=== PATIENT | male | born 1950 | race Caucasian/White ===

== ENCOUNTER 2020-01-07 13:55 | Outpatient (REF) | payer OTHER, SELFPAY ==
--- NOTE | 2020-01-07 14:01 | US_ITS ---
EXAMINATION: US right lumbar region. CLINICAL INFORMATION: Lump COMPARISON: None available at the time of this dictation. TECHNIQUE: High-frequency linear transducer ultrasound utilized, area of interest scanned, lumbar region. FINDINGS: No ultrasound evidence of soft tissue mass, cyst or abscess, or abnormal distortion. Incidental finding was made of gallstones. There is however no tenderness or pericholecystic fluid collection. US/US abdomen limited IMPRESSION: No ultrasound evidence of soft tissue lesion to correlate with the area of palpable lump. If patient remain symptomatic consider correlation with follow-up MRI with IV contrast. Incidental finding was made of cholelithiasis.
== END 2020-01-07 13:56 | disposition home or self-care (01) ==
LOC: HO.HMGCX 13:55
PROVIDERS: PCP Hospitalist; Visit Provider Nurse Practitioner Family
DX: R19.09 Other intra-abdominal and pelvic swelling, mass and lump (principal)
CPT/HCPCS: 76705

== ENCOUNTER 2020-09-28 12:07 | Outpatient (REF) | payer OTHER, SELFPAY ==
[2020-09-28 13:47] LABS: MANUAL DIFF FLAG NO
[2020-09-28 13:54] LABS: Basophils Absolute Auto 0.1 X10*3/uL (0.0-0.2); Basophils Percent Auto 0.9 % (0-2); Eosinophils Absolute Auto 0.3 X10*3/uL (0.0-0.4); Eosinophils Percent Auto 3.8 % (0-4); Hematocrit 43.8 % (42-52); Hemoglobin 14.7 g/dl (14.0-18.0); Imm Gran Abs Auto 0.03 X10*3/uL (0.00-0.03); Imm Gran Pct Auto 0.5 % (0.0-0.4); Lymphocytes Absolute Auto 1.6 X10*3/uL (1.2-4.9); Lymphocytes Percent Auto 24.4 % (20-40); Mean Corpuscular HGB Conc 33.6 g/dl (31.0-36.0); Mean Corpuscular Hemoglobin 33.3 pg (27.0-33.0); Mean Corpuscular Volume 99.1 fL (80-98); Mean Platelet Volume 10.4 fL (9.4-12.4); Monocytes Absolute Auto 0.6 X10*3/uL (0.1-1.2); Monocytes Percent Auto 9.4 % (2-11); Platelet Count 310 X10*3/uL (160-400); Red Blood Count 4.42 X10*6/uL (4.60-5.80); Red Cell Distribution Width 11.7 % (11.0-16.0); White Blood Count 6.6 X10*3/uL (4.8-10.8)
[2020-09-28 14:19] LABS: Alanine Aminotransferase 36 U/L (0-40); Albumin Level 4.6 g/dL (3.5-5.0); Alkaline Phosphatase 144 U/L (39-117); Anion Gap 12 (12-20); Aspartate Amino Transferase 27 U/L (5-37); Bilirubin Total 0.4 mg/dL (0.0-1.0); Blood Urea Nitrogen 22 mg/dL (9-16); Calcium 9.7 mg/dL (8.4-10.2); Carbon Dioxide 31 mmol/L (22-29); Chloride 100 mmol/L (96-108); Estimated Glomerular Filt Rate > 60; Glucose Random 96 mg/dL (60-115); Sodium 138 mmol/L (135-145); Total Protein 7.7 g/dL (6.5-8.0)
== END 2020-09-28 12:08 | disposition home or self-care (01) ==
LOC: HO.HMGCLDS 12:07
PROVIDERS: PCP Hospitalist; Visit Provider Hospitalist
DX: R53.83 Other fatigue (principal); Z20.822 Contact with and (suspected) exposure to COVID-19
CPT/HCPCS: 36415; 80053; 85025; U0003; U0005

== ENCOUNTER → 2020-11-08 08:46 | Outpatient (BNVA) | payer OTHER, SELFPAY | PROVIDERS: PCP Hospitalist; Referring Provider Hospitalist; Visit Provider Internal Medicine | DX: I71.2 Thoracic aortic aneurysm, without rupture (principal); R53.83 Other fatigue | CPT/HCPCS: 93005 ==

== ENCOUNTER → 2020-11-29 13:09 | Outpatient (BNVA) | payer OTHER, SELFPAY | PROVIDERS: PCP Hospitalist; Referring Provider Hospitalist; Visit Provider Internal Medicine ==

== ENCOUNTER → 2021-01-03 10:25 | Outpatient (REF) | payer OTHER, SELFPAY ==
--- NOTE | 2021-01-03 10:24 | CA_ITS ---
Transthoracic Echocardiogram Patient (Last, First, Middle): Alex Samuel, Gender: Male Date of : 1950 Age: 70 Procedure Date: 01/03/2021 Procedure Type: Transthoracic Echocardiogram Location: OP Height: 177.8 cm Weight: 86.18 kg BSA: 2.04 m2 Heart Rate: bpm BP: 140 / 90 mmHg Transition Lead: MAURIZIO Courtney MD: Gavin Cruz MD Floor Molder: Donte Peralta MD Symptoms: I71.2 - Thoracic aortic aneurysm, without rupture Study Quality: Fair ECG Rhythm: Sinus Conclusions: - 1. Normal LV systolic function with LVEF of 60 65% with impaired relaxation filling pattern 2. Normal cardiac valvular Doppler 3. [id number] dilatation of ascending aorta and aortic root, measured at 4.4 cm 4. Normal RV systolic pressure 5. No pericardial effusion Findings Left Ventricle Normal left ventricular size, thickness, and systolic function. The visually estimated ejection fraction is between 60-65%. Spectral Doppler is indicative of an impaired relaxation filling pattern. E/E prime ratio is between 8 and 15 consistent with indeterminate filling pressures. Right Ventricle Normal right ventricular cavity size and systolic function. Atria The left atrium is normal in size. There is lipomatous hypertrophy of the interatrial septum. There is no evidence of interatrial shunt. The right atrium is normal in size. Aortic Valve There is mild calcification of the aortic valve. There is mild thickening of the aortic valve. There is no aortic valve stenosis. There is no aortic valve regurgitation. Mitral Valve There is mild anterior and moderate posterior mitral leaflet thickening. There is moderate mitral annular calcification. There is trace mitral valve regurgitation. There is no mitral valve stenosis. Pulmonic Valve The pulmonic valve was not well visualized. Tricuspid Valve Likely normal tricuspid valve structure and function. There is trace tricuspid valve regurgitation. The right ventricular systolic pressure is normal. The right ventricular systolic pressure is 14 mmHg. There is no evidence of pulmonary hypertension. Great Vessels The pulmonary artery was not well visualized. There is mild dilatation of the ascending aorta measuring 4.40 cm. Venous The inferior vena cava is normal in size and collapses greater than 50% with inspiration. Pericardium/Pleural There is no evidence of pericardial effusion. Prior Study Comparison Changes noted compared to prior study dated: 12/18/2016. Ascending aorta is further dilated on this study at 4.4 cm. Clinical correlation suggested. Consider thoracic CTA Measurements 2D Linear Measurements IVSd: 1.08 0.6-0.9/0.6-1.0 cm LVIDd: 3.50 3.9-5.3/4.2-5.9 cm LVIDd Index: 1.72 2.4-3.2/2.2-3.1 cm/m2 LVIDs: 2.29 2.0-3.6 cm LVPWd: 0.92 0.7-1.1 cm Ao Root: 4.40 2.1-3.5 cm LA Diam: 2.90 2.7-3.8/3.0-4.0 cm LAIDs Index: 1.42 1.5-2.3 cm/m2 LV Mass: 128.35 67-162/88-224 g LV Mass Index: 62.91 43-95/49-115 g/m2 LVOT Diam: 2.00 3.0+(-)1.3 cm 2D Systolic Function EF 4C: 65.50 >55% EF 2C: 64.80 >55% EF BiP: 64.60 >55% Mitral Valve MV Pk E: 0.68 MV PK A: 0.93 MV Decel Time: 217.00 E/A: 0.70 E'Lateral: 5.98 E'Medial: 6.53 E/E' Med: 10.40 E/E' Lat: 11.30 PHT: 64.00 MVA PHT: 3.44 Decel Lewis: 3.11 Aortic Valve AoV Pk Ludwig: 1.19 AoV Mn Ludwig: 0.84 AoV VTI: 0.21 AoV Pk Grad: 6.00 Aov Mn Grad: 3.00 MAEGAN Cont.VTI: 2.13 LVOT LVOT Pk Ludwig: 0.76 LVOT Mn Ludwig: 0.54 LVOT VTI: 0.14 LVOT Pk Grad: 2.00 LVOT Mn Grad: 1.00 LVOT Diam: 2.00 LVOT Area: 3.14 Diastolic Function MV Pk E: 0.68 MV Pk A: 0.93 E/A: 0.70 E'Medial: 6.53 E/E' Med: 10.40 E' Laterial: 5.98 E/E' Lat: 11.30 Right Ventricle TAPSE (mm): 2.21 TVS' Ludwig: 15.60 Tricuspid Valve TR Pk Ludwig: 1.68 TR Pk Grad: 11.00 RA Press: 3.00 RVSP: 14.00 Great Vessels Aorta Ao Root-2D: 4.40 2.0-3.7 cm Ao Asc: 4.40 2.1-3.4 cm Ao Arch: 2.50 Updated in Other Vendor System with Status of Final Donte Peralta MD electronically signed on 01/03/2021 3:17:16 PM with status of Final
== END ==
LOC: HO.CARD 10:25
PROVIDERS: PCP Hospitalist; Visit Provider Internal Medicine
DX: I71.2 Thoracic aortic aneurysm, without rupture (principal)
CPT/HCPCS: 93306

== ENCOUNTER → 2021-01-10 14:33 | Outpatient (BNVA) | payer OTHER, SELFPAY | PROVIDERS: PCP Hospitalist; Referring Provider Hospitalist; Visit Provider Internal Medicine ==

== ENCOUNTER 2021-03-14 08:14 | Outpatient (REF) | payer OTHER, SELFPAY ==
--- NOTE | ~2021-03-14 | CT_ITS ---
EXAMINATION: CT SINUS WITHOUT CONTRAST CLINICAL INFORMATION: Deviated septum. COMPARISON: Normal sinus x-rays 03/02/2019 TECHNIQUE: 2 mm thin axial and reformatted 2 mm thin coronal and sagittal images of the sinuses were obtained. This CT examination was performed using dose optimization techniques as appropriate, variously including the following: *Automated exposure control *Adjustment of mA and/or kV according to patient size (this includes techniques or standardized protocols for targeted exams where dose is matched to indication/reason for exam; i.e. extremities or head) *Use of iterative reconstruction technique DLP: 104 mGy-cm FINDINGS: FRONTAL SINUSES AND DRAINAGE PATHWAYS: There is mild mucoperiosteal thickening with obstructed drainage pathway. MAXILLARY SINUSES AND DRAINAGE PATHWAYS: There is diffuse bilateral maxillary sinus mucoperiosteal thickening with obstructed bilateral ostiomeatal complexes from mucosal thickening. ETHMOID SINUSES: There is diffuse mucoperiosteal thickening in the bilateral ethmoid sinuses. The ethmoid roofs are symmetric, with olfactory fossa depth of 0.4 cm on the right and 0.4 cm on the left. SPHENOID SINUSES AND DRAINAGE PATHWAYS: Normal. The sphenoid ostia are patent. The carotid canals are covered by bone. NASAL CAVITY/NASOPHARYNX: The nasal cavity is clear. There is mild nasal septal deviation/spurring to the right. There is esperanza bullosa of the left middle turbinate. There is mild narrowing of the nasal cavity airway secondary to hypertrophic changes of the left middle and inferior turbinate, likely physiological. ADDITIONAL RELEVANT FINDINGS: No periapical disease is seen. The TMJs articulate normally. The orbits and skull base soft tissues are unremarkable. The middle ear cavities and mastoid air cells are clear. Limited evaluation demonstrates no acute intracranial findings. CT/CT sinus wo con IMPRESSION: Chronic pansinusitis with obstructed bilateral ostiomeatal complexes and frontoethmoidal recesses. Mild deviation of the nasal septum to the right with hypertrophied left turbinates and esperanza bullosa of the middle turbinate.
== END 2021-03-14 08:15 | disposition home or self-care (01) ==
LOC: HO.CT 08:14
PROVIDERS: PCP Hospitalist; Visit Provider Otolaryngology
DX: J34.2 Deviated nasal septum (principal); J33.0 Polyp of nasal cavity
CPT/HCPCS: 70486

== ENCOUNTER → 2021-07-18 13:29 | Outpatient (REF) | payer OTHER, SELFPAY ==
--- NOTE | 2021-07-18 13:37 | CA_ITS ---
Transthoracic Echocardiogram Patient (Last, First, Middle): Alex Samuel, Gender: Male Date of : 1950 Age: 71 Procedure Date: 07/18/2021 Procedure Type: Transthoracic Echocardiogram Height: 175.26 cm Weight: 88.45 kg BSA: 2.04 m2 Heart Rate: bpm BP: 130 / 82 mmHg Ski Patrol Director: SAMANTHA Courtney MD: Gavin Cruz MD Dictating Machine Transcriber: Donte Peralta MD Symptoms: I71.2 - Thoracic aortic aneurysm, without rupture Study Quality: Fair ECG Rhythm: Sinus Conclusions: - 1. Normal LV systolic function with impaired relaxation filling pattern 2. Normal cardiac valvular Doppler 3. Mildly dilated ascending aorta measured at 4.2 cm on this study 4. No pericardial effusion Findings Left Ventricle Normal left ventricular size, thickness, and systolic function. The visually estimated ejection fraction is between 60-65%. Spectral Doppler is indicative of an impaired relaxation filling pattern. E/E prime ratio is between 8 and 15 consistent with indeterminate filling pressures. Right Ventricle Normal right ventricular cavity size and systolic function. Atria Both atria are normal in size. Interatrial shunt cannot be excluded. Aortic Valve The aortic valve was not well visualized. There is mild calcification of the aortic valve. There is no aortic valve stenosis. There is no aortic valve regurgitation. Mitral Valve There is mild anterior and posterior mitral leaflet thickening. There is trace mitral valve regurgitation. There is no mitral valve stenosis. Pulmonic Valve The pulmonic valve was not well visualized. Tricuspid Valve Likely normal tricuspid valve structure and function. Tricuspid regurgitation envelope is inadequate for calculation of right ventricular systolic pressure. Great Vessels The pulmonary artery was not well visualized. There is mild dilatation of the ascending aorta measuring 4.20 cm. Venous The inferior vena cava is normal in size and collapses greater than 50% with inspiration. Pericardium/Pleural There is no evidence of pericardial effusion. Prior Study Comparison No significant change compared to prior study dated: 01/03/2021. ascending aorta measured to 4.2 cm, could be underestimated on this study Measurements 2D Linear Measurements IVSd: 0.98 0.6-0.9/0.6-1.0 cm LVIDd: 4.06 3.9-5.3/4.2-5.9 cm LVIDd Index: 1.99 2.4-3.2/2.2-3.1 cm/m2 LVIDs: 2.99 2.0-3.6 cm LVPWd: 0.85 0.7-1.1 cm LA Diam: 2.80 2.7-3.8/3.0-4.0 cm LAIDs Index: 1.37 1.5-2.3 cm/m2 LV Mass: 142.15 67-162/88-224 g LV Mass Index: 69.68 43-95/49-115 g/m2 LVOT Diam: 2.50 3.0+(-)1.3 cm Mitral Valve MV Pk E: 0.64 MV PK A: 1.04 MV Decel Time: 154.00 E/A: 0.60 E'Lateral: 7.40 E'Medial: 6.31 E/E' Med: 10.20 E/E' Lat: 8.70 PHT: 45.00 MVA PHT: 4.89 Decel [place]: 4.17 Aortic Valve AoV Pk Ludwig: 1.39 AoV Mn Ludwig: 0.94 AoV VTI: 0.23 AoV Pk Grad: 8.00 Aov Mn Grad: 4.00 MAEGAN Cont.VTI: 4.36 LVOT LVOT Pk Ludwig: 1.10 LVOT Mn Ludwig: 0.70 LVOT VTI: 0.21 LVOT Pk Grad: 5.00 LVOT Mn Grad: 2.00 LVOT Diam: 2.50 LVOT Area: 4.91 Diastolic Function MV Pk E: 0.64 MV Pk A: 1.04 E/A: 0.60 E'Medial: 6.31 E/E' Med: 10.20 E' Laterial: 7.40 E/E' Lat: 8.70 Right Ventricle TAPSE (mm): 27.80 TVS' Ludwig: 19.00 Tricuspid Valve RA Press: 3.00 Great Vessels Aorta Sinus of Valsalva: 4.03 2.0-3.[address] Ridge: 3.72 1.7-3.4 cm Ao Asc: 4.20 2.1-3.4 cm Ao Arch: 2.80 Ao Desc: 1.50 Pulmonary Veins Pulm Vein S/D 1.80 Pulmonary Valve PV Pk Ludwig: 0.90 Peak PV Grad: 3.00 Updated in Other Vendor System with Status of Final Dnote Peralta MD electronically signed on 07/20/2021 2:50:06 PM with status of Final
== END ==
LOC: HO.CARD 13:29
PROVIDERS: Visit Provider Internal Medicine
DX: I71.2 Thoracic aortic aneurysm, without rupture (principal)
CPT/HCPCS: 93306

== ENCOUNTER → 2021-07-25 14:25 | Outpatient (BNVA) | payer OTHER, SELFPAY | PROVIDERS: PCP Hospitalist; Referring Provider Hospitalist; Visit Provider Internal Medicine | DX: I10 Essential (primary) hypertension (principal) ==

== ENCOUNTER → 2022-07-19 08:42 | Outpatient (REF) | payer OTHER, SELFPAY ==
--- NOTE | 2022-07-19 08:47 | CA_ITS ---
Transthoracic Echocardiogram Patient (Last, First, Middle): Alex Samuel, Gender: Male Date of : 1950 Age: 72 Procedure Date: 07/19/2022 Procedure Type: Transthoracic Echocardiogram Location: OP Height: 177.8 cm Weight: 90.72 kg BSA: 2.09 m2 Heart Rate: bpm BP: 124 / 78 mmHg Page Designer: TO Referring MD: Gavin Cruz MD Symptoms: I71.2 - Thoracic aortic aneurysm, without rupture Study Quality: Fair ECG Rhythm: Sinus Conclusions: - The left ventricular systolic function is normal. The calculated ejection fraction is 63% by biplane method. - No obvious valvular pathology seen on this study. - There is mild dilatation of the ascending aorta measuring 4.20 cm. Findings Left Ventricle Normal left ventricular cavity size. The left ventricular systolic function is normal. The calculated ejection fraction is 63% by biplane method. There is no evidence of regional wall motion abnormalities. Evidence suggests grade I (mild) diastolic dysfunction. There is moderate septal asymmetric hypertrophy. Right Ventricle Normal right ventricular cavity size and systolic function. Atria Both atria are normal in size. Aortic Valve There is a normal trileaflet aortic valve. There is mild calcification of the aortic valve. There is no aortic valve stenosis. There is no aortic valve regurgitation. Mitral Valve There is mild anterior mitral leaflet thickening. There is no mitral valve regurgitation. There is no mitral valve stenosis. Pulmonic Valve The pulmonic valve is likely normal. Tricuspid Valve There is trace tricuspid valve regurgitation. There is no evidence of pulmonary hypertension. Great Vessels There is mild dilatation of the ascending aorta measuring 4.20 cm. Venous The inferior vena cava is normal in size and collapses greater than 50% with inspiration. Pericardium/Pleural There is no evidence of pericardial effusion. Prior Study Comparison No significant change compared to prior study dated: 07/18/2021. Recommendations, Care & Conclusions No obvious valvular pathology seen on this study. Measurements 2D Linear Measurements IVSd: 1.44 0.6-0.9/0.6-1.0 cm LVIDd: 3.81 3.9-5.3/4.2-5.9 cm LVIDd Index: 1.82 2.4-3.2/2.2-3.1 cm/m2 LVIDs: 2.34 2.0-3.6 cm LVPWd: 0.86 0.7-1.1 cm LA Diam: 3.50 2.7-3.8/3.0-4.0 cm LAIDs Index: 1.67 1.5-2.3 cm/m2 LV Mass: 180.17 67-162/88-224 g LV Mass Index: 86.21 43-95/49-115 g/m2 LVOT Diam: 2.40 3.0+(-)1.3 cm 2D Systolic Function EF 4C: 62.50 >55% EF 2C: 67.00 >55% EF BiP: 62.80 >55% Mitral Valve MV Pk E: 0.54 MV PK A: 0.86 MV Decel Time: 163.00 E/A: 0.60 E'Lateral: 6.20 E'Medial: 6.09 E/E' Med: 8.90 E/E' Lat: 8.70 PHT: 48.00 MVA PHT: 4.58 Decel [place]: 3.30 Aortic Valve AoV Pk Ludwig: 1.31 AoV Mn Ludwig: 0.85 AoV VTI: 0.23 AoV Pk Grad: 7.00 Aov Mn Grad: 3.00 MAEGAN Cont.VTI: 3.85 LVOT LVOT Pk Ludwig: 1.02 LVOT Mn Ludwig: 0.66 LVOT VTI: 0.20 LVOT Pk Grad: 4.00 LVOT Mn Grad: 2.00 LVOT Diam: 2.40 LVOT Area: 4.52 Diastolic Function MV Pk E: 0.54 MV Pk A: 0.86 E/A: 0.60 E'Medial: 6.09 E/E' Med: 8.90 E' Laterial: 6.20 E/E' Lat: 8.70 Right Ventricle TAPSE (mm): 27.40 TVS' Ludwig: 15.30 Tricuspid Valve RA Press: 3.00 Great Vessels Aorta Sinus of Valsalva: 4.07 2.0-3.[address] Ridge: 3.54 1.7-3.4 cm Ao Asc: 4.20 2.1-3.4 cm Ao Arch: 3.90 Updated in Other Vendor System with Status of Final Gavin Cruz MD electronically signed on 07/21/2022 9:27:15 AM with status of Final
== END ==
LOC: HO.CARD 08:42
PROVIDERS: PCP Physician Assistant; Visit Provider Internal Medicine
DX: I71.20 Thoracic aortic aneurysm, without rupture, unspecified (principal)
CPT/HCPCS: 93306

== ENCOUNTER → 2022-07-29 14:16 | Outpatient (BNVA) | payer OTHER, SELFPAY | PROVIDERS: PCP Physician Assistant; Referring Provider Hospitalist; Visit Provider Internal Medicine | DX: I10 Essential (primary) hypertension (principal); I71.20 Thoracic aortic aneurysm, without rupture, unspecified | CPT/HCPCS: 93005 ==

== ENCOUNTER → 2022-08-19 12:17 | Outpatient (REF) | payer OTHER, SELFPAY ==
--- NOTE | 2022-08-19 12:19 | CA_ITS ---
Acquisition Time: 2022-08-19 12:50:58 Total Exercise Time: 00:05:30 Test Indications: CAD, HTN Medications: SEE H Protocol: TEQUILA Max HR: 150 BPM 102% of Pred: 147 BPM Max BP: 148/080 mmHG Max Work Load: 5.8 METS Exercise stress test with exercise 5 min 30 sec of Tequila stage 1 ( incline increased to 12% and for last 30 sec speed increased to 2 MPH), with fatigue and request to stop, without anginal symptoms, with isolated PVCs, with normotensive response to exercise, without EKG changes meeting criteria for ischemia. Echo images obtained at rest and immediately post peak exercise. Definity contrast used. Test reviewed with Dr Peralta. Referred By: Gavin Cruz Overread By: NETO LOBO
== END ==
LOC: HO.CARD 12:17
PROVIDERS: PCP Physician Assistant; Visit Provider Internal Medicine
DX: I25.10 Atherosclerotic heart disease of native coronary artery without angina pectoris (principal)
CPT/HCPCS: 93350; Q9957

== ENCOUNTER 2023-05-18 16:09 | Inpatient (IN) | payer OTHER, SELFPAY ==
--- NOTE | ~2023-05-18 | FL_ITS ---
EXAMINATION: XR FLUOROSCOPY WITH IMAGES CLINICAL INFORMATION: ERCP. COMPARISON: CT abdomen pelvis 05/18/2023. TECHNIQUE: Fluoroscopy Supervised By: Dr. Barber. Fluoroscopy Time: 0.9 minutes. Cumulative Dose: 26.4 mGy. DAP: 7.21 Gycm2. Images: 8. FINDINGS: An endoscope is present with a catheter cannulating the common bile duct. Contrast is injected. No large filling defects are seen, but please see Dr. Barber's operative note for full details. FL/FL guidance in OR IMPRESSION: Fluoroscopy and spot films provided during ERCP.
--- NOTE | ~2023-05-18 | US_ITS ---
EXAMINATION: US ABDOMEN LIMITED CLINICAL INFORMATION: Epigastric pain. Elevated LFTs. COMPARISON: 01/07/2020 TECHNIQUE: Real-time imaging of the right upper quadrant abdominal viscera. FINDINGS: PANCREAS: Not well-visualized due to overlying bowel gas. LIVER: Diffuse increased echogenicity. The liver is normal in size. The liver contour is normal. No focal hepatic lesion. There is no intrahepatic biliary duct dilatation seen. GALLBLADDER: Tiny gallstones and sludge no acute inflammatory changes. COMMON BILE DUCT: Normal in caliber measuring 0.5 cm in diameter. RIGHT KIDNEY: Normal. No hydronephrosis. No renal calculi or focal parenchymal lesions. The kidney measures 10.1 cm in maximum dimension. FREE FLUID: None. US/US abdomen limited IMPRESSION: Tiny gallstones and sludge without acute inflammatory changes.
--- NOTE | ~2023-05-18 | CT_ITS ---
EXAMINATION: CT ABDOMEN AND PELVIS WITH CONTRAST CLINICAL INFORMATION: Epigastric pain COMPARISON: None available. TECHNIQUE: Multidetector volumetric images were obtained from the superior aspect of the liver through the pubic symphysis following administration 85 mL of Omnipaque 350 intravenous contrast. Sagittal and coronal reformatted images were obtained on the technologist's workstation. Oral contrast: No This CT examination was performed using dose optimization techniques as appropriate, variously including the following: *Automated exposure control *Adjustment of mA and/or kV according to patient size (this includes techniques or standardized protocols for targeted exams where dose is matched to indication/reason for exam; i.e. 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 There is chronic. Coronary calcifications. LIVER, GALLBLADDER, AND BILIARY TREE: The liver is normal in size, shape, and attenuation. No focal hepatic lesion or biliary ductal dilatation is present. Multiple small gallstones within the gallbladder. No gallbladder wall thickening. No bile duct dilatation. PANCREAS: Unremarkable. SPLEEN: Unremarkable. ADRENAL GLANDS: Unremarkable. KIDNEYS AND URETERS: The kidneys are normal in size, shape, and attenuation. No hydronephrosis, hydroureter, or calculi seen. No perinephric stranding. BLADDER: Unremarkable. GASTROINTESTINAL TRACT: There are scattered diverticula of the sigmoid colon. There is no diverticulitis. There is no bowel wall thickening /edema. There is no bowel obstruction. There is a moderate volume of stool in the colon. The appendix is normal . The small bowel loops are unremarkable. The stomach is normal. There is no hiatal hernia. ABDOMINAL WALL: No significant hernia is appreciated. LYMPH NODES: Normal. VASCULAR: Vascular calcifications of aorta and iliac arteries. No aneurysm. PELVIC VISCERA: Unremarkable. OSSEOUS STRUCTURES: Multilevel degenerative spondylosis spine. CT/CT abdomen pelvis w IV con IMPRESSION: 1. No acute abnormality CT scan abdomen pelvis. 2. Cholelithiasis. No acute change of the gallbladder. No bile duct dilatation. Fleischner guidelines were followed.
--- NOTE | ~2023-05-18 | FL_ITS ---
EXAMINATION: XR FLUOROSCOPY WITH IMAGES CLINICAL INFORMATION: Laparoscopic cholecystectomy with cholangiogram. COMPARISON: Dr. Ortega TECHNIQUE: Fluoroscopy Supervised By: Dr. Ortega. Fluoroscopy Time: 19.1 seconds Cumulative Dose: 4.84 mGy-cm DAP: None. Images: 4. FINDINGS: Catheter is present in the common bile duct via the cystic duct. Contrast fills the biliary tree with no filling defects seen. A small amount of contrast is seen in the duodenum. Please see Dr. Ortega's report for complete details. FL/FL guidance in OR IMPRESSION: Fluoroscopy and spot films provided during intraoperative cholangiography.
--- NOTE | ~2023-05-18 | MR_ITS ---
EXAMINATION: MR ABDOMEN WITHOUT CONTRAST CLINICAL INFORMATION: Cholangitis versus choledocholithiasis. COMPARISON: CT abdomen/pelvis 05/18/2023 TECHNIQUE: MR abdomen is performed without gadolinium contrast. Heavily T2 weighted MRCP sequences were also obtained. FINDINGS: LUNG BASES: No pleural or pericardial effusion. LIVER, GALLBLADDER, AND BILIARY TREE: The liver is normal in size and contour.. Hepatic steatosis. The common duct measures up to 8 mm at the pepito hepatis. No intraductal filling defects. Mild intrahepatic biliary ductal dilatation is present. The gallbladder is hydropic with numerous layering gallstones. There is gallbladder wall thickening. PANCREAS: Proximal main pancreatic duct measures up to 4 mm. SPLEEN: Not enlarged. ADRENAL GLANDS: No adrenal mass. KIDNEYS AND URETERS: The kidneys are normal in size and shape. No hydronephrosis. Nonspecific perinephric stranding. GASTROINTESTINAL TRACT: Imaged loops of small and large bowel are not obstructed. LYMPH NODES: No bulky lymphadenopathy. VASCULAR: Normal caliber abdominal aorta. MR/MR MRCP IMPRESSION: Hydropic gallbladder with gallbladder wall thickening and layering gallstones. Findings may represent acute cholecystitis. There is dilatation of the proximal main pancreatic duct and common duct as well as the central intrahepatic ducts. An ampullary lesion cannot be excluded.
[2023-05-18 16:53] VITALS: BP 141/78; PULSE 100; RESP 19; TEMP 36.6; O2SAT 98; BMI 29.4
--- NOTE | 2023-05-18 17:37 | ED.ABDPAIN ---
HPI - Abdominal Pain General Chief Complaint: Abdominal Pain Stated Complaint: IBS/upper stomach pain Time Seen by Provider: 05/18/23 21:18 Source: patient Mode of arrival: ambulatory Limitations: no limitations History of Present Illness HPI narrative: Patient comes to the emergency room complaining of epigastric pain since this morning. Patient states that he has history of IBS, is being followed by gastroenterology. Patient states that the pain is a little bit more different than his usual IBS. Patient denies any fever chills, no nausea vomiting or diarrhea. Denies any chest pain. Related Data Home Medications Medication Instructions Recorded Confirmed fluoxetine 20 mg capsule 20 mg PO DAILY 01/04/20 05/19/23 ibuprofen 800 mg tablet 800 mg PO TID PRN 01/04/20 07/29/22 omeprazole 40 mg capsule,delayed 40 mg PO DAILY 01/04/20 05/19/23 release pravastatin 10 mg tablet 10 mg PO DAILY 11/08/20 05/19/23 amlodipine 5 mg tablet 5 mg PO DAILY 07/25/21 07/29/22 amlodipine 5 mg-olmesartan 20 mg 1 tab PO DAILY 05/19/23 05/19/23 tablet fluticasone furoate 200 1 ea inhalation DAILY 05/19/23 mcg-vilanterol 25 mcg/dose inhalation powder (Breo Ellipta) Allergies Allergy/AdvReac Type Severity Reaction Status Date / Time No Known Allergies Allergy Verified 05/18/23 16:53 [No Known Allergies*] Review of Systems Review of Systems Constitutional : No Weight loss, No Fever, No Chills, No Night Sweats, No Fatigue, No Malaise ENT/Mouth : No Hearing loss, No Ear Pain, No Nasal Congestion, No Sinus Pain, No Hoarseness, No sore throat, No Rhinorrhea, No Swallowing Difficulty Eyes: No Eye Pain, No Swelling, No Redness, No Foreign Body, No Discharge, No Vision Changes Cardiovascular : No Chest Pain, No SOB, No Dyspnea on Exertion, No Orthopnea, No Edema, No Palpitations Respiratory : No Cough, No Sputum, No Wheezing, No Smoke Exposure, No Dyspnea Gastrointestinal : No Nausea, No Vomiting, No Diarrhea, No Constipation, complaining of epigastric pain, constant, nonradiating, No Hematochezia, No Melena Genitourinary : no irregular bleeding, No Dysuria, No Urinary Frequency, No Hematuria, No Urinary Incontinence, No Urgency, No Flank Pain, No Urinary Flow Changes, No Hesitancy Musculoskeletal : No joint pain, No Myalgias, No Joint Swelling Skin : No Skin Lesions, No rash Neuro : No Weakness, No Numbness, No Paresthesias, No Loss of Consciousness, No Dizziness, No Headache Psych : No Anxiety/Panic, No Depression, No SI/HI/AH/VH, No Social Issues, Heme/Lymph: No Bruising, No Bleeding,No Lymphadenopathy Endocrine : No Polyuria, No Polydipsia, No Temperature Intolerance [facility] Past Medical History Medical History (Updated 05/19/23 @ 01:43 by Theresa Nj MD) IBS (irritable bowel syndrome) Essential hypertension Ascending aortic aneurysm Surgical History History of lumbar surgery (~2012) Family History Family History Father Cancer Mother Cancer Social History Social History Alcohol intake: current Alcohol intake frequency: 0-2 drinks per day Patient Tobacco Use Status: Never used Tobacco Smoked in Last 30 Days: No Use of substances other than those prescribed or required for medical reasons: No Advance Directives: No Advance Directives Information Provided: No Physical Exam ED Vital Signs: Vital Signs - 24 hr 05/18/23 16:53 05/18/23 21:35 05/19/23 00:00 Temperature 98 F 98.2 F 98.5 F Pulse Rate 100 98 97 Respiratory Rate 19 18 19 Blood Pressure 141/78 H 143/80 H 113/63 Pulse Oximetry 98 94 96 Oxygen Delivery Method Room Air Room Air Room Air 05/19/23 01:46 Temperature 101.2 F H Pulse Rate 100 Respiratory Rate 18 Blood Pressure 137/114 H Pulse Oximetry 96 Oxygen Delivery Method Room Air BMI result Body Mass Index 29.4 Const Other: Appearance: Alert. Oriented X3. No acute distress. Eyes: Pupils equal, round and reactive to light. ENT: Pharynx normal. Neck: Normal inspection. Neck supple. No lymph nodes noted. No crepitus CVS: Normal heart rate and rhythm. Pulses normal. Normal S1 and S2 Respiratory: No respiratory distress. Breath sounds normal. No Wheezing. No rales Abdomen: Soft , mild discomfort to palpation in epigastric area, negative Stephens sign, No rigidity. No distention. Skin: Skin warm and dry. Normal skin color. Normal skin turgor. Extremities: No lower extremity edema. No Lacerations. No Rash Neuro: Oriented X 3. No motor deficit. No sensory deficit. Moving all extremities. No slurred speech. CN 2 through 12 grossly intact Psych: calm, cooperative, normal affect Course Course Course Narrative: This is a rapid medical exam. Deferred additional HPI, ROS, PE to primary provider. 73-year-old male with history of IBS, HTN, ascending aortic aneurysm here with complaints of mid abdominal pain. No nausea/vomiting/diarrhea/urinary symptoms. Will obtain labs, EKG, UA, viral testing VSS Medical Decision Making Medical Decision Making MDM Narrative: My interpretation of labs, white blood cell count elevated, 17.3, LFTs are elevated, normal chemistry otherwise, troponin negative, lipase normal -my interpretation of EKG: Normal sinus rhythm, heart rate 108, no ST segment depression or elevation, no T-wave inversion, QTC 426 -patient does not have a fever, normal blood pressure. -patient's LFTs are elevated, patient admits that he drinks 2 beers every night, which may be causing the elevation in LFTs. -ultrasound: No acute abnormality other than tiny gallstones and sludge without inflammatory changes -CT scan of the abdomen: My interpretation, no obvious acute abnormality. Cholelithiasis without cholecystitis -patient states that he feels back to normal, mild abdominal pain but states that he has no nausea vomiting, feels well and would like to go home. At this time, 01:10, when I went to see the patient, patient states that he has no significant abdominal pain,. However, the patient feels warm to touch. I asked 1 of the techs to check a rectal temperature, patient has a fever of 101.8. Blood pressure is still stable. -Patient receiving IV fluids and antibiotics. -source of infection remains unclear. Chest x-ray pending, lactic acid and blood culture pending -I discussed the patient with Dr. Israel from Gastroenterology, patient will need an MRCP in the morning. At this time, it is unclear if the patient has acute cholangitis, but can not be ruled out yet -also, I discussed the patient with Dr. Wren from the Medicine team, patient being admitted. -I discussed the above-mentioned with the patient, patient agreeable with admission. Differential Diagnosis Differential Diagnoses: The differential diagnosis associated with the presentation includes (Ascending cholangitis, cholecystitis, pancreatitis, colitis, IBS) Admission/Observation Consideration of admission/observation: Escalation of care including admission/observation considered (Given patient's history of symptoms and labs, admission is considered) Consult Healthcare Provider Management of the patient was discussed with: Hospitalist and [employer] [facility] Lab Data MDM Lab Attestation statement: I reviewed the patient's lab results. 05/18/23 17:27 05/18/23 17:27 Labs: Lab Results 05/18/23 05/18/23 05/18/23 Range/Units 17:27 17:41 19:14 WBC 17.3 H (4.8-10.8) X10*3/uL RBC 4.19 L (4.60-5.80) X10*6/uL Hgb 14.9 (14.0-18.0) g/dl Hct 41.5 L (42.0-52.0) % MCV 99.0 H (80.0-98.0) fL MCH 35.6 H (27.0-33.0) pg MCHC 35.9 (31.0-36.0) g/dl RDW 11.5 (11.0-16.0) % Plt Count 339 (160-400) X10*3/uL MPV 9.3 L (9.4-12.4) fL Immature Gran % (Auto) 0.6 H (0.0-0.4) % Neut % (Auto) 86.3 H (45-73) % Lymph % (Auto) 7.5 L (20-40) % Falls % (Auto) 4.3 (2-11) % Eos % (Auto) 0.9 (0-4) % Baso % (Auto) 0.4 (0-2) % Lymph # (Auto) 1.3 (1.2-4.9) X10*3/uL Falls # (Auto) 0.7 (0.1-1.2) X10*3/uL Eos # (Auto) 0.2 (0.0-0.4) X10*3/uL Baso # (Auto) 0.1 (0.0-0.2) X10*3/uL Abs Immat Gran (auto) 0.11 H (0.00-0.03) X10*3/uL Absolute Neuts (auto) 14.9 H (2.0-8.3) x10*3/uL Absolute Nucleated RBC 0.000 (0.0-0.012) X10*3/uL Nucleated RBC % (auto) 0.0 (0.0-0.2) /100WBC PT (11.1-13.3) SEC INR (0.9-1.1) APTT (26.0-36.8) SEC Sodium 137 (135-145) mmol/L Potassium 4.6 (3.3-5.1) mmol/L Chloride 102 (96-108) mmol/L Carbon Dioxide 25 (22-29) mmol/L Anion Gap 15 (12-20) BUN 15 (9-16) mg/dL Creatinine 0.91 (0.5-1.4) mg/dL Estim Creat Clear Calc 81.5 Estimated GFR > 60 Random Glucose 145 H (60-115) mg/dL Lactic Acid (0.5-2.0) mmol/L Calcium 9.4 (8.4-10.2) mg/dL Total Bilirubin 1.6 H (0.0-1.0) mg/dL Direct Bilirubin 1.1 H (0.0-0.5) mg/dL AST 127 H (5-37) U/L ALT 90 H (0-40) U/L Alkaline Phosphatase 174 H (39-117) U/L Troponin I High Sens 3.6 (<3.5-35.0) ng/L Total Protein 8.1 H (6.5-8.0) g/dL Albumin 4.5 (3.5-5.0) g/dL Lipase 43 (8-78) U/L Urine Color Dark Yellow Urine Appearance Clear Urine pH 7.0 (5.0-9.0) Ur Specific [place] 1.015 (1.005-1.025) Urine Protein Negative (Neg-Trace) mg/dL Urine Glucose (UA) Negative (Negative) mg/dL Urine Ketones Negative (Negative) mg/dL Urine Blood Negative (Negative) Urine Nitrite Negative (Negative) Ur Leukocyte Esterase Negative (Negative) Influenza Type A (PCR) NEGATIVE (Negative) Influenza Type B (PCR) NEGATIVE (Negative) RSV RNA Qual (PCR) NEGATIVE (Negative) SARS-CoV-2 RNA (RT-PCR) NEGATIVE (Negative) 05/19/23 Range/Units 01:38 WBC (4.8-10.8) X10*3/uL RBC (4.60-5.80) X10*6/uL Hgb (14.0-18.0) g/dl Hct (42.0-52.0) % MCV (80.0-98.0) fL MCH (27.0-33.0) pg MCHC (31.0-36.0) g/dl RDW (11.0-16.0) % Plt Count (160-400) X10*3/uL MPV (9.4-12.4) fL Immature Gran % (Auto) (0.0-0.4) % Neut % (Auto) (45-73) % Lymph % (Auto) (20-40) % Falls % (Auto) (2-11) % Eos % (Auto) (0-4) % Baso % (Auto) (0-2) % Lymph # (Auto) (1.2-4.9) X10*3/uL [place] # (Auto) (0.1-1.2) X10*3/uL Eos # (Auto) (0.0-0.4) X10*3/uL Baso # (Auto) (0.0-0.2) X10*3/uL Abs Immat Gran (auto) (0.00-0.03) X10*3/uL Absolute Neuts (auto) (2.0-8.3) x10*3/uL Absolute Nucleated RBC (0.0-0.012) X10*3/uL Nucleated RBC % (auto) (0.0-0.2) /100WBC PT 12.3 (11.1-13.3) SEC INR 1.0 (0.9-1.1) APTT 26.4 (26.0-36.8) SEC Sodium (135-145) mmol/L Potassium (3.3-5.1) mmol/L Chloride (96-108) mmol/L Carbon Dioxide (22-29) mmol/L Anion Gap (12-20) BUN (9-16) mg/dL Creatinine (0.5-1.4) mg/dL Estim Creat Clear Calc Estimated GFR Random Glucose (60-115) mg/dL Lactic Acid 1.1 (0.5-2.0) mmol/L Calcium (8.4-10.2) mg/dL Total Bilirubin (0.0-1.0) mg/dL Direct Bilirubin (0.0-0.5) mg/dL AST (5-37) U/L ALT (0-40) U/L Alkaline Phosphatase (39-117) U/L Troponin I High Sens (<3.5-35.0) ng/L Total Protein (6.5-8.0) g/dL Albumin (3.5-5.0) g/dL Lipase (8-78) U/L Urine Color Urine Appearance Urine pH (5.0-9.0) Ur Specific [place] (1.005-1.025) Urine Protein (Neg-Trace) mg/dL Urine Glucose (UA) (Negative) mg/dL Urine Ketones (Negative) mg/dL Urine Blood (Negative) Urine Nitrite (Negative) Ur Leukocyte Esterase (Negative) Influenza Type A (PCR) (Negative) Influenza Type B (PCR) (Negative) RSV RNA Qual (PCR) (Negative) SARS-CoV-2 RNA (RT-PCR) (Negative) Independent Interpretation I performed an independent interpretation of an: Ultrasound and CT Scan Radiology Impression Discussion of test interpretation with radiology: I have reviewed the radiologist's reading. Radiologist Impression: FINDINGS: PANCREAS: Not well-visualized due to overlying bowel gas. LIVER: Diffuse increased echogenicity. The liver is normal in size. The liver contour is normal. No focal hepatic lesion. There is no intrahepatic biliary duct dilatation seen. GALLBLADDER: Tiny gallstones and sludge no acute inflammatory changes. COMMON BILE DUCT: Normal in caliber measuring 0.5 cm in diameter. RIGHT KIDNEY: Normal. No hydronephrosis. No renal calculi or focal parenchymal lesions. The kidney measures 10.1 cm in maximum dimension. FREE FLUID: None. US/US abdomen limited IMPRESSION: Tiny gallstones and sludge without acute inflammatory changes. 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 There is chronic. Coronary calcifications. LIVER, GALLBLADDER, AND BILIARY TREE: The liver is normal in size, shape, and attenuation. No focal hepatic lesion or biliary ductal dilatation is present. Multiple small gallstones within the gallbladder. No gallbladder wall thickening. No bile duct dilatation. PANCREAS: Unremarkable. SPLEEN: Unremarkable. ADRENAL GLANDS: Unremarkable. KIDNEYS AND URETERS: The kidneys are normal in size, shape, and attenuation. No hydronephrosis, hydroureter, or calculi seen. No perinephric stranding. BLADDER: Unremarkable. GASTROINTESTINAL TRACT: There are scattered diverticula of the sigmoid colon. There is no diverticulitis. There is no bowel wall thickening /edema. There is no bowel obstruction. There is a moderate volume of stool in the colon. The appendix is normal . The small bowel loops are unremarkable. The stomach is normal. There is no hiatal hernia. ABDOMINAL WALL: No significant hernia is appreciated. LYMPH NODES: Normal. VASCULAR: Vascular calcifications of aorta and iliac arteries. No aneurysm. PELVIC VISCERA: Unremarkable. OSSEOUS STRUCTURES: Multilevel degenerative spondylosis spine. CT/CT abdomen pelvis w IV con IMPRESSION: 1. No acute abnormality CT scan abdomen pelvis. 2. Cholelithiasis. No acute change of the gallbladder. No bile duct dilatation. Independent Historian Clinical information obtained from an independent historian. History obtained from or confirmed by: Other (Patient's daughter) Medications Administered Discontinued Medications Generic Name Dose Route Start Last Admin Trade Name Freq PRN Reason Stop Dose Admin Acetaminophen 975 mg 05/19/23 01:18 05/19/23 01:40 Acetaminophen 325 Mg Tablet PO 05/19/23 01:19 975 mg ONCE ONE Administration Piperacillin Sod/Tazobactam 50 mls @ 100 mls/hr 05/19/23 01:11 05/19/23 02:10 Sod 3.375 gm/ Sodium Chloride IV 05/19/23 01:40 Infused ONCE ONE Infusion Sodium Chloride 1,000 mls @ 999 mls/hr 05/19/23 01:12 05/19/23 01:40 Ns IVCONT 05/19/23 02:12 999 mls/hr .Q1H1M ONE Administration Iohexol 85 ml 05/18/23 23:55 05/18/23 23:55 Iohexol 350 Mg/Ml 100 Ml Infus..Btl IV 05/18/23 23:56 85 ml ONCE ONE Administration Morphine Sulfate 1 mg 05/19/23 01:04 05/19/23 01:38 Morphine Sulfate 2 Mg/Ml Cartridge IVPUSH 05/19/23 01:05 1 mg ONCE ONE Administration Protocol Critical Care Time Critical Care Time Critical Care Time: Yes Total Critical Care Time: 75 Attestation: I have personally provided critical care time. Time includes review of lab data, radiology results, discussion with consultants, and monitoring for potential decompensation. Intervention performed as documented. Discharge Plan Discharge Clinical Impression: Acute cholangitis Patient Disposition: Admitted As Inpatient
--- NOTE | 2023-05-18 17:39 | ECG_ITS ---
Test Reason : ABD PAIN Blood Pressure : / mmHG Vent. Rate : 108 BPM Atrial Rate : 108 BPM P-R Int : 196 ms QRS Dur : 084 ms QT Int : 318 ms P-R-T Axes : 045 -02 049 degrees QTc Int : 426 ms Sinus tachycardia Otherwise normal ECG When compared with ECG of 20-MAR-2017 17:08, No significant change was found Referred By: Kerrie Liao Electronically Signed By:GUILLE TORRES MD
[2023-05-18 17:58] LABS: MANUAL DIFF FLAG NO
[2023-05-18 17:59] LABS: Basophils Absolute Auto 0.1 X10*3/uL (0.0-0.2); Basophils Percent Auto 0.4 % (0-2); Eosinophils Absolute Auto 0.2 X10*3/uL (0.0-0.4); Eosinophils Percent Auto 0.9 % (0-4); Hematocrit 41.5 % (42.0-52.0); Hemoglobin 14.9 g/dl (14.0-18.0); Imm Gran Abs Auto 0.11 X10*3/uL (0.00-0.03); Imm Gran Pct Auto 0.6 % (0.0-0.4); Lymphocytes Absolute Auto 1.3 X10*3/uL (1.2-4.9); Lymphocytes Percent Auto 7.5 % (20-40); Mean Corpuscular HGB Conc 35.9 g/dl (31.0-36.0); Mean Corpuscular Hemoglobin 35.6 pg (27.0-33.0); Mean Platelet Volume 9.3 fL (9.4-12.4); Monocytes Absolute Auto 0.7 X10*3/uL (0.1-1.2); Monocytes Percent Auto 4.3 % (2-11); Neutrophils Absolute Auto 14.9 x10*3/uL (2.0-8.3); Neutrophils Percent Auto 86.3 % (45-73); Platelet Count 339 X10*3/uL (160-400); Red Blood Count 4.19 X10*6/uL (4.60-5.80); Red Cell Distribution Width 11.5 % (11.0-16.0); White Blood Count 17.3 X10*3/uL (4.8-10.8)
[2023-05-18 18:20] LABS: Alanine Aminotransferase 90 U/L (0-40); Albumin Level 4.5 g/dL (3.5-5.0); Alkaline Phosphatase 174 U/L (39-117); Anion Gap 15 (12-20); Aspartate Amino Transferase 127 U/L (5-37); Bilirubin Direct 1.1 mg/dL (0.0-0.5); Bilirubin Total 1.6 mg/dL (0.0-1.0); Blood Urea Nitrogen 15 mg/dL (9-16); Calcium 9.4 mg/dL (8.4-10.2); Carbon Dioxide 25 mmol/L (22-29); Chloride 102 mmol/L (96-108); Creatinine Clr Calc Pharmacy 81.5; Estimated Glomerular Filt Rate > 60; Glucose Random 145 mg/dL (60-115); Lipase 43 U/L (8-78); Potassium 4.6 mmol/L (3.3-5.1); Sodium 137 mmol/L (135-145); Total Protein 8.1 g/dL (6.5-8.0)
[2023-05-18 18:32] LABS: Troponin-I High Sensitivity 3.6 ng/L (<3.5-35.0)
[2023-05-18 18:36] LABS: Influenza A PCR NEGATIVE (Negative); Influenza B PCR NEGATIVE (Negative); Resp Syncy Virus RNA Qual PCR NEGATIVE (Negative); SARS COV2 PCR INHOUSE NEGATIVE (Negative)
[2023-05-18 19:21] LABS: Appearance Urine Clear; Color Urine Dark Yellow; Glucose Urine UA Negative (Negative); Leukocyte Esterase Urine Negative (Negative); Nitrite Urine Negative (Negative); Specific Gravity - Urine 1.015 (1.005-1.025); Urine Blood Negative (Negative); Urine Ketones Negative (Negative); Urine Protein Negative (Neg-Trace)
[2023-05-18 21:35] VITALS: BP 143/80; PULSE 98; RESP 18; TEMP 36.8; O2SAT 94
--- NOTE | 2023-05-18 21:40 | PC.NURSE ---
this rn assumed care of pt. pt from home, a&ox4, respirations even and unlabored. pt reporting increasing abdominal pain for one week. pt denies n/v/d. 20G placed in left ac at this time. pt taken to ultrasound at this time.
[2023-05-18] MEDS: iohexoL 350 MG/ML 100 ML INFUS..BTL 85 ML IV (23:55)
[2023-05-19] VITALS (13 sets, daily range): BP systolic 91–168; BP diastolic 59–114; PULSE 75–100; RESP 16–20; TEMP 36.3–38.4; O2SAT 93–98; BMI 29.3
[2023-05-19] MEDS: Morphine Sulfate 2 MG/ML CARTRIDGE 1 MG IVPUSH (01:38)
[2023-05-19] MEDS: 0.9 % Sodium Chloride 1,000 ML 999 ML IVCONT (01:40)
[2023-05-19] MEDS: Piperacillin Sodium/Tazobactam 3.375 GM in 0.9 % Sodium Chloride 50 ML IV ×4 (01:40→20:29)
[2023-05-19] MEDS: Acetaminophen 325 MG TABLET 975 MG PO (01:40)
[2023-05-19 01:50] LABS: Prothrombin Time 12.3 SEC (11.1-13.3)
[2023-05-19 01:52] LABS: Partial Thromboplastin Time 26.4 SEC (26.0-36.8)
[2023-05-19 01:55] LABS: Lactic Acid 1.1 mmol/L (0.5-2.0)
--- NOTE | 2023-05-19 01:58 | PC.NURSE ---
pt meeting sepsis criteria at 0138, this RN addressed sepsis protocol with , made sepsis call at 0154.
--- NOTE | 2023-05-19 02:17 | PM.IMHP ---
History of Present Illness Date of Service: 05/19/23 Attending physician on admission: Delfino Zafar Chief Complaint: Abdominal pain Alex Samuel is a 73 years old man with past medical history significant for essential hypertension and hyperlipidemia presents to the emergency department complaining of epigastric pain that started this morning. Denies associated nausea, vomiting, diarrhea, fever or chills. He also denied any acute urinary symptoms. Denies chest pain or shortness on breath. Last meal was peanut butter sandwich at lunchtime. No jaundice or yellowish sclera. He denied history abdominal surgeries. He drinks alcohol daily -2 light beers do not drink alcohol today. Did not report tobacco smoking or illicit drug use. In the ED, he was found to have temperature of 1.2. There is no tachycardia or hypotension. The and saturation is normal on room air. Blood workup is remarkable for marked leukocytosis, 17.3. Lactic acidosis. Hemoglobin and platelets are normal. There are no electrolyte imbalances. Creatinine is 0.981. LFTs are elevated (elevated direct bilirubin). Lipase is normal. Abdominal pelvis CT scan showed no acute abdominal pathology. There is cholelithiasis without cholecystitis or common bile dilatation. Abdominal and showed tiny gallstones and sludge without acute inflammation denies changes (CBD 0.5 cm). ED tx: Zosyn 3.375 g, acetaminophen 975 mg p.o., morphine 1 mg IV Review of Systems Review of Systems: All 12 systems were reviewed and normal except as noted in HPI. [facility] Medical History (Updated 05/19/23 @ 04:31 by Delfino Zafar MD) IBS (irritable bowel syndrome) Essential hypertension Ascending aortic aneurysm Family History Father Cancer Mother Cancer Surgical History History of lumbar surgery (~2012) Social History Alcohol intake: current Alcohol intake frequency: 0-2 drinks per day Patient Tobacco Use Status: Never used Tobacco Smoked in Last 30 Days: No Use of substances other than those prescribed or required for medical reasons: No Advance Directives: No Advance Directives Information Provided: No Nutrition Risks: No Nutritional Risk Meds Allergies Allergy/AdvReac Type Severity Reaction Status Date / Time No Known Allergies Allergy Verified 05/18/23 16:53 [No Known Allergies*] Active Medications: Current Medications Sodium Chloride (Ns) 1,000 mls @ 100 mls/hr IVCONT .Q10H JASON Piperacillin Sod/Tazobactam (Sod 3.375 gm/ Sodium Chloride) 50 mls @ 100 mls/hr IV ONCE ONE Stop: 05/19/23 09:29 Pantoprazole Sodium (Pantoprazole Sodium 40 Mg/10 Ml Vial) 40 mg IVPUSH DAILY [facility] Sodium Chloride (0.9 % Sodium Chloride Flush 3 Ml Syringe) 3 ml IVFLUSH QSHIFT [facility] Home Medications Medication Instructions Recorded Confirmed Last Taken Type fluoxetine 20 mg capsule 20 mg PO DAILY 01/04/20 05/19/23 Unknown History ibuprofen 800 mg tablet 800 mg PO TID PRN 01/04/20 07/29/22 Unknown History omeprazole 40 mg capsule,delayed 40 mg PO DAILY 01/04/20 05/19/23 Unknown History release pravastatin 10 mg tablet 10 mg PO DAILY 11/08/20 05/19/23 Unknown History amlodipine 5 mg tablet 5 mg PO DAILY 07/25/21 07/29/22 Unknown History amlodipine 5 mg-olmesartan 20 mg 1 tab PO DAILY 05/19/23 05/19/23 Unknown History tablet fluticasone furoate 200 1 ea inhalation DAILY 05/19/23 Unknown History mcg-vilanterol 25 mcg/dose inhalation powder (Breo Ellipta) Physical Exam Vital Signs and Narrative: Vital Signs: Last Vital Signs Temp 101.2 F H 05/19/23 01:46 Pulse 100 05/19/23 01:46 Resp 18 05/19/23 01:46 BP 137/114 H 05/19/23 01:46 Pulse Ox 96 05/19/23 01:46 O2 Del Method Room Air 05/19/23 01:46 BMI result Body Mass Index 29.4 Constitutional - Awake and Alert, No apparent distress. Cooperative. HEENT - Dry oral mucosa. Heart - S1S2, RRR, No edema Lungs - Normal lung expansion, Normal respiratory effort, No respiratory distress, CTA bilaterally Abdomen - Distended; +BS; minimal epigastric tenderness. No rebound or guarding Extremities - no calf tenderness bilaterally, no swelling Musculoskeletal - Normal inspection, normal ROM Skin - Warm/Dry Neurological - Alert & oriented x3. No focal weakness grossly noted. Psychological - Appropriate affect Results Labs 05/18/23 17:27 05/18/23 17:27 Labs: Laboratory Results - last 24 hr 05/18/23 05/18/23 05/18/23 17:27 17:41 19:14 MCV 99.0 H MCH 35.6 H MCHC 35.9 RDW 11.5 Plt Count 339 MPV 9.3 L Immature Gran % (Auto) 0.6 H Neut % (Auto) 86.3 H Lymph % (Auto) 7.5 L [place] % (Auto) 4.3 Eos % (Auto) 0.9 Baso % (Auto) 0.4 Lymph # (Auto) 1.3 [place] # (Auto) 0.7 Eos # (Auto) 0.2 Baso # (Auto) 0.1 Abs Immat Gran (auto) 0.11 H Absolute Neuts (auto) 14.9 H Absolute Nucleated RBC 0.000 Nucleated RBC % (auto) 0.0 PT INR APTT Anion Gap 15 Estim Creat Clear Calc 81.5 Estimated GFR > 60 Random Glucose 145 H Lactic Acid Calcium 9.4 Total Bilirubin 1.6 H Direct Bilirubin 1.1 H AST 127 H ALT 90 H Alkaline Phosphatase 174 H Troponin I High Sens 3.6 Total Protein 8.1 H Albumin 4.5 Lipase 43 Urine Color Dark Yellow Urine Appearance Clear Urine pH 7.0 Ur Specific [place] 1.015 Urine Protein Negative Urine Glucose (UA) Negative Urine Ketones Negative Urine Blood Negative Urine Nitrite Negative Ur Leukocyte Esterase Negative Influenza Type A (PCR) NEGATIVE Influenza Type B (PCR) NEGATIVE RSV RNA Qual (PCR) NEGATIVE SARS-CoV-2 RNA (RT-PCR) NEGATIVE 05/19/23 01:38 MCV MCH MCHC RDW Plt Count MPV Immature Gran % (Auto) Neut % (Auto) Lymph % (Auto) [place] % (Auto) Eos % (Auto) Baso % (Auto) Lymph # (Auto) [place] # (Auto) Eos # (Auto) Baso # (Auto) Abs Immat Gran (auto) Absolute Neuts (auto) Absolute Nucleated RBC Nucleated RBC % (auto) PT 12.3 INR 1.0 APTT 26.4 Anion Gap Estim Creat Clear Calc Estimated GFR Random Glucose Lactic Acid 1.1 Calcium Total Bilirubin Direct Bilirubin AST ALT Alkaline Phosphatase Troponin I High Sens Total Protein Albumin Lipase Urine Color Urine Appearance Urine pH Ur Specific [place] Urine Protein Urine Glucose (UA) Urine Ketones Urine Blood Urine Nitrite Ur Leukocyte Esterase Influenza Type A (PCR) Influenza Type B (PCR) RSV RNA Qual (PCR) SARS-CoV-2 RNA (RT-PCR) Imaging Radiologist's Impressions: Impressions Abdomen Ultrasound 05/18/23 22:05 IMPRESSION: Tiny gallstones and sludge without acute inflammatory changes. Abdomen/Pelvis CT 05/19/23 00:00 IMPRESSION: 1. No acute abnormality CT scan abdomen pelvis. 2. Cholelithiasis. No acute change of the gallbladder. No bile duct dilatation. Fleischner guidelines were followed. Assessment and Plan (1) Acute cholangitis: Status: Acute (2) Essential hypertension: Status: Acute (3) Ascending aortic aneurysm: Qualifiers: Presence of rupture: without rupture Qualified Code(s): I71.21 - Aneurysm of the ascending aorta, without rupture Status: Acute Plan Alex Samuel is a 73 years old man admitted with: Abdominal pain associated with elevated LFTs and fever. Normal lipase. Normal CBD (on abd US and CT scan). Likely acute cholangitis; there is cholelithiasis/sludge (no cholecystitis). Sepsis criteria. No confusion noted. Admit to hospitalist service. Keep NPO. Continue empiric IV antibiotic therapy with Zosyn. Continue IV fluids. Blood cultures obtained -will follow results. Check hepatitis panel. Continue to monitor WBCs and LFTs. Obtain MRCP. GI consult. Hyperlipidemia. Statin on hold due to elevated LFTs. Essential hypertension. Continue amlodipine/olmesartan (or alternative). Alcohol consumption. [facility] protocol. As aortic aneurysm (4.2 cm). Outpatient follow-up, Dr. Gavin Cruz. DVT prophylaxis: SCDs Code status: Full Patient will need hospitalization for at least 2 midnights for acute cholangitis treatment with IV antibiotics and IV fluids and will also need close monitoring of vital signs and blood workup as well as evaluation by subspecialty. Quality Stroke Does the patient have a stroke diagnosis?: No VTE Prior VTE?: No VTE Risk Level:: Medical - moderate - high VTE Device Contraindication: N/A - Device Ordered VTE Drug Contraindication: Treatment Not Indicated
[2023-05-19] MEDS: Melatonin 3 MG TABLET 6 MG PO (02:44)
[2023-05-19] MEDS: 0.9 % Sodium Chloride 1,000 ML 100 ML IVCONT ×3 (02:44→19:21)
--- NOTE | 2023-05-19 03:20 | PC.NURSE ---
provider aware of pt BP, no new orders at this time.
[2023-05-19] MEDS: 0.9 % Sodium Chloride 1,000 ML 999 ML IV (03:42)
--- NOTE | 2023-05-19 03:43 | PC.NURSE ---
provider aware of pt bp, fluid bolus begun at this time.
--- NOTE | 2023-05-19 05:09 | PC.NURSE ---
pt ambulating to bathroom with steady gait at this time, reports need for Bowel Movement.
[2023-05-19 05:17] LABS: MANUAL DIFF FLAG NO
[2023-05-19 05:21] LABS: Basophils Percent Auto 0.4 % (0-2); Eosinophils Absolute Auto 0.1 X10*3/uL (0.0-0.4); Eosinophils Percent Auto 0.8 % (0-4); Hematocrit 33.2 % (42.0-52.0); Hemoglobin 11.8 g/dl (14.0-18.0); Imm Gran Abs Auto 0.04 X10*3/uL (0.00-0.03); Imm Gran Pct Auto 0.4 % (0.0-0.4); Lymphocytes Absolute Auto 1.3 X10*3/uL (1.2-4.9); Lymphocytes Percent Auto 14.8 % (20-40); Mean Corpuscular HGB Conc 35.5 g/dl (31.0-36.0); Mean Corpuscular Hemoglobin 35.3 pg (27.0-33.0); Mean Corpuscular Volume 99.4 fL (80.0-98.0); Mean Platelet Volume 9.4 fL (9.4-12.4); Monocytes Absolute Auto 0.7 X10*3/uL (0.1-1.2); Monocytes Percent Auto 7.8 % (2-11); Neutrophils Absolute Auto 6.9 x10*3/uL (2.0-8.3); Neutrophils Percent Auto 75.8 % (45-73); Platelet Count 263 X10*3/uL (160-400); Red Blood Count 3.34 X10*6/uL (4.60-5.80); Red Cell Distribution Width 11.7 % (11.0-16.0); White Blood Count 9.1 X10*3/uL (4.8-10.8)
[2023-05-19 05:40] LABS: Alanine Aminotransferase 241 U/L (0-40); Albumin Level 3.3 g/dL (3.5-5.0); Alkaline Phosphatase 143 U/L (39-117); Anion Gap 13 (12-20); Aspartate Amino Transferase 219 U/L (5-37); Bilirubin Total 2.5 mg/dL (0.0-1.0); Blood Urea Nitrogen 15 mg/dL (9-16); Calcium 7.8 mg/dL (8.4-10.2); Carbon Dioxide 22 mmol/L (22-29); Chloride 107 mmol/L (96-108); Creatinine Clr Calc Pharmacy 80.7; Estimated Glomerular Filt Rate > 60; Glucose Random 102 mg/dL (60-115); Magnesium 1.7 mg/dL (1.6-2.6); Potassium 3.8 mmol/L (3.3-5.1); Sodium 138 mmol/L (135-145); Total Protein 5.7 g/dL (6.5-8.0)
[2023-05-19 05:58] LABS: HBS Num1 0.12 mIU/mL (0-7.99); HBc Num1 0.18 S/CO (0.00-0.79); Hepatitis B Core Antibody Nonreactive (Nonreactive); Hepatitis B Surface Antigen Negative (Negative); ~Hepatitis B Surface Antibody NONREACTIVE (Nonreactive); ~Hepatitis C Antibody Nonreactive (Nonreactive)
[2023-05-19 06:05] LABS: Hepatitis A Antibody IgM 0.15 Index (0-0.79); ~Hepatitis A Antibody IgM Nonreactive (Nonreactive)
--- NOTE | 2023-05-19 08:24 | PHA.MEDREC ---
Addendum entered by Tiffany Maria [facility] 05/19/23 08:31: Provider aware of amlodipine discrpancy, okay per Dr. Michelle to keep amlodipine/olmesartan. Original Note: Pharmacy Consult ? Medication Reconciliation Pharmacy has completed the medication reconciliation. Confirmed medications with patient and through claim history. Patient reports that he takes Amlodipine and not Amlodipine-olmesartan 5-20 which is in his claim history as being prescribed in Apr. Confirmed with [facility] that a 90 day supply was picked up.
[2023-05-19] MEDS: Pantoprazole Sodium 40 MG/10 ML VIAL IVPUSH (08:25)
[2023-05-19] MEDS: amLODIPine Besylate 5 MG TABLET PO (08:26)
[2023-05-19] MEDS: Valsartan 80 MG TABLET PO (08:26)
[2023-05-19] MEDS: Morphine Sulfate 2 MG/ML CARTRIDGE IVPUSH ×3 (09:06→19:16)
--- NOTE | 2023-05-19 11:07 | PM.GICN ---
History of Present Illness Data of Consult Service Date: 05/19/23 Requesting physician: Theresa Nj Primary Care Provider: ELIZABETH Ahn Reason for consult: Acute cholangitis This is a 73-year-old gentleman with past medical history of ascending aortic aneurysm (4.2 cm on echo 07/2022), hypertension, who presented to the hospital yesterday afternoon for abdominal pain and fevers. Gastroenterology has been consulted for concern of acute cholangitis. Patient reports having dull midepigastric abdominal pain starting after breakfast that progressed by noon time prompting emergency room visit. This was associated with nausea, but no vomiting. T-max 101 degrees. No change in bowel habits. He has not had this severity and character of pain before. On arrival to the emergency room, he was noted to be febrile but hemodynamically stable. Labs were significant for leukocytosis to 17.3 and elevated LFTs. Ultrasound abdomen at that time showed cholelithiasis but with normal CBD caliber. He was admitted for concern of acute cholangitis and started on IV fluids and antibiotics. This morning, patient is afebrile. Bilirubin has increased to 2.5, remaining LFTs are also higher than yest. MRCP is pending. Review of Systems Review of Systems: Yes all other systems are reviewed and are negative [facility] Past Medical History Medical History (Updated 05/19/23 @ 13:39 by Karen Reed MD) IBS (irritable bowel syndrome) Essential hypertension Ascending aortic aneurysm Family History Family History Father Cancer Mother Cancer Surgical History Surgical History History of lumbar surgery (~2012) Social History Social History Household Members: Family Housing: House Do you presently have visiting nurse or other home services: No Alcohol intake: current Alcohol intake frequency: 0-2 drinks per day Patient Tobacco Use Status: Never used Tobacco service: No Meds Allergies Allergy/AdvReac Type Severity Reaction Status Date / Time No Known Allergies Allergy Verified 05/18/23 16:53 [No Known Allergies*] Active Medications: Current Medications Albuterol Sulfate (Albuterol Sulfate 90 Mcg 8 Gm Inhaler) 2 puff INHALE Q6H PRN PRN Reason: wheezing Amlodipine Besylate (Amlodipine Besylate 5 Mg Tablet) 5 mg PO DAILY [facility] Last Admin: 05/19/23 08:26 Dose: 5 mg Cyclobenzaprine HCl (Cyclobenzaprine Hcl 10 Mg Tablet) 10 mg PO BEDTIME PRN PRN Reason: Muscle Spasm Fluoxetine HCl (Fluoxetine Hcl 20 Mg Capsule) 20 mg PO DAILY [facility] Fluticasone/Vilanterol (Fluticasone/Vilanterol 200/25 Blst.W.Dev) 1 puff INHALE DAILY [facility] Hydralazine HCl (Hydralazine Hcl 25 Mg Tablet) 25 mg PO TID [facility]; Protocol Last Admin: 05/19/23 03:31 Dose: Not Given Sodium Chloride (Ns) 1,000 mls @ 100 mls/hr IVCONT .Q10H [facility] Last Admin: 05/19/23 02:44 Dose: 100 mls/hr Ipratropium [place] (Ipratropium [place] Kyle 0.03 % 30 Ml [place]) 2 spray NOSTRIL-B TID PRN PRN Reason: allergies Melatonin (Melatonin 3 Mg Tablet) 6 mg PO BEDTIME PRN PRN Reason: Insomnia Last Admin: 05/19/23 02:44 Dose: 6 mg Morphine Sulfate (Morphine Sulfate 2 Mg/Ml Cartridge) 2 mg IVPUSH Q3H PRN; Protocol PRN Reason: Pain, Severe (Pain Scale 7-10) Last Admin: 05/19/23 09:06 Dose: 2 mg Multivitamins/Vitamin C (Multivitamin Tablet) 1 tab PO DAILY [facility] Omeprazole (Omeprazole 40 Mg Capsule.Dr) 40 mg PO DAILY@0630 [facility] Pantoprazole Sodium (Pantoprazole Sodium 40 Mg/10 Ml Vial) 40 mg IVPUSH DAILY [facility] Last Admin: 05/19/23 08:25 Dose: 40 mg Propranolol HCl (Propranolol Hcl 10 Mg Tablet) 10 mg PO TID [facility]; Protocol Last Admin: 05/19/23 03:31 Dose: Not Given Sodium Chloride (0.9 % Sodium Chloride Flush 3 Ml Syringe) 3 ml IVFLUSH QSHIFT [facility] Last Admin: 05/19/23 08:33 Dose: Not Given Valsartan (Valsartan 80 Mg Tablet) 80 mg PO DAILY [facility] Last Admin: 05/19/23 08:26 Dose: 80 mg Home Medications Medication Instructions Recorded Confirmed Last Taken Type fluoxetine 20 mg capsule 20 mg PO DAILY 01/04/20 05/19/23 05/18/23 History ibuprofen 800 mg tablet 800 mg PO TID PRN Pain 01/04/20 05/19/23 05/18/23 History omeprazole 40 mg capsule,delayed 40 mg PO DAILY 01/04/20 05/19/23 05/18/23 History release pravastatin 10 mg tablet 10 mg PO DAILY 11/08/20 05/19/23 05/18/23 History albuterol sulfate 90 mcg/actuation 2 puff inhalation Q6H PRN wheezing 05/19/23 05/19/23 05/18/23 History aerosol inhaler amlodipine 5 mg-olmesartan 20 mg 1 tab PO DAILY 05/19/23 05/19/23 Unknown History tablet fluticasone furoate 200 1 ea inhalation DAILY 05/19/23 05/19/23 05/18/23 History mcg-vilanterol 25 mcg/dose inhalation powder (Breo Ellipta) ipratropium bromide 21 mcg (0.03 2 spray intranasal TID PRN 05/19/23 05/19/23 05/18/23 History %) nasal spray allergies multivitamin 1 tab PO DAILY 05/19/23 05/19/23 05/18/23 History prasterone (dhea) 50 mg tablet 100 mg PO DAILY 05/19/23 05/19/23 05/18/23 History (DHEA) Physical Exam Vital Signs: Vital Signs: Last Vital Signs Temp 97.3 F 05/19/23 08:33 Pulse 83 05/19/23 08:33 Resp 16 05/19/23 08:33 BP 168/81 H 05/19/23 08:33 Pulse Ox 98 05/19/23 08:33 O2 Del Method Room Air 05/19/23 08:33 BMI result Body Mass Index 29.3 Appears comfortable on bedside assessment No significant icterus appreciated on exam Abdomen soft, mildly distended, mild tenderness without guarding + nonpitting edema in extremities Alert and oriented x3, no focal deficits Results Labs 05/19/23 04:27 05/19/23 04:27 Labs: Short CBC 05/18/23 05/19/23 Range/Units 17:27 04:27 WBC 17.3 H 9.1 (4.8-10.8) X10*3/uL Hgb 14.9 11.8 L D (14.0-18.0) g/dl Hct 41.5 L 33.2 L (42.0-52.0) % Plt Count 339 263 (160-400) X10*3/uL BMP 05/18/23 05/19/23 17:27 04:27 Sodium 137 138 Potassium 4.6 3.8 Chloride 102 107 Carbon Dioxide 25 22 BUN 15 15 Creatinine 0.91 0.92 Calcium 9.4 7.8 L D Liver Function 05/18/23 05/19/23 Range/Units 17:27 04:27 Total Bilirubin 1.6 H 2.5 H (0.0-1.0) mg/dL Direct Bilirubin 1.1 H (0.0-0.5) mg/dL AST 127 H 219 H (5-37) U/L ALT 90 H 241 H (0-40) U/L Alkaline Phosphatase 174 H 143 H (39-117) U/L Albumin 4.5 3.3 L (3.5-5.0) g/dL Urine 05/18/23 Range/Units 19:14 Urine Color Dark Yellow Urine Appearance Clear Urine pH 7.0 (5.0-9.0) Ur Specific [place] 1.015 (1.005-1.025) Urine Protein Negative (Neg-Trace) mg/dL Urine Glucose (UA) Negative (Negative) mg/dL Assessment and Plan (1) Acute cholangitis: Status: Acute (2) Cholelithiasis: Status: Acute Plan High probability of CBD stone given signs of acute cholangitis. Other differentials include acute judy but exam and sonographic appearance not consistent. Plan: - MRCP awaited - Keep pt NPO - Cont IVF and ABx as per sepsis protocol - ERCP contingent on findings on MRI - Non urgent surgical consultation for interval cholecystectomy Thank you for allowing me to participate in his care. Please do not hesitate to reach out for any questions or concerns. Procedures Date of Service Date of Service: 05/19/23
--- NOTE | 2023-05-19 11:55 | MHC.CM.PN ---
pt is independent and working has transport home willnot need servies when dcd
[2023-05-19] MEDS: hydrALAZINE HCl 25 MG TABLET PO ×2 (14:01→20:29)
[2023-05-19] MEDS: Propranolol HCL 10 MG TABLET PO ×2 (14:01→20:29)
--- NOTE | 2023-05-19 14:48 | PM.EVENT ---
Event Note Date of Service: 05/19/23 Event Note: This patient is seen and examined by hopsitalist team earlier this morning, seen and exmaned again. epigastric discomfort seems improved,no fever physical exam: unchanged as h&P excpet abd -no pain ,soft. Physical exam and assessment and plan coordinated inh&P. Agree with the plan in addition: possible choledocholithiasis/cholangitis: LFTs are slightly trending up ,alk-phos somewhat trending down MRCP ordered Blood culture positive for Gram-negative rods Patient was started on Zosyn aboveDiscussed with GI, GI evaluation Time Spent With Patient Time: Total time managing care of this patient today ____ minutes.
--- NOTE | 2023-05-19 14:51 | PC.NURSE ---
+MD JABARI notified.
--- NOTE | 2023-05-19 16:40 | P.CNID_ITS ---
History of Present Illness Data of Consult Service Date: 05/19/23 Requesting physician: Grupo Michelle Primary Care Provider: ELIZABETH Ahn Reason for consult: abdominal pain,bacteremia He presents with 7/10 pain epigastric area suddenly today after eating lunch. He has temperature 101.2 and leukocytosis. He has sludge gallbladder area and no pancreatitis. Review of Systems 2 Review of Systems: Yes all other systems are reviewed and are negative Gastrointestinal: Gastrointestinal: Reports abdominal pain PMFSH Past Medical History Medical History IBS (irritable bowel syndrome) Essential hypertension Ascending aortic aneurysm Family History Family History Father Cancer Mother Cancer Family history: reviewed and not pertinent Surgical History Surgical History History of lumbar surgery (~2012) Social History Social History Household Members: Family Housing: House Do you presently have visiting nurse or other home services: No Alcohol intake: current Alcohol intake frequency: 0-2 drinks per day Patient Tobacco Use Status: Never used Tobacco service: No Meds Allergies Allergy/AdvReac Type Severity Reaction Status Date / Time No Known Allergies Allergy Verified 05/18/23 16:53 [No Known Allergies*] Active Medications: Current Medications Albuterol Sulfate (Albuterol Sulfate 90 Mcg 8 Gm Inhaler) 2 puff INHALE Q6H PRN PRN Reason: wheezing Amlodipine Besylate (Amlodipine Besylate 5 Mg Tablet) 5 mg PO DAILY [facility] Last Admin: 05/19/23 08:26 Dose: 5 mg Cyclobenzaprine HCl (Cyclobenzaprine Hcl 10 Mg Tablet) 10 mg PO BEDTIME PRN PRN Reason: Muscle Spasm Fluoxetine HCl (Fluoxetine Hcl 20 Mg Capsule) 20 mg PO DAILY [facility] Fluticasone/Vilanterol (Fluticasone/Vilanterol 200/25 Blst.W.Dev) 1 puff INHALE DAILY [facility] Hydralazine HCl (Hydralazine Hcl 25 Mg Tablet) 25 mg PO TID [facility]; Protocol Last Admin: 05/19/23 14:01 Dose: 25 mg Sodium Chloride (Ns) 1,000 mls @ 100 mls/hr IVCONT .Q10H [facility] Last Admin: 05/19/23 14:01 Dose: 100 mls/hr Piperacillin Sod/Tazobactam (Sod 3.375 gm/ Sodium Chloride) 50 mls @ 100 mls/hr IV Q6H [facility] Last Infusion: 05/19/23 15:57 Dose: Infused Ipratropium [place] (Ipratropium [place] Kyle 0.03 % 30 Ml [place]) 2 spray NOSTRIL-B TID PRN PRN Reason: allergies Melatonin (Melatonin 3 Mg Tablet) 6 mg PO BEDTIME PRN PRN Reason: Insomnia Last Admin: 05/19/23 02:44 Dose: 6 mg Morphine Sulfate (Morphine Sulfate 2 Mg/Ml Cartridge) 2 mg IVPUSH Q3H PRN; Protocol PRN Reason: Pain, Severe (Pain Scale 7-10) Last Admin: 05/19/23 14:04 Dose: 2 mg Multivitamins/Vitamin C (Multivitamin Tablet) 1 tab PO DAILY [facility] Omeprazole (Omeprazole 40 Mg Capsule.Dr) 40 mg PO DAILY@0630 [facility] Pantoprazole Sodium (Pantoprazole Sodium 40 Mg/10 Ml Vial) 40 mg IVPUSH DAILY [facility] Last Admin: 05/19/23 08:25 Dose: 40 mg Propranolol HCl (Propranolol Hcl 10 Mg Tablet) 10 mg PO TID [facility]; Protocol Last Admin: 05/19/23 14:01 Dose: 10 mg Sodium Chloride (0.9 % Sodium Chloride Flush 3 Ml Syringe) 3 ml IVFLUSH QSHIFT [facility] Last Admin: 05/19/23 08:33 Dose: Not Given Valsartan (Valsartan 80 Mg Tablet) 80 mg PO DAILY [facility] Last Admin: 05/19/23 08:26 Dose: 80 mg Home Medications Medication Instructions Recorded Confirmed Last Taken Type fluoxetine 20 mg capsule 20 mg PO DAILY 01/04/20 05/19/23 05/18/23 History ibuprofen 800 mg tablet 800 mg PO TID PRN Pain 01/04/20 05/19/23 05/18/23 History omeprazole 40 mg capsule,delayed 40 mg PO DAILY 01/04/20 05/19/23 05/18/23 History release pravastatin 10 mg tablet 10 mg PO DAILY 11/08/20 05/19/23 05/18/23 History albuterol sulfate 90 mcg/actuation 2 puff inhalation Q6H PRN wheezing 05/19/23 05/19/23 05/18/23 History aerosol inhaler amlodipine 5 mg-olmesartan 20 mg 1 tab PO DAILY 05/19/23 05/19/23 Unknown History tablet fluticasone furoate 200 1 ea inhalation DAILY 05/19/23 05/19/23 05/18/23 History mcg-vilanterol 25 mcg/dose inhalation powder (Breo Ellipta) ipratropium bromide 21 mcg (0.03 2 spray intranasal TID PRN 05/19/23 05/19/23 05/18/23 History %) nasal spray allergies multivitamin 1 tab PO DAILY 05/19/23 05/19/23 05/18/23 History prasterone (dhea) 50 mg tablet 100 mg PO DAILY 05/19/23 05/19/23 05/18/23 History (DHEA) Physical Exam 2 Vital Signs: Vital Signs: Last Vital Signs Temp 98.2 F 05/19/23 15:13 Pulse 75 05/19/23 15:13 Resp 18 05/19/23 15:13 BP 130/80 05/19/23 15:13 Pulse Ox 93 05/19/23 15:13 O2 Del Method Room Air 05/19/23 15:13 BMI result Body Mass Index 29.3 Const: General: cooperative HEENT: Head: Yes normal to inspection Face and sinus: Yes normal facial exam Mouth: Normal oral and palatal mucosa present Teeth and gingiva: d entition normal Eyes: General: appearance normal, both eyes and all related structures P upils: Equal, round and reactive pupils present Resp: Effort & Inspection: normal respiratory effort Cardio: Rate: regular rate Rhythm: regular rhythm GI: Other: mild epigastric pain Palpation (GI): Soft to palpation and nontender : General: Yes no CVA tenderness Back/Spine/Pelvis: Back: no CVA tenderness Skin: General skin exam: no rashes or lesions noted Neuro: General: moves all extremities Cranial nerves: Yes Equal, round and reactive pupils present Extrem: General: Yes normal to inspection Psych: Appearance: grossly normal Results Labs 05/19/23 04:27 05/19/23 04:27 Labs: Short CBC 05/18/23 05/19/23 Range/Units 17:27 04:27 WBC 17.3 H 9.1 (4.8-10.8) X10*3/uL Hgb 14.9 11.8 L D (14.0-18.0) g/dl Hct 41.5 L 33.2 L (42.0-52.0) % Plt Count 339 263 (160-400) X10*3/uL BMP 05/18/23 05/19/23 17:27 04:27 Sodium 137 138 Potassium 4.6 3.8 Chloride 102 107 Carbon Dioxide 25 22 BUN 15 15 Creatinine 0.91 0.92 Calcium 9.4 7.8 L D Liver Function 05/18/23 05/19/23 Range/Units 17:27 04:27 Total Bilirubin 1.6 H 2.5 H (0.0-1.0) mg/dL Direct Bilirubin 1.1 H (0.0-0.5) mg/dL AST 127 H 219 H (5-37) U/L ALT 90 H 241 H (0-40) U/L Alkaline Phosphatase 174 H 143 H (39-117) U/L Albumin 4.5 3.3 L (3.5-5.0) g/dL Urine 05/18/23 Range/Units 19:14 Urine Color Dark Yellow Urine Appearance Clear Urine pH 7.0 (5.0-9.0) Ur Specific [place] 1.015 (1.005-1.025) Urine Protein Negative (Neg-Trace) mg/dL Urine Glucose (UA) Negative (Negative) mg/dL Microbiology Microbiology Results: Microbiology 05/19/23 01:34 Blood - Venous Blood Culture - Preliminary Prelim: GNR Gram Stain only 05/19/23 01:38 Blood - Venous Blood Culture - Preliminary Prelim: GNR Gram Stain only Assessment and Plan (1) Cholelithiasis: Status: Acute (2) Acute cholangitis: Status: Acute Plan Sepsis with leukocytosis and temperature. Await further GI intervention if needed. Piperacillin/tazobactam,duration to be determined. Await culture results.
--- NOTE | 2023-05-19 18:20 | PC.NURSE ---
Pt educated about disease process, hand out given.
[2023-05-19] MEDS: Dextrose 5 % and 0.9 % NaCl 1,000 ML 80 ML IVCONT (21:22)
[2023-05-20] VITALS (12 sets, daily range): BP systolic 128–176; BP diastolic 79–109; PULSE 75–92; RESP 12–18; TEMP 36.3–37.4; O2SAT 90–97
[2023-05-20] MEDS: Cyclobenzaprine HCl 10 MG TABLET PO (02:48)
[2023-05-20] MEDS: Piperacillin Sodium/Tazobactam 3.375 GM in 0.9 % Sodium Chloride 50 ML IV ×4 (02:55→21:43)
[2023-05-20 07:03] LABS: Hematocrit 36.4 % (42.0-52.0); Mean Corpuscular HGB Conc 35.7 g/dl (31.0-36.0); Mean Corpuscular Volume 98.1 fL (80.0-98.0); Mean Platelet Volume 9.6 fL (9.4-12.4); Platelet Count 248 X10*3/uL (160-400); Red Blood Count 3.71 X10*6/uL (4.60-5.80); Red Cell Distribution Width 11.7 % (11.0-16.0)
[2023-05-20 07:16] LABS: Alanine Aminotransferase 177 U/L (0-40); Albumin Level 3.5 g/dL (3.5-5.0); Alkaline Phosphatase 154 U/L (39-117); Anion Gap 11 (12-20); Aspartate Amino Transferase 81 U/L (5-37); Bilirubin Total 1.3 mg/dL (0.0-1.0); Blood Urea Nitrogen 10 mg/dL (9-16); Calcium 8.4 mg/dL (8.4-10.2); Carbon Dioxide 22 mmol/L (22-29); Chloride 108 mmol/L (96-108); Creatinine Clr Calc Pharmacy 88.2; Estimated Glomerular Filt Rate > 60; Glucose Random 95 mg/dL (60-115); Potassium 3.8 mmol/L (3.3-5.1); Sodium 137 mmol/L (135-145); Total Protein 6.4 g/dL (6.5-8.0)
[2023-05-20] MEDS: Fluticasone/Vilanterol 200/25 BLST.W.DEV 1 PUFF INHALE (07:41)
--- NOTE | 2023-05-20 08:12 | PM.CNGS ---
History of Present Illness Consult details Consult date: 05/20/23 Reason for consult: gallstones Narrative: Alex Samuel is a 73 years old man with PMH significant for essential hypertension and hyperlipidemia who presented to the emergency department complaining of epigastric pain. The pain started the morning of presentation. It was sharp and constant in nature. He was febrile to 101.2 in the ED and work up was significant for a leukocytosis of 17.3 and lactic acidosis with AST/ALT 127/90 and direct/indirect bili of 1.6/1.1 which increased to 2.5. CT scan abd/pelvis and ABD US showed cholelithiasis without signs of cholecystitis or common bile dilatation. He was admitted to the medical service for further treatment. An MRCP was obtained which showed no intraductal filling defects and a hydropic gallbladder with gallstones, gallbladder wall thickening. General surgery consult was therefore obtained. This morning he reports some RUQ discomfort but improved. He denies previous episodes of similar pain. Denies associated nausea, vomiting, diarrhea, chills, back pain, changes in skin color. Review of Systems Constitutional: Constitutional: Denies chills ENT: Denies dizziness Cardiovascular: Cardiovascular: Denies chest pain and Denies dyspnea Respiratory: Respiratory: Denies dyspnea Gastrointestinal: Gastrointestinal: Reports as per HPI Genitourinary: Genitourinary: Denies dysuria Integumentary/Breasts: Skin/Breast: Denies rash and Denies jaundice Neurologic: Denies dizziness PMFSH Past Medical History Medical History IBS (irritable bowel syndrome) Essential hypertension Ascending aortic aneurysm Family History Family History Father Cancer Mother Cancer Family history: reviewed and not pertinent Surgical History Surgical History History of lumbar surgery (~2012) Social History Social History Household Members: Family Housing: House Do you presently have visiting nurse or other home services: No Alcohol intake: current Alcohol intake frequency: 0-2 drinks per day Patient Tobacco Use Status: Never used Tobacco service: No Meds Allergies Allergy/AdvReac Type Severity Reaction Status Date / Time No Known Allergies Allergy Verified 05/18/23 16:53 [No Known Allergies*] Active Medications: Current Medications Albuterol Sulfate (Albuterol Sulfate 90 Mcg 8 Gm Inhaler) 2 puff INHALE Q6H PRN PRN Reason: wheezing Amlodipine Besylate (Amlodipine Besylate 5 Mg Tablet) 5 mg PO DAILY [facility] Last Admin: 05/19/23 08:26 Dose: 5 mg Cyclobenzaprine HCl (Cyclobenzaprine Hcl 10 Mg Tablet) 10 mg PO BEDTIME PRN PRN Reason: Muscle Spasm Last Admin: 05/20/23 02:48 Dose: 10 mg Fluoxetine HCl (Fluoxetine Hcl 20 Mg Capsule) 20 mg PO DAILY [facility] Fluticasone/Vilanterol (Fluticasone/Vilanterol 200/25 Blst.W.Dev) 1 puff INHALE DAILY [facility] Last Admin: 05/20/23 07:41 Dose: 1 puff Hydralazine HCl (Hydralazine Hcl 25 Mg Tablet) 25 mg PO TID [facility]; Protocol Last Admin: 05/19/23 20:29 Dose: 25 mg Piperacillin Sod/Tazobactam (Sod 3.375 gm/ Sodium Chloride) 50 mls @ 100 mls/hr IV Q6H [facility] Last Infusion: 05/20/23 03:29 Dose: Infused Dextrose/Sodium Chloride (D5ns) 1,000 mls @ 80 mls/hr IVCONT .[id number] [facility] Last Admin: 05/19/23 21:22 Dose: 80 mls/hr Ipratropium [place] (Ipratropium [place] 0.03 % 30 Ml [place]) 2 spray NOSTRIL-B TID PRN PRN Reason: allergies Melatonin (Melatonin 3 Mg Tablet) 6 mg PO BEDTIME PRN PRN Reason: Insomnia Last Admin: 05/19/23 02:44 Dose: 6 mg Morphine Sulfate (Morphine Sulfate 2 Mg/Ml Cartridge) 2 mg IVPUSH Q3H PRN; Protocol PRN Reason: Pain, Severe (Pain Scale 7-10) Last Admin: 05/19/23 19:16 Dose: 2 mg Multivitamins/Vitamin C (Multivitamin Tablet) 1 tab PO DAILY [facility] Omeprazole (Omeprazole 40 Mg Capsule.Dr) 40 mg PO DAILY@0630 [facility] Last Admin: 05/20/23 05:37 Dose: Not Given Pantoprazole Sodium (Pantoprazole Sodium 40 Mg/10 Ml Vial) 40 mg IVPUSH DAILY [facility] Last Admin: 05/19/23 08:25 Dose: 40 mg Propranolol HCl (Propranolol Hcl 10 Mg Tablet) 10 mg PO TID [facility]; Protocol Last Admin: 05/19/23 20:29 Dose: 10 mg Sodium Chloride (0.9 % Sodium Chloride Flush 3 Ml Syringe) 3 ml IVFLUSH QSHIFT [facility] Last Admin: 05/20/23 00:39 Dose: Not Given Valsartan (Valsartan 80 Mg Tablet) 80 mg PO DAILY [facility] Last Admin: 05/19/23 08:26 Dose: 80 mg Home Medications Medication Instructions Recorded Confirmed Last Taken Type fluoxetine 20 mg capsule 20 mg PO DAILY 01/04/20 05/19/23 05/18/23 History ibuprofen 800 mg tablet 800 mg PO TID PRN Pain 01/04/20 05/19/23 05/18/23 History omeprazole 40 mg capsule,delayed 40 mg PO DAILY 01/04/20 05/19/23 05/18/23 History release pravastatin 10 mg tablet 10 mg PO DAILY 11/08/20 05/19/23 05/18/23 History albuterol sulfate 90 mcg/actuation 2 puff inhalation Q6H PRN wheezing 05/19/23 05/19/23 05/18/23 History aerosol inhaler amlodipine 5 mg-olmesartan 20 mg 1 tab PO DAILY 05/19/23 05/19/23 Unknown History tablet fluticasone furoate 200 1 ea inhalation DAILY 05/19/23 05/19/23 05/18/23 History mcg-vilanterol 25 mcg/dose inhalation powder (Breo Ellipta) ipratropium bromide 21 mcg (0.03 2 spray intranasal TID PRN 05/19/23 05/19/23 05/18/23 History %) nasal spray allergies multivitamin 1 tab PO DAILY 05/19/23 05/19/23 05/18/23 History prasterone (dhea) 50 mg tablet 100 mg PO DAILY 05/19/23 05/19/23 05/18/23 History (DHEA) Physical Exam Vital Signs: Vital Signs: Last Vital Signs Temp 98.6 F 05/20/23 07:17 Pulse 81 05/20/23 07:41 Resp 18 05/20/23 07:41 BP 162/81 H 05/20/23 07:17 Pulse Ox 94 05/20/23 07:17 O2 Del Method Room Air 05/20/23 07:17 BMI result Body Mass Index 29.3 Const: General: comfortable, no acute distress and alert Orientation/consciousness: patient oriented x3 Eyes: Sclerae: sclerae normal Neck: Neck: Yes no JVD Resp: Effort & Inspection: normal respiratory effort Cardio: Rate: regular rate GI: Other: protuberant abd Inspection: No distended and Yes visible herniation (umbilical, soft, reducible) Palpation (GI): Soft to palpation, Tenderness to palpation present (GI) in the epigastrum and in the RUQ; Stephens's sign negative, no guarding and not rigid Percussion: Yes normal to percussion Skin: General skin exam: no rashes or lesions noted and no jaundice Neuro: General: patient oriented x3 and moves all extremities Results Labs 05/20/23 05:59 05/20/23 05:59 Labs: Abnormal lab results 05/20/23 Range/Units 05:59 RBC 3.71 L (4.60-5.80) X10*6/uL Hgb 13.0 L (14.0-18.0) g/dl Hct 36.4 L (42.0-52.0) % MCV 98.1 H (80.0-98.0) fL MCH 35.0 H (27.0-33.0) pg Anion Gap 11 L (12-20) Total Bilirubin 1.3 H (0.0-1.0) mg/dL AST 81 H (5-37) U/L ALT 177 H (0-40) U/L Alkaline Phosphatase 154 H (39-117) U/L Total Protein 6.4 L (6.5-8.0) g/dL Short CBC 05/20/23 Range/Units 05:59 WBC 7.0 (4.8-10.8) X10*3/uL Hgb 13.0 L (14.0-18.0) g/dl Hct 36.4 L (42.0-52.0) % Plt Count 248 (160-400) X10*3/uL BMP 05/20/23 05:59 Sodium 137 Potassium 3.8 Chloride 108 Carbon Dioxide 22 BUN 10 Creatinine 0.84 Calcium 8.4 D Liver Function 05/20/23 Range/Units 05:59 Total Bilirubin 1.3 H (0.0-1.0) mg/dL AST 81 H (5-37) U/L ALT 177 H (0-40) U/L Alkaline Phosphatase 154 H (39-117) U/L Albumin 3.5 (3.5-5.0) g/dL Urine 05/18/23 Range/Units 19:14 Urine Color Dark Yellow Urine Appearance Clear Urine pH 7.0 (5.0-9.0) Ur Specific [place] 1.015 (1.005-1.025) Urine Protein Negative (Neg-Trace) mg/dL Urine Glucose (UA) Negative (Negative) mg/dL All other labs normal. Imaging Abdomen CT scan report/results: report reviewed and image reviewed Assessment and Plan (1) Cholelithiasis: Status: Acute Plan 73 year old male with PMH significant for HTN, hyperlipidemia who presented to the ED with c/o acute onset epigastric abd pain with leukocytosis, elevated LFTs found to have gallstones on imaging. ABD MRI shows gallstones, gallbladder wall thickening without any intraductal filing defect. GNR bacteremia on blood cultures. Picture consistent with acute cholecystitis, choledocolithiasis possible cholangitis with likely passed stone. LFTs have improved this morning. Discussed proceeding with laparoscopic cholecystectomy possible open possible IOC for treatment of the acute cholecystitis and to prevent recurrence. Risks, benefits, alternatives of laparoscopic possible open cholecystectomy were reviewed with the patient including but not limited to bleeding, infection, numbness, pain, poor healing, injury to the liver, bowel or bile ducts, leak, retained stones and the patient wishes to proceed.? Arrangements will be made for this.?All questions were answered. Discussed with GI. May perform ERCP tomorrow depending IOC findings. Procedures Date of Service Date of Service: 05/20/23
[2023-05-20] MEDS: Pantoprazole Sodium 40 MG/10 ML VIAL IVPUSH (08:57)
[2023-05-20] MEDS: Dextrose 5 % and 0.9 % NaCl 1,000 ML 80 ML IVCONT ×2 (09:00→21:45)
--- NOTE | 2023-05-20 09:39 | PC.NURSE ---
Report called to Nidia in [facility] pt planned for OR sometime after 1300
--- NOTE | 2023-05-20 11:43 | P.PNIM_ITS ---
Subjective Subjective Date of Service: 05/20/23 Interval History: follow-up cholangitis/cholecystitis and Gram-negative brandon bacteremia. No pain this morning, no fever Physical Exam 2 Vital Signs: Vital Signs: Last Vital Signs Temp 98.6 F 05/20/23 07:17 Pulse 81 05/20/23 07:41 Resp 18 05/20/23 07:41 BP 162/81 H 05/20/23 07:17 Pulse Ox 94 05/20/23 07:17 O2 Del Method Room Air 05/20/23 07:17 BMI result Body Mass Index 29.3 General: AO X 3, no acute distress Resp: CTA bilateral CVS: S1,S2,RRR GI: +BS, mld ruq tenderness, no distention Skin: No rash Neuro: motor grossly intact Psych: appropriate affect Objective Data Active Medications Albuterol Sulfate (Albuterol Sulfate 90 Mcg 8 Gm Inhaler) 2 puff INHALE Q6H PRN PRN Reason: wheezing Amlodipine Besylate (Amlodipine Besylate 5 Mg Tablet) 5 mg PO DAILY [facility] Last Admin: 05/19/23 08:26 Dose: 5 mg Documented By: VALENTINA Cyclobenzaprine HCl (Cyclobenzaprine Hcl 10 Mg Tablet) 10 mg PO BEDTIME PRN PRN Reason: Muscle Spasm Last Admin: 05/20/23 02:48 Dose: 10 mg Documented By: SHYLA Fluoxetine HCl (Fluoxetine Hcl 20 Mg Capsule) 20 mg PO DAILY [facility] Fluticasone/Vilanterol (Fluticasone/Vilanterol 200/25 Blst.W.Dev) 1 puff INHALE DAILY [facility] Last Admin: 05/20/23 07:41 Dose: 1 puff Documented By: AMADA Hydralazine HCl (Hydralazine Hcl 25 Mg Tablet) 25 mg PO TID [facility]; Protocol Last Admin: 05/19/23 20:29 Dose: 25 mg Documented By: SHYLA Piperacillin Sod/Tazobactam (Sod 3.375 gm/ Sodium Chloride) 50 mls @ 100 mls/hr IV Q6H [facility] Last Infusion: 05/20/23 09:35 Dose: Infused Documented By: GRAHAMINNM Dextrose/Sodium Chloride (D5ns) 1,000 mls @ 80 mls/hr IVCONT .[id number] [facility] Last Admin: 05/20/23 09:00 Dose: 80 mls/hr Documented By: FANNY Ipratropium [place] (Ipratropium [place] 0.03 % 30 Ml [place]) 2 spray NOSTRIL-B TID PRN PRN Reason: allergies Melatonin (Melatonin 3 Mg Tablet) 6 mg PO BEDTIME PRN PRN Reason: Insomnia Last Admin: 05/19/23 02:44 Dose: 6 mg Documented By: TAMIKO Morphine Sulfate (Morphine Sulfate 2 Mg/Ml Cartridge) 2 mg IVPUSH Q3H PRN; Protocol PRN Reason: Pain, Severe (Pain Scale 7-10) Last Admin: 05/19/23 19:16 Dose: 2 mg Documented By: SHYLA Multivitamins/Vitamin C (Multivitamin Tablet) 1 tab PO DAILY [facility] Omeprazole (Omeprazole 40 Mg Capsule.Dr) 40 mg PO DAILY@0630 [facility] Last Admin: 05/20/23 05:37 Dose: Not Given Documented By: SHYLA Non-Admin Reason: NPO Pantoprazole Sodium (Pantoprazole Sodium 40 Mg/10 Ml Vial) 40 mg IVPUSH DAILY [facility] Last Admin: 05/20/23 08:57 Dose: 40 mg Documented By: FANNY Propranolol HCl (Propranolol Hcl 10 Mg Tablet) 10 mg PO TID [facility]; Protocol Last Admin: 05/19/23 20:29 Dose: 10 mg Documented By: SHYLA Sodium Chloride (0.9 % Sodium Chloride Flush 3 Ml Syringe) 3 ml IVFLUSH QSHIFT [facility] Last Admin: 05/20/23 08:57 Dose: Not Given Documented By: FANNY Non-Admin Reason: IV Running Valsartan (Valsartan 80 Mg Tablet) 80 mg PO DAILY [facility] Last Admin: 05/19/23 08:26 Dose: 80 mg Documented By: VALENTINA Labs 05/20/23 05:59 05/20/23 05:59 Labs: Laboratory Results - last 24 hr 05/20/23 05:59 MCV 98.1 H MCH 35.0 H MCHC 35.7 RDW 11.7 Plt Count 248 MPV 9.6 Absolute Nucleated RBC 0.000 Nucleated RBC % (auto) 0.0 Anion Gap 11 L Estim Creat Clear Calc 88.2 Estimated GFR > 60 Random Glucose 95 Calcium 8.4 D Total Bilirubin 1.3 H AST 81 H ALT 177 H Alkaline Phosphatase 154 H Total Protein 6.4 L Albumin 3.5 Microbiology Microbiology Results: Microbiology 05/19/23 01:34 Blood Culture - Preliminary Blood - Venous Gram negative brandon 05/19/23 01:38 Blood Culture - Preliminary Blood - Venous Gram negative brandon Assessment and Plan (1) Cholelithiasis: Status: Acute (2) Acute cholangitis: Status: Acute Plan 73 years old man admitted with: Sepsis d/t acute cholecystitis/cholangitis, gram negative brandon bacteremia Choledocholithiasis -Continue Zosyn -Cholecystectomy today and may need ERCP by GI depending on IOC Hyperlipidemia. Statin on hold due to elevated LFTs. HTN Continue amlodipine/olmesartan (or alternative). Alcohol consumption. No sings of withdrawal, CIWA protocol. As aortic aneurysm (4.2 cm). Outpatient follow-up, Dr. Stover DVT prophylaxis: SCDs, heparin after surgery Code status: Full need for inpatient: Acute cholangitis/cholecystitis/bacteremia needing IV antibiotics, surgery and close monitoring. Quality Stroke Does the patient have a stroke diagnosis?: No VTE Prior VTE?: No VTE Risk Level:: Medical - moderate - high VTE Device Contraindication: N/A - Device Ordered VTE Drug Contraindication: Treatment Not Indicated
--- NOTE | 2023-05-20 13:22 | PC.NURSE ---
Pt to the OR voided before going
--- NOTE | 2023-05-20 13:25 | P.CONAN_ITS ---
[facility] Active Problems Active Problems: All Active Problems (Updated 05/19/23 @ 13:39 by Karen Reed MD) Cholelithiasis (Acute) Acute cholangitis (Acute) Essential hypertension (Acute) Ascending aortic aneurysm (Acute) Fatigue (Acute) Mass in the abdomen (Acute) Past Medical History Medical History (Updated 05/20/23 @ 13:25 by Martha Jaramillo, RN) Hx of gastroesophageal reflux (GERD) History of high cholesterol IBS (irritable bowel syndrome) Essential hypertension Ascending aortic aneurysm Family History Family History Father Cancer Mother Cancer Family history of problems with anesthesia: No Surgical History Surgical History (Updated 05/20/23 @ 13:26 by Martha Jaramillo, RN) Hx of colonoscopy History of lumbar surgery (~2012) History of Problems with Anesthesia: No Social History Social History Household Members: Family Housing: House Do you presently have visiting nurse or other home services: No Alcohol intake: current Alcohol intake frequency: 0-2 drinks per day Patient Tobacco Use Status: Never used Tobacco service: No Meds Allergies Allergy/AdvReac Type Severity Reaction Status Date / Time No Known Allergies Allergy Verified 05/18/23 16:53 [No Known Allergies*] Active Medications: Current Medications Albuterol Sulfate (Albuterol Sulfate 90 Mcg 8 Gm Inhaler) 2 puff INHALE Q6H PRN PRN Reason: wheezing Amlodipine Besylate (Amlodipine Besylate 5 Mg Tablet) 5 mg PO DAILY [facility] Last Admin: 05/19/23 08:26 Dose: 5 mg Cyclobenzaprine HCl (Cyclobenzaprine Hcl 10 Mg Tablet) 10 mg PO BEDTIME PRN PRN Reason: Muscle Spasm Last Admin: 05/20/23 02:48 Dose: 10 mg Fluoxetine HCl (Fluoxetine Hcl 20 Mg Capsule) 20 mg PO DAILY [facility] Fluticasone/Vilanterol (Fluticasone/Vilanterol 200/25 Blst.W.Dev) 1 puff INHALE DAILY [facility] Last Admin: 05/20/23 07:41 Dose: 1 puff Hydralazine HCl (Hydralazine Hcl 25 Mg Tablet) 25 mg PO TID [facility]; Protocol Last Admin: 05/19/23 20:29 Dose: 25 mg Piperacillin Sod/Tazobactam (Sod 3.375 gm/ Sodium Chloride) 50 mls @ 100 mls/hr IV Q6H [facility] Last Infusion: 05/20/23 09:35 Dose: Infused Dextrose/Sodium Chloride (D5ns) 1,000 mls @ 80 mls/hr IVCONT .[id number] [facility] Last Admin: 05/20/23 09:00 Dose: 80 mls/hr Ipratropium [place] (Ipratropium [place] Kyle 0.03 % 30 Ml [place]) 2 spray NOSTRIL-B TID PRN PRN Reason: allergies Melatonin (Melatonin 3 Mg Tablet) 6 mg PO BEDTIME PRN PRN Reason: Insomnia Last Admin: 05/19/23 02:44 Dose: 6 mg Morphine Sulfate (Morphine Sulfate 2 Mg/Ml Cartridge) 2 mg IVPUSH Q3H PRN; Protocol PRN Reason: Pain, Severe (Pain Scale 7-10) Last Admin: 05/19/23 19:16 Dose: 2 mg Multivitamins/Vitamin C (Multivitamin Tablet) 1 tab PO DAILY [facility] Omeprazole (Omeprazole 40 Mg Capsule.Dr) 40 mg PO DAILY@0630 [facility] Last Admin: 05/20/23 05:37 Dose: Not Given Pantoprazole Sodium (Pantoprazole Sodium 40 Mg/10 Ml Vial) 40 mg IVPUSH DAILY [facility] Last Admin: 05/20/23 08:57 Dose: 40 mg Propranolol HCl (Propranolol Hcl 10 Mg Tablet) 10 mg PO TID [facility]; Protocol Last Admin: 05/19/23 20:29 Dose: 10 mg Sodium Chloride (0.9 % Sodium Chloride Flush 3 Ml Syringe) 3 ml IVFLUSH QSHIFT [facility] Last Admin: 05/20/23 08:57 Dose: Not Given Valsartan (Valsartan 80 Mg Tablet) 80 mg PO DAILY [facility] Last Admin: 05/19/23 08:26 Dose: 80 mg Home Medications Medication Instructions Recorded Confirmed Last Taken Type fluoxetine 20 mg capsule 20 mg PO DAILY 01/04/20 05/19/23 05/18/23 History ibuprofen 800 mg tablet 800 mg PO TID PRN Pain 01/04/20 05/19/23 05/18/23 History omeprazole 40 mg capsule,delayed 40 mg PO DAILY 01/04/20 05/19/23 05/18/23 History release pravastatin 10 mg tablet 10 mg PO DAILY 11/08/20 05/19/23 05/18/23 History albuterol sulfate 90 mcg/actuation 2 puff inhalation Q6H PRN wheezing 05/19/23 05/19/23 05/18/23 History aerosol inhaler amlodipine 5 mg-olmesartan 20 mg 1 tab PO DAILY 05/19/23 05/19/23 Unknown History tablet fluticasone furoate 200 1 ea inhalation DAILY 05/19/23 05/19/23 05/18/23 History mcg-vilanterol 25 mcg/dose inhalation powder (Breo Ellipta) ipratropium bromide 21 mcg (0.03 2 spray intranasal TID PRN 05/19/23 05/19/23 05/18/23 History %) nasal spray allergies multivitamin 1 tab PO DAILY 05/19/23 05/19/23 05/18/23 History prasterone (dhea) 50 mg tablet 100 mg PO DAILY 05/19/23 05/19/23 05/18/23 History (DHEA) Exam Height,Weight and Vital Signs: Height 5 ft 10 in Weight 92.7 kg Last Vital Signs Temp 98.6 F 05/20/23 07:17 Pulse 81 05/20/23 07:41 Resp 18 05/20/23 07:41 BP 162/81 H 05/20/23 07:17 Pulse Ox 94 05/20/23 07:17 O2 Del Method Room Air 05/20/23 07:17 Pertinent Lab Results Pertinent Lab Results: Laboratory Tests 05/18/23 05/18/23 05/18/23 17:27 17:41 19:14 WBC 17.3 H RBC 4.19 L Hgb 14.9 Hct 41.5 L MCV 99.0 H MCH 35.6 H MCHC 35.9 RDW 11.5 Plt Count 339 MPV 9.3 L Immature Gran % (Auto) 0.6 H Neut % (Auto) 86.3 H Lymph % (Auto) 7.5 L [place] % (Auto) 4.3 Eos % (Auto) 0.9 Baso % (Auto) 0.4 Lymph # (Auto) 1.3 [place] # (Auto) 0.7 Eos # (Auto) 0.2 Baso # (Auto) 0.1 Abs Immat Gran (auto) 0.11 H Absolute Neuts (auto) 14.9 H Absolute Nucleated RBC 0.000 Nucleated RBC % (auto) 0.0 PT INR APTT Sodium 137 Potassium 4.6 Chloride 102 Carbon Dioxide 25 Anion Gap 15 BUN 15 Creatinine 0.91 Estim Creat Clear Calc 81.5 Estimated GFR > 60 Random Glucose 145 H Lactic Acid Calcium 9.4 Magnesium Total Bilirubin 1.6 H Direct Bilirubin 1.1 H AST 127 H ALT 90 H Alkaline Phosphatase 174 H Troponin I High Sens 3.6 Total Protein 8.1 H Albumin 4.5 Lipase 43 Urine Color Dark Yellow Urine Appearance Clear Urine pH 7.0 Ur Specific [place] 1.015 Urine Protein Negative Urine Glucose (UA) Negative Urine Ketones Negative Urine Blood Negative Urine Nitrite Negative Ur Leukocyte Esterase Negative Hepatitis A IgM Ab Hep Bs Antigen Hep Bs Antibody Hep B Core Total Ab Hepatitis C Ab (EIA) Influenza Type A (PCR) NEGATIVE Influenza Type B (PCR) NEGATIVE RSV RNA Qual (PCR) NEGATIVE SARS-CoV-2 RNA (RT-PCR) NEGATIVE 05/19/23 05/19/23 05/20/23 01:38 04:27 05:59 WBC 9.1 7.0 RBC 3.34 L D 3.71 L Hgb 11.8 L D 13.0 L Hct 33.2 L 36.4 L MCV 99.4 H 98.1 H MCH 35.3 H 35.0 H MCHC 35.5 35.7 RDW 11.7 11.7 Plt Count 263 248 MPV 9.4 9.6 Immature Gran % (Auto) 0.4 Neut % (Auto) 75.8 H Lymph % (Auto) 14.8 L [place] % (Auto) 7.8 Eos % (Auto) 0.8 Baso % (Auto) 0.4 Lymph # (Auto) 1.3 [place] # (Auto) 0.7 Eos # (Auto) 0.1 Baso # (Auto) 0.0 Abs Immat Gran (auto) 0.04 H Absolute Neuts (auto) 6.9 Absolute Nucleated RBC 0.000 0.000 Nucleated RBC % (auto) 0.0 0.0 PT 12.3 INR 1.0 APTT 26.4 Sodium 138 137 Potassium 3.8 3.8 Chloride 107 108 Carbon Dioxide 22 22 Anion Gap 13 11 L BUN 15 10 Creatinine 0.92 0.84 Estim Creat Clear Calc 80.7 88.2 Estimated GFR > 60 > 60 Random Glucose 102 95 Lactic Acid 1.1 Calcium 7.8 L D 8.4 D Magnesium 1.7 Total Bilirubin 2.5 H 1.3 H Direct Bilirubin AST 219 H 81 H ALT 241 H 177 H Alkaline Phosphatase 143 H 154 H Troponin I High Sens Total Protein 5.7 L 6.4 L Albumin 3.3 L 3.5 Lipase Urine Color Urine Appearance Urine pH Ur Specific [place] Urine Protein Urine Glucose (UA) Urine Ketones Urine Blood Urine Nitrite Ur Leukocyte Esterase Hepatitis A IgM Ab Nonreactive Hep Bs Antigen Negative Hep Bs Antibody NONREACTIVE Hep B Core Total Ab Nonreactive Hepatitis C Ab (EIA) Nonreactive Influenza Type A (PCR) Influenza Type B (PCR) RSV RNA Qual (PCR) SARS-CoV-2 RNA (RT-PCR) Airway Mallampati Class: III Neck ROM: Full Loose/Missing/Broken Teeth: No Heart: rrr Lungs: cta b/l Assessment and Plan Assessment Anesthesia Assessment: Anesthesia Plan Discussed and Chart Reviewed Final Anesthetic Review Family History of Problems with Anesthesia: No History of Problems with Anesthesia: No NPO: Yes ASA Class: III Final Preanesthetic Review: No Changes in Pt Med Stat, Meds/Allgs Chart Reviewed, Consent Obtained/Reviewed and Anes Risks/Benef Reviewed Patient Risk: Intermediate Procedure Risk: Intermediate Anesthetic Plan Anesthetic Plan: GA Disposition: Standard PACU
[2023-05-20] MEDS: HYDROmorphone HCl 0.5 MG/0.5 ML SYRINGE IVPUSH (15:15)
--- NOTE | 2023-05-20 15:17 | W.PM.OPN ---
Operative Note Operative Note Date of Service: 05/20/23 Narrative: Preoperative diagnosis: [] 1. Acute cholecystitis, rule out common bile duct stone. 2. Incarcerated umbilical hernia measuring approximally 2 cm in size Postop diagnosis: [] The same Procedure [] laparoscopic cholecystectomy with cholangiogram, primary repair of incarcerated umbilical hernia. Surgeon: [] [employer]: [] Nano Type of Anesthesia: [] General Indication for surgery: [] 1 Markedly edematous gallbladder with omental adhesions to it. Intraoperative cholangiogram demonstrated contrast entering the extrahepatic biliary system with a very large common bile duct and what appeared to be in obstruction of the distal common bile duct. Some contrast did trickle into the duodenal. Two. 2 cm incarcerated umbilical hernia with omental contents Findings: [] Patient brought to the operating room, placed on operative table in supine position, after adequate level of general anesthesia was induced, the patient's abdomen was prepped draped in usual sterile fashion. Using a curvilinear incision supraumbilically, this carried down through skin, subcutaneous tissue, where hernia sac was identified and circumferentially dissected down the fascia and opened. Incarcerated omental contents and omentum were amputated and specimen sent to pathology. Barber technique was used to insufflate the abdominal cavity to 15 mm of CO2. Upper midline and right subcostal ports were placed under direct laparoscopic view, the patient placed in reverse Trendelenburg position, and tilted to the left. Gallbladder findings were as noted above. Gallbladder was decompressed secondary to its marked turgidity. Gallbladder was grasped using laparoscopic graspers, and retracted superiorly and laterally. Omental adhesions were swept off the gallbladder where it is hilum was approached. Cystic artery and cystic duct were each identified, circumferentially skeletonized, each traced directly into the gallbladder and critical view obtained. Cystic artery was clipped proximally x2, distally x1, and transected. A clip was placed on the gallbladder side and cystic duct and the cystic duct opened and a cholangiocatheter advanced in the cystic duct and cholangiogram performed with findings as noted above. Cystic duct was then clipped proximally x3 and cystic duct was transected. Gallbladder which was moderately intrahepatic, was then cauterized from the gallbladder fossa using Bovie. Specimen was placed in an Endo-Catch bag, a retrieved through the umbilical port. Abdominal cavity was copiously irrigated, and secured hemostasis. All ports were removed under direct laparoscopic view. Wounds were closed in the following manner; umbilical port which was the site of the hernia was closed primarily using interrupted 0 Vicryl sutures. Skin wounds were closed using subcuticular 4-0 Vicryl sutures followed by Steri-Strips and sterile dressings. Wounds were infiltrated with 0.5% Marcaine at completion. Sponge, needle, and instrument counts reported correct. Patient tolerated the procedure well and emerged from anesthesia stable condition. EBL minimal
[2023-05-20] MEDS: hydrALAZINE HCl 25 MG TABLET PO ×2 (16:38→19:40)
[2023-05-20] MEDS: Propranolol HCL 10 MG TABLET PO ×2 (16:38→19:40)
--- NOTE | 2023-05-20 16:43 | PC.NURSE ---
Pt returned from OR . Abd lap sites x4 CDI , instructed on use of incentive spirometer rotine post op care
[2023-05-20] MEDS: Morphine Sulfate 4 MG/ML CARTRIDGE IVPUSH (16:48)
[2023-05-20] MEDS: oxyCODONE HCl Immed Release 5 MG TABLET PO (18:15)
[2023-05-21] VITALS (13 sets, daily range): BP systolic 101–173; BP diastolic 61–95; PULSE 75–93; RESP 15–19; TEMP 36.1–38.1; O2SAT 91–95
[2023-05-21] MEDS: Morphine Sulfate 4 MG/ML CARTRIDGE IVPUSH ×2 (02:53→12:37)
[2023-05-21] MEDS: Piperacillin Sodium/Tazobactam 3.375 GM in 0.9 % Sodium Chloride 50 ML IV ×2 (02:54→08:13)
[2023-05-21 05:59] LABS: Alanine Aminotransferase 141 U/L (0-40); Albumin Level 3.4 g/dL (3.5-5.0); Alkaline Phosphatase 130 U/L (39-117); Aspartate Amino Transferase 63 U/L (5-37); Bilirubin Direct 0.5 mg/dL (0.0-0.5); Bilirubin Total 0.8 mg/dL (0.0-1.0); Total Protein 6.4 g/dL (6.5-8.0)
[2023-05-21] MEDS: Omeprazole 40 MG CAPSULE.DR PO (06:10)
[2023-05-21] MEDS: oxyCODONE HCl Immed Release 5 MG TABLET PO (06:13)
[2023-05-21] MEDS: Fluticasone/Vilanterol 200/25 BLST.W.DEV 1 PUFF INHALE (08:01)
--- NOTE | 2023-05-21 08:37 | PM.PNGS ---
Subjective Subjective Date of Service: 05/21/23 Interval history: Feels somewhat improved, with mild incisional pain. Tolerated clear liquids last night. Physical Exam Vital Signs: Vital Signs: Last Vital Signs Temp 98.1 F 05/21/23 07:16 Pulse 81 05/21/23 08:02 Resp 16 05/21/23 08:02 BP 101/61 05/21/23 07:16 Pulse Ox 93 05/21/23 07:16 O2 Del Method Room Air 05/21/23 07:16 O2 Flow Rate 2 05/20/23 16:38 BMI result Body Mass Index 29.3 Const: General: comfortable, no acute distress and alert Orientation/consciousness: patient oriented x3 Resp: Effort & Inspection: normal respiratory effort GI: Inspection: No distended and Yes incision (dressings c/d/i) Palpation (GI): Soft to palpation, Tenderness to palpation present (GI) (mild incisional), no guarding and not rigid Percussion: Yes normal to percussion Skin: General skin exam: no rashes or lesions noted and no jaundice Neuro: General: patient oriented x3 and moves all extremities Objective Data Active Medications Albuterol Sulfate (Albuterol Sulfate 90 Mcg 8 Gm Inhaler) 2 puff INHALE Q6H PRN PRN Reason: wheezing Amlodipine Besylate (Amlodipine Besylate 5 Mg Tablet) 5 mg PO DAILY [facility] Last Admin: 05/20/23 16:15 Dose: Not Given Documented By: FANNY Non-Admin Reason: NPO Cyclobenzaprine HCl (Cyclobenzaprine Hcl 10 Mg Tablet) 10 mg PO BEDTIME PRN PRN Reason: Muscle Spasm Last Admin: 05/20/23 02:48 Dose: 10 mg Documented By: JENNYRISBrian Fluoxetine HCl (Fluoxetine Hcl 20 Mg Capsule) 20 mg PO DAILY [facility] Last Admin: 05/20/23 16:15 Dose: Not Given Documented By: FANNY Non-Admin Reason: NPO Fluticasone/Vilanterol (Fluticasone/Vilanterol 200/25 Blst.W.Dev) 1 puff INHALE DAILY [facility] Last Admin: 05/21/23 08:01 Dose: 1 puff Documented By: CRYSTAL Hydralazine HCl (Hydralazine Hcl 25 Mg Tablet) 25 mg PO TID [facility]; Protocol Last Admin: 05/20/23 19:40 Dose: 25 mg Documented By: MALA Comments: Patient requested early. Dr. Jonny leo. Piperacillin Sod/Tazobactam (Sod 3.375 gm/ Sodium Chloride) 50 mls @ 100 mls/hr IV Q6H [facility] Last Admin: 05/21/23 08:13 Dose: 100 mls/hr Documented By: FANNY Dextrose/Sodium Chloride (D5ns) 1,000 mls @ 80 mls/hr IVCONT .[id number] [facility] Last Admin: 05/20/23 21:45 Dose: 80 mls/hr Documented By: MALA Ipratropium [place] (Ipratropium [place] Kyle 0.03 % 30 Ml [place]) 2 spray NOSTRIL-B TID PRN PRN Reason: allergies Melatonin (Melatonin 3 Mg Tablet) 6 mg PO BEDTIME PRN PRN Reason: Insomnia Last Admin: 05/19/23 02:44 Dose: 6 mg Documented By: TAMIKO Morphine Sulfate (Morphine Sulfate 4 Mg/Ml Cartridge) 4 mg IVPUSH Q4H PRN; Protocol PRN Reason: Pain, Severe (Pain Scale 7-10) Last Admin: 05/21/23 02:53 Dose: 4 mg Documented By: GONZALO Multivitamins/Vitamin C (Multivitamin Tablet) 1 tab PO DAILY [facility] Last Admin: 05/20/23 16:15 Dose: Not Given Documented By: FANNY Non-Admin Reason: NPO Omeprazole (Omeprazole 40 Mg Mark.) 40 mg PO DAILY@0630 [facility] Last Admin: 05/21/23 06:10 Dose: 40 mg Documented By: GONZALO Oxycodone HCl (Oxycodone Hcl Immed Release 5 Mg Tablet) 5 mg PO Q4H PRN PRN Reason: Pain, Moderate(Pain Scale 4-6) Last Admin: 05/21/23 06:13 Dose: 5 mg Documented By: GONZALO Pantoprazole Sodium (Pantoprazole Sodium 40 Mg/10 Ml Vial) 40 mg IVPUSH DAILY [facility] Last Admin: 05/20/23 08:57 Dose: 40 mg Documented By: FANNY Propranolol HCl (Propranolol Hcl 10 Mg Tablet) 10 mg PO TID [facility]; Protocol Last Admin: 05/20/23 19:40 Dose: 10 mg Documented By: MALA Comments: Patient requested early. Dr. Jonny leo. Sodium Chloride (0.9 % Sodium Chloride Flush 3 Ml Syringe) 3 ml IVFLUSH QSHIFT [facility] Last Admin: 05/21/23 07:18 Dose: Not Given Documented By: FANNY Non-Admin Reason: IV Running Valsartan (Valsartan 80 Mg Tablet) 80 mg PO DAILY [facility] Last Admin: 05/20/23 16:17 Dose: Not Given Documented By: FANNY Non-Admin Reason: NPO Labs 05/20/23 05:59 05/20/23 05:59 Labs: Laboratory Results - last 24 hr 05/21/23 05:13 Hold Purple Top SEE NOTE Total Bilirubin 0.8 Direct Bilirubin 0.5 AST 63 H ALT 141 H Alkaline Phosphatase 130 H Total Protein 6.4 L Albumin 3.4 L Microbiology Microbiology Results: Microbiology 05/19/23 01:34 Blood Culture - Preliminary Blood - Venous Gram negative brandon 05/19/23 01:38 Blood Culture - Preliminary Blood - Venous Gram negative brandon Procedures Date of Service Date of Service: 05/21/23 Progress Note: A&P Assessment and plan (1) Cholelithiasis: Status: Acute (2) S/P laparoscopic cholecystectomy: Status: Acute Plan POD #1 s/p lap judy with cholangiogram which demonstrated filling defect. Doing well from surgical standpoint. Abd benign with appropriate post op tenderness, dressings c/d/i. Patient NPO this am for ERCP. Time Spent With Patient Time: Total time managing care of this patient today ____ minutes. Quality Stroke Does the patient have a stroke diagnosis?: No VTE Prior VTE?: No VTE Risk Level:: Medical - moderate - high VTE Device Contraindication: N/A - Device Ordered VTE Drug Contraindication: Treatment Not Indicated
--- NOTE | 2023-05-21 09:01 | HO.POSTANES ---
Post Anesthesia Evaluation Post Anesthesia Evaluation Date of Service: 05/21/23 Vital Signs: Vital Signs Temp Pulse Resp BP Pulse Ox O2 Del Method 05/21/23 08:02 81 16 05/21/23 07:16 98.1 F 75 15 101/61 93 Room Air 05/21/23 03:13 98.7 F 82 18 158/75 H 92 Room Air 05/21/23 00:04 97.7 F 80 18 137/76 93 Room Air Anesthesia: General Endotracheal-GETA Mental Status: Awake Pain Control: Satisfactory Nausea/Vomiting: None Hydration: Adequate Anesthesia-Related Issues: No Anes. Related Issues
--- NOTE | 2023-05-21 09:19 | P.PNIM_ITS ---
Subjective Subjective Date of Service: 05/21/23 Interval History: Status post cholecystectomy and found to have a filling defects with IOC, no apparent this morning. Tolerated liquid diet overnight Physical Exam 2 Vital Signs: Vital Signs: Last Vital Signs Temp 98.1 F 05/21/23 07:16 Pulse 81 05/21/23 08:02 Resp 16 05/21/23 08:02 BP 101/61 05/21/23 07:16 Pulse Ox 93 05/21/23 07:16 O2 Del Method Room Air 05/21/23 07:16 O2 Flow Rate 2 05/20/23 16:38 BMI result Body Mass Index 29.3 Const: Other: General: AO X 3, no acute distress Resp: CTA bilateral CVS: S1,S2,RRR GI: +BS, mild tender around incision, no distention Skin: No rash Neuro: motor grossly intact Psych: appropriate affect Objective Data Active Medications Albuterol Sulfate (Albuterol Sulfate 90 Mcg 8 Gm Inhaler) 2 puff INHALE Q6H PRN PRN Reason: wheezing Amlodipine Besylate (Amlodipine Besylate 5 Mg Tablet) 5 mg PO DAILY [facility] Last Admin: 05/20/23 16:15 Dose: Not Given Documented By: FANNY Non-Admin Reason: NPO Cyclobenzaprine HCl (Cyclobenzaprine Hcl 10 Mg Tablet) 10 mg PO BEDTIME PRN PRN Reason: Muscle Spasm Last Admin: 05/20/23 02:48 Dose: 10 mg Documented By: JENNYRISBrian Fluoxetine HCl (Fluoxetine Hcl 20 Mg Capsule) 20 mg PO DAILY [facility] Last Admin: 05/20/23 16:15 Dose: Not Given Documented By: FANNY Non-Admin Reason: NPO Fluticasone/Vilanterol (Fluticasone/Vilanterol 200/25 Blst.W.Dev) 1 puff INHALE DAILY [facility] Last Admin: 05/21/23 08:01 Dose: 1 puff Documented By: CRYSTAL Hydralazine HCl (Hydralazine Hcl 25 Mg Tablet) 25 mg PO TID [facility]; Protocol Last Admin: 05/20/23 19:40 Dose: 25 mg Documented By: MALA Comments: Patient requested early. Dr. Jonny leo. Piperacillin Sod/Tazobactam (Sod 3.375 gm/ Sodium Chloride) 50 mls @ 100 mls/hr IV Q6H [facility] Last Infusion: 05/21/23 08:49 Dose: Infused Documented By: FANNY Dextrose/Sodium Chloride (D5ns) 1,000 mls @ 80 mls/hr IVCONT .[id number] [facility] Last Admin: 05/20/23 21:45 Dose: 80 mls/hr Documented By: MALA Ipratropium [place] (Ipratropium [place] Kyle 0.03 % 30 Ml [place]) 2 spray NOSTRIL-B TID PRN PRN Reason: allergies Melatonin (Melatonin 3 Mg Tablet) 6 mg PO BEDTIME PRN PRN Reason: Insomnia Last Admin: 05/19/23 02:44 Dose: 6 mg Documented By: TAMIKO Morphine Sulfate (Morphine Sulfate 4 Mg/Ml Cartridge) 4 mg IVPUSH Q4H PRN; Protocol PRN Reason: Pain, Severe (Pain Scale 7-10) Last Admin: 05/21/23 02:53 Dose: 4 mg Documented By: GONZALO Multivitamins/Vitamin C (Multivitamin Tablet) 1 tab PO DAILY [facility] Last Admin: 05/20/23 16:15 Dose: Not Given Documented By: FANNY Non-Admin Reason: NPO Omeprazole (Omeprazole 40 Mg Mark.) 40 mg PO DAILY@0630 [facility] Last Admin: 05/21/23 06:10 Dose: 40 mg Documented By: GONZALO Oxycodone HCl (Oxycodone Hcl Immed Release 5 Mg Tablet) 5 mg PO Q4H PRN PRN Reason: Pain, Moderate(Pain Scale 4-6) Last Admin: 05/21/23 06:13 Dose: 5 mg Documented By: GONZALO Pantoprazole Sodium (Pantoprazole Sodium 40 Mg/10 Ml Vial) 40 mg IVPUSH DAILY [facility] Last Admin: 05/20/23 08:57 Dose: 40 mg Documented By: FANNY Propranolol HCl (Propranolol Hcl 10 Mg Tablet) 10 mg PO TID [facility]; Protocol Last Admin: 05/20/23 19:40 Dose: 10 mg Documented By: MALA Comments: Patient requested early. Dr. Jonny leo. Sodium Chloride (0.9 % Sodium Chloride Flush 3 Ml Syringe) 3 ml IVFLUSH QSHIFT [facility] Last Admin: 05/21/23 07:18 Dose: Not Given Documented By: FANNY Non-Admin Reason: IV Running Valsartan (Valsartan 80 Mg Tablet) 80 mg PO DAILY [facility] Last Admin: 05/20/23 16:17 Dose: Not Given Documented By: FANNY Non-Admin Reason: NPO Labs 05/20/23 05:59 05/20/23 05:59 Labs: Laboratory Results - last 24 hr 05/21/23 05:13 Hold Purple Top SEE NOTE Total Bilirubin 0.8 Direct Bilirubin 0.5 AST 63 H ALT 141 H Alkaline Phosphatase 130 H Total Protein 6.4 L Albumin 3.4 L Microbiology Microbiology Results: Microbiology 05/19/23 01:38 Blood Culture - Final Blood - Venous Klebsiella oxytoca 05/19/23 01:34 Blood Culture - Final Blood - Venous Klebsiella oxytoca Assessment and Plan (1) Cholelithiasis: Status: Acute (2) Acute cholangitis: Status: Acute Plan 73 years old man admitted with: Sepsis d/t acute cholecystitis/cholangitis, Klebsiella Oxytosa bacteremia Choledocholithiasis -Change Zosyn to Ceftriaxone and likely PO at discharge -Cholecystectomy done 05/19, and for ERCP today 05/20 Hyperlipidemia. Statin on hold due to elevated LFTs. HTN Continue amlodipine/olmesartan (or alternative). Alcohol consumption. No sings of withdrawal, [place] protocol. As aortic aneurysm (4.2 cm). Outpatient follow-up, Dr. Stover DVT prophylaxis: SCDs, heparin after surgery Code status: Full need for inpatient: Acute cholangitis/cholecystitis/bacteremia needing IV antibiotics, surgery and close monitoring. Quality Stroke Does the patient have a stroke diagnosis?: No VTE Prior VTE?: No VTE Risk Level:: Medical - moderate - high VTE Device Contraindication: N/A - Device Ordered VTE Drug Contraindication: Treatment Not Indicated
[2023-05-21] MEDS: cefTRIAXone sodium 2 GM in 0.9 % Sodium Chloride 50 ML IV (09:39)
[2023-05-21 09:57] LABS: Anion Gap 13 (12-20); Blood Urea Nitrogen 9 mg/dL (9-16); Calcium 8.5 mg/dL (8.4-10.2); Carbon Dioxide 22 mmol/L (22-29); Chloride 103 mmol/L (96-108); Estimated Glomerular Filt Rate > 60; Glucose Random 153 mg/dL (60-115); Potassium 4.2 mmol/L (3.3-5.1); Sodium 134 mmol/L (135-145)
[2023-05-21] MEDS: Pantoprazole Sodium 40 MG/10 ML VIAL IVPUSH (11:13)
[2023-05-21] MEDS: Dextrose 5 % and 0.9 % NaCl 1,000 ML 80 ML IVCONT ×2 (11:14→16:50)
--- NOTE | 2023-05-21 12:14 | PC.NURSE ---
Report called to Nidia in pre op pre ERCP .
--- NOTE | 2023-05-21 14:13 | P.PNGI_ITS ---
Subjective Subjective Date of Service: 05/21/23 Interval History: Doing well no complaints had cholecystectomy yesterday passign gas Critical Care Time (minutes): 0 Physical Exam 2 Vital Signs: Vital Signs: Last Vital Signs Temp 98.1 F 05/21/23 07:16 Pulse 81 05/21/23 08:02 Resp 16 05/21/23 08:02 BP 101/61 05/21/23 07:16 Pulse Ox 93 05/21/23 07:16 O2 Del Method Room Air 05/21/23 07:16 O2 Flow Rate 2 05/20/23 16:38 BMI result Body Mass Index 29.3 EXAM: GENERAL: The patient is well developed and nontoxic. VITAL SIGNS:see workflow HEENT: Nonicteric sclerae, PERRLA, EOMI. Oropharynx clear. Moist mucous membranes. Conjunctivae appear well perfused. No thyroid mass. CHEST: Chest wall is nontender. HEART: Regular rate and rhythm without murmurs. LUNGS: Clear to auscultation bilaterally. ABDOMEN: Soft, positive bowel sounds, nontender, no organomegaly.no flank tenderness SKIN: No rash, no excessive bruising, petechiae, or purpura. NEUROLOGIC: Cranial nerves II-XII intact without motor/sensory deficit. Psych: normal affect Objective Data Labs 05/20/23 05:59 05/21/23 05:13 Labs: Laboratory Results - last 24 hr 05/21/23 05:13 Hold Purple Top SEE NOTE Sodium 134 L Potassium 4.2 Chloride 103 Carbon Dioxide 22 Anion Gap 13 BUN 9 Creatinine 0.95 Estim Creat Clear Calc 78.0 Estimated GFR > 60 Random Glucose 153 H Calcium 8.5 Total Bilirubin 0.8 Direct Bilirubin 0.5 AST 63 H ALT 141 H Alkaline Phosphatase 130 H Total Protein 6.4 L Albumin 3.4 L Microbiology Microbiology Results: Microbiology 05/20/23 08:17 Blood - Venous Blood Culture - Preliminary No growth after 24 hours. 05/20/23 08:17 Blood - Venous Blood Culture - Preliminary No growth after 24 hours. 05/19/23 01:38 Blood - Venous Blood Culture - Final Klebsiella oxytoca 05/19/23 01:34 Blood - Venous Blood Culture - Final Klebsiella oxytoca Procedures Date of Service Date of Service: 05/21/23 Progress Note: A&P Assessment and plan (1) Cholelithiasis: Status: Acute (2) S/P laparoscopic cholecystectomy: Status: Acute Plan 1/ concern for choledocholithiasis, LFT improving PLAN: 1/ ERCP today for further assessment and removal of stone if present, will give LR and indomethacin to reduce risk of pancreatitis Time Spent With Patient Time: Total time managing care of this patient today ____ minutes. Quality Stroke Does the patient have a stroke diagnosis?: No VTE Prior VTE?: No VTE Risk Level:: Medical - moderate - high VTE Device Contraindication: N/A - Device Ordered VTE Drug Contraindication: Treatment Not Indicated
--- NOTE | 2023-05-21 15:15 | HO.ANESPROP2 ---
HPI - Anesthesia Eval Consult details Narrative: [facility] Active Problems Active Problems: All Active Problems (Updated 05/20/23 @ 13:25 by Martha Jaramillo, RN) S/P laparoscopic cholecystectomy (Acute) Cholelithiasis (Acute) Acute cholangitis (Acute) Fatigue (Acute) Mass in the abdomen (Acute) Essential hypertension (Acute) Ascending aortic aneurysm (Acute) Past Medical History Medical History (Updated 05/20/23 @ 13:25 by Martha Jaramillo RN) Hx of gastroesophageal reflux (GERD) History of high cholesterol IBS (irritable bowel syndrome) Essential hypertension Ascending aortic aneurysm Family History Family History Father Cancer Mother Cancer Family history of problems with anesthesia: No Surgical History Surgical History (Updated 05/21/23 @ 15:19 by Elsie Ramirez MD) Hx of colonoscopy History of lumbar surgery (~2012) History of Problems with Anesthesia: No Social History Social History Household Members: Family Housing: House Do you presently have visiting nurse or other home services: No Alcohol intake: current Alcohol intake frequency: 0-2 drinks per day Patient Tobacco Use Status: Never used Tobacco service: No Meds Allergies Allergy/AdvReac Type Severity Reaction Status Date / Time No Known Allergies Allergy Verified 05/21/23 14:23 [No Known Allergies*] Active Medications: Current Medications Albuterol Sulfate (Albuterol Sulfate 90 Mcg 8 Gm Inhaler) 2 puff INHALE Q6H PRN PRN Reason: wheezing Amlodipine Besylate (Amlodipine Besylate 5 Mg Tablet) 5 mg PO DAILY [facility] Last Admin: 05/20/23 16:15 Dose: Not Given Cyclobenzaprine HCl (Cyclobenzaprine Hcl 10 Mg Tablet) 10 mg PO BEDTIME PRN PRN Reason: Muscle Spasm Last Admin: 05/20/23 02:48 Dose: 10 mg Fluoxetine HCl (Fluoxetine Hcl 20 Mg Capsule) 20 mg PO DAILY [facility] Last Admin: 05/20/23 16:15 Dose: Not Given Fluticasone/Vilanterol (Fluticasone/Vilanterol 200/25 Blst.W.Dev) 1 puff INHALE DAILY [facility] Last Admin: 05/21/23 08:01 Dose: 1 puff Hydralazine HCl (Hydralazine Hcl 25 Mg Tablet) 25 mg PO TID [facility]; Protocol Last Admin: 05/20/23 19:40 Dose: 25 mg Dextrose/Sodium Chloride (D5ns) 1,000 mls @ 80 mls/hr IVCONT .[id number] [facility] Last Admin: 05/21/23 11:14 Dose: 80 mls/hr Ceftriaxone Sodium 2 gm/ (Sodium Chloride) 50 mls @ 100 mls/hr IV Q24H [facility] Last Infusion: 05/21/23 11:13 Dose: Infused Ipratropium [place] (Ipratropium [place] 0.03 % 30 Ml [place]) 2 spray NOSTRIL-B TID PRN PRN Reason: allergies Melatonin (Melatonin 3 Mg Tablet) 6 mg PO BEDTIME PRN PRN Reason: Insomnia Last Admin: 05/19/23 02:44 Dose: 6 mg Morphine Sulfate (Morphine Sulfate 4 Mg/Ml Cartridge) 4 mg IVPUSH Q4H PRN; Protocol PRN Reason: Pain, Severe (Pain Scale 7-10) Last Admin: 05/21/23 12:37 Dose: 4 mg Multivitamins/Vitamin C (Multivitamin Tablet) 1 tab PO DAILY [facility] Last Admin: 05/20/23 16:15 Dose: Not Given Omeprazole (Omeprazole 40 Mg Capsule.Dr) 40 mg PO DAILY@0630 [facility] Last Admin: 05/21/23 06:10 Dose: 40 mg Oxycodone HCl (Oxycodone Hcl Immed Release 5 Mg Tablet) 5 mg PO Q4H PRN PRN Reason: Pain, Moderate(Pain Scale 4-6) Last Admin: 05/21/23 06:13 Dose: 5 mg Pantoprazole Sodium (Pantoprazole Sodium 40 Mg/10 Ml Vial) 40 mg IVPUSH DAILY [facility] Last Admin: 05/21/23 11:13 Dose: 40 mg Propranolol HCl (Propranolol Hcl 10 Mg Tablet) 10 mg PO TID [facility]; Protocol Last Admin: 05/20/23 19:40 Dose: 10 mg Sodium Chloride (0.9 % Sodium Chloride Flush 3 Ml Syringe) 3 ml IVFLUSH QSHIFT [facility] Last Admin: 05/21/23 07:18 Dose: Not Given Valsartan (Valsartan 80 Mg Tablet) 80 mg PO DAILY [facility] Last Admin: 05/20/23 16:17 Dose: Not Given Home Medications Medication Instructions Recorded Confirmed Last Taken Type fluoxetine 20 mg capsule 20 mg PO DAILY 01/04/20 05/19/23 05/18/23 History ibuprofen 800 mg tablet 800 mg PO TID PRN Pain 01/04/20 05/19/23 05/18/23 History omeprazole 40 mg capsule,delayed 40 mg PO DAILY 01/04/20 05/19/23 05/18/23 History release pravastatin 10 mg tablet 10 mg PO DAILY 11/08/20 05/19/23 05/18/23 History albuterol sulfate 90 mcg/actuation 2 puff inhalation Q6H PRN wheezing 05/19/23 05/19/23 05/18/23 History aerosol inhaler amlodipine 5 mg-olmesartan 20 mg 1 tab PO DAILY 05/19/23 05/19/23 Unknown History tablet fluticasone furoate 200 1 ea inhalation DAILY 05/19/23 05/19/23 05/18/23 History mcg-vilanterol 25 mcg/dose inhalation powder (Breo Ellipta) ipratropium bromide 21 mcg (0.03 2 spray intranasal TID PRN 05/19/23 05/19/23 05/18/23 History %) nasal spray allergies multivitamin 1 tab PO DAILY 05/19/23 05/19/23 05/18/23 History prasterone (dhea) 50 mg tablet 100 mg PO DAILY 05/19/23 05/19/23 05/18/23 History (DHEA) Exam Height,Weight and Vital Signs: Height 5 ft 10 in Weight 92.7 kg Last Vital Signs Temp 100.5 F H 05/21/23 14:37 Pulse 76 05/21/23 14:37 Resp 16 05/21/23 14:37 BP 127/75 05/21/23 14:37 Pulse Ox 91 L 05/21/23 14:37 O2 Del Method Room Air 05/21/23 14:37 O2 Flow Rate 2 05/20/23 16:38 Pertinent Lab Results Pertinent Lab Results: Laboratory Tests 05/18/23 05/18/23 05/18/23 17:27 17:41 19:14 WBC 17.3 H RBC 4.19 L Hgb 14.9 Hct 41.5 L MCV 99.0 H MCH 35.6 H MCHC 35.9 RDW 11.5 Plt Count 339 MPV 9.3 L Immature Gran % (Auto) 0.6 H Neut % (Auto) 86.3 H Lymph % (Auto) 7.5 L [place] % (Auto) 4.3 Eos % (Auto) 0.9 Baso % (Auto) 0.4 Lymph # (Auto) 1.3 [place] # (Auto) 0.7 Eos # (Auto) 0.2 Baso # (Auto) 0.1 Abs Immat Gran (auto) 0.11 H Absolute Neuts (auto) 14.9 H Absolute Nucleated RBC 0.000 Nucleated RBC % (auto) 0.0 Hold Purple Top PT INR APTT Sodium 137 Potassium 4.6 Chloride 102 Carbon Dioxide 25 Anion Gap 15 BUN 15 Creatinine 0.91 Estim Creat Clear Calc 81.5 Estimated GFR > 60 Random Glucose 145 H Lactic Acid Calcium 9.4 Magnesium Total Bilirubin 1.6 H Direct Bilirubin 1.1 H AST 127 H ALT 90 H Alkaline Phosphatase 174 H Troponin I High Sens 3.6 Total Protein 8.1 H Albumin 4.5 Lipase 43 Urine Color Dark Yellow Urine Appearance Clear Urine pH 7.0 Ur Specific [place] 1.015 Urine Protein Negative Urine Glucose (UA) Negative Urine Ketones Negative Urine Blood Negative Urine Nitrite Negative Ur Leukocyte Esterase Negative Hepatitis A IgM Ab Hep Bs Antigen Hep Bs Antibody Hep B Core Total Ab Hepatitis C Ab (EIA) Influenza Type A (PCR) NEGATIVE Influenza Type B (PCR) NEGATIVE RSV RNA Qual (PCR) NEGATIVE SARS-CoV-2 RNA (RT-PCR) NEGATIVE 05/19/23 05/19/23 05/20/23 01:38 04:27 05:59 WBC 9.1 7.0 RBC 3.34 L D 3.71 L Hgb 11.8 L D 13.0 L Hct 33.2 L 36.4 L MCV 99.4 H 98.1 H MCH 35.3 H 35.0 H MCHC 35.5 35.7 RDW 11.7 11.7 Plt Count 263 248 MPV 9.4 9.6 Immature Gran % (Auto) 0.4 Neut % (Auto) 75.8 H Lymph % (Auto) 14.8 L [place] % (Auto) 7.8 Eos % (Auto) 0.8 Baso % (Auto) 0.4 Lymph # (Auto) 1.3 [place] # (Auto) 0.7 Eos # (Auto) 0.1 Baso # (Auto) 0.0 Abs Immat Gran (auto) 0.04 H Absolute Neuts (auto) 6.9 Absolute Nucleated RBC 0.000 0.000 Nucleated RBC % (auto) 0.0 0.0 Hold Purple Top PT 12.3 INR 1.0 APTT 26.4 Sodium 138 137 Potassium 3.8 3.8 Chloride 107 108 Carbon Dioxide 22 22 Anion Gap 13 11 L BUN 15 10 Creatinine 0.92 0.84 Estim Creat Clear Calc 80.7 88.2 Estimated GFR > 60 > 60 Random Glucose 102 95 Lactic Acid 1.1 Calcium 7.8 L D 8.4 D Magnesium 1.7 Total Bilirubin 2.5 H 1.3 H Direct Bilirubin AST 219 H 81 H ALT 241 H 177 H Alkaline Phosphatase 143 H 154 H Troponin I High Sens Total Protein 5.7 L 6.4 L Albumin 3.3 L 3.5 Lipase Urine Color Urine Appearance Urine pH Ur Specific [place] Urine Protein Urine Glucose (UA) Urine Ketones Urine Blood Urine Nitrite Ur Leukocyte Esterase Hepatitis A IgM Ab Nonreactive Hep Bs Antigen Negative Hep Bs Antibody NONREACTIVE Hep B Core Total Ab Nonreactive Hepatitis C Ab (EIA) Nonreactive Influenza Type A (PCR) Influenza Type B (PCR) RSV RNA Qual (PCR) SARS-CoV-2 RNA (RT-PCR) 05/21/23 05:13 WBC RBC Hgb Hct MCV MCH MCHC RDW Plt Count MPV Immature Gran % (Auto) Neut % (Auto) Lymph % (Auto) [place] % (Auto) Eos % (Auto) Baso % (Auto) Lymph # (Auto) [place] # (Auto) Eos # (Auto) Baso # (Auto) Abs Immat Gran (auto) Absolute Neuts (auto) Absolute Nucleated RBC Nucleated RBC % (auto) Hold Purple Top SEE NOTE PT INR APTT Sodium 134 L Potassium 4.2 Chloride 103 Carbon Dioxide 22 Anion Gap 13 BUN 9 Creatinine 0.95 Estim Creat Clear Calc 78.0 Estimated GFR > 60 Random Glucose 153 H Lactic Acid Calcium 8.5 Magnesium Total Bilirubin 0.8 Direct Bilirubin 0.5 AST 63 H ALT 141 H Alkaline Phosphatase 130 H Troponin I High Sens Total Protein 6.4 L Albumin 3.4 L Lipase Urine Color Urine Appearance Urine pH Ur Specific [place] Urine Protein Urine Glucose (UA) Urine Ketones Urine Blood Urine Nitrite Ur Leukocyte Esterase Hepatitis A IgM Ab Hep Bs Antigen Hep Bs Antibody Hep B Core Total Ab Hepatitis C Ab (EIA) Influenza Type A (PCR) Influenza Type B (PCR) RSV RNA Qual (PCR) SARS-CoV-2 RNA (RT-PCR) Airway Mallampati Class: II TM Dist: <=3cm Neck ROM: Full Heart: ok Lungs: ok Assessment and Plan Assessment Anesthesia Assessment: Anesthesia Plan Discussed and Chart Reviewed Final Anesthetic Review Family History of Problems with Anesthesia: No History of Problems with Anesthesia: No NPO: Yes ASA Class: III Final Preanesthetic Review: No Changes in Pt Med Stat, Meds/Allgs Chart Reviewed, Consent Obtained/Reviewed and Anes Risks/Benef Reviewed Patient Risk: Intermediate Procedure Risk: Intermediate Anesthetic Plan Anesthetic Plan: GA and Agree w/ Assess. and Plan Disposition: Standard PACU
--- NOTE | 2023-05-21 15:18 | P.PNID_ITS ---
Subjective Subjective Date of Service: 05/21/23 Critical Care Time (minutes): 15 Comment: he has Klebsiella oxytoca blood Objective Data Labs 05/20/23 05:59 05/21/23 05:13 Labs: Laboratory Results - last 24 hr 05/21/23 05:13 Hold Purple Top SEE NOTE Sodium 134 L Potassium 4.2 Chloride 103 Carbon Dioxide 22 Anion Gap 13 BUN 9 Creatinine 0.95 Estim Creat Clear Calc 78.0 Estimated GFR > 60 Random Glucose 153 H Calcium 8.5 Total Bilirubin 0.8 Direct Bilirubin 0.5 AST 63 H ALT 141 H Alkaline Phosphatase 130 H Total Protein 6.4 L Albumin 3.4 L Microbiology Microbiology Results: Microbiology 05/20/23 08:17 Blood - Venous Blood Culture - Preliminary No growth after 24 hours. 05/20/23 08:17 Blood - Venous Blood Culture - Preliminary No growth after 24 hours. 05/19/23 01:38 Blood - Venous Blood Culture - Final Klebsiella oxytoca 05/19/23 01:34 Blood - Venous Blood Culture - Final Klebsiella oxytoca Physical Exam 2 Vital Signs: Vital Signs: Last Vital Signs Temp 100.5 F H 05/21/23 14:37 Pulse 76 05/21/23 14:37 Resp 16 05/21/23 14:37 BP 127/75 05/21/23 14:37 Pulse Ox 91 L 05/21/23 14:37 O2 Del Method Room Air 05/21/23 14:37 O2 Flow Rate 2 05/20/23 16:38 BMI result Body Mass Index 29.3 Const: General: cooperative HEENT: Head: Yes normal to inspection Face and sinus: Yes normal facial exam Mouth: Normal oral and palatal mucosa present Teeth and gingiva: d entition normal Eyes: General: appearance normal, both eyes and all related structures P upils: Equal, round and reactive pupils present Resp: Effort & Inspection: normal respiratory effort Cardio: Rate: regular rate Rhythm: regular rhythm GI: Palpation (GI): Soft to palpation and nontender : General: Yes no CVA tenderness Back/Spine/Pelvis: Back: no CVA tenderness Skin: General skin exam: no rashes or lesions noted Neuro: General: moves all extremities Cranial nerves: Yes Equal, round and reactive pupils present Extrem: General: Yes normal to inspection Psych: Appearance: grossly normal Assessment and Plan Assessment and plan (1) S/P laparoscopic cholecystectomy: Problem details: Klebsiella oxytoca Status: Acute Assessment and Plan: Klebsiella oxytoca Recheck blood culture and doesnt need to wait for results. 14 day total antibiotics,may switch to po cephalosporin on discharge. (2) Acute cholangitis: Status: Acute Time Spent With Patient Time: Total time managing care of this patient today ____ minutes.
--- NOTE | 2023-05-21 15:34 | W.PM.OPN ---
Operative Note Operative Note Date of Service: 05/21/23 Narrative: Description:?Endoscopic retrograde cholangiopancreatography (ERCP) PROCEDURE:?Endoscopic retrograde cholangiopancreatography with sphincterotomy and balloon extraction of debris INDICATION FOR THE PROCEDURE:?Patient with a history of gallstones and abn LFT with recent cholecystectomy and concern for filing defect on IOC MEDICATIONS:?General anesthesia. The risks of the procedure were made aware to the patient and consisted of medication reaction, bleeding, perforation, aspiration, and post ERCP pancreatitis. DESCRIPTION OF PROCEDURE:?After informed consent and appropriate sedation, the duodenoscope was inserted into the oropharynx, down the esophagus, and into the stomach. The scope was then advanced through the pylorus to the ampulla which was adjacent to a small diverticulum. The ampulla appeared normal. The duct was immediately accessed using wire guided technique and placement in CBD confirmed by cholangiogram. The CBD was dilated but no filling defect was seen. A balloon was then exchanged and the duct was swept with return of small amounts of dark stone like debris. A few more sweeps were made without any debris recovered. An occlusion cholangiogram was then performed and again no defects seen and there was good drainage noted. FINDINGS: 1. Microlithiasis, debris removed from CBD RECOMMENDATIONS: 1. NPO except ice chips for next 6 hrs then can advance diet to clears and normal diet tomorrow 2. Can go home if pain free on with PO diet and no other issues/
[2023-05-21] MEDS: Multivitamin TABLET 1 TAB PO (16:49)
[2023-05-21] MEDS: FLUoxetine HCl 20 MG CAPSULE PO (16:49)
[2023-05-21] MEDS: hydrALAZINE HCl 25 MG TABLET PO ×2 (16:49→19:44)
[2023-05-21] MEDS: Valsartan 80 MG TABLET PO (16:49)
[2023-05-21] MEDS: amLODIPine Besylate 5 MG TABLET PO (16:49)
[2023-05-21] MEDS: 0.9 % Sodium Chloride Flush 3 ML SYRINGE IVFLUSH ×2 (16:49→19:47)
[2023-05-21] MEDS: Propranolol HCL 10 MG TABLET PO ×2 (16:49→19:44)
[2023-05-22 03:35] VITALS: BP 159/77; PULSE 81; RESP 17; TEMP 36.7; O2SAT 94
[2023-05-22] MEDS: oxyCODONE HCl Immed Release 5 MG TABLET PO ×2 (03:42→09:36)
[2023-05-22] MEDS: Omeprazole 40 MG CAPSULE.DR PO (06:14)
[2023-05-22 07:45] VITALS: PULSE 81; RESP 17; O2SAT 94
[2023-05-22] MEDS: Fluticasone/Vilanterol 200/25 BLST.W.DEV 1 PUFF INHALE (07:45)
--- NOTE | 2023-05-22 07:46 | P.PNGS_ITS ---
Subjective Subjective Date of Service: 05/22/23 Interval history: Feels improved. Denies RUQ pain, reports mild incisional pain. Has not had solid food following ERCP. Physical Exam 2 Vital Signs: Vital Signs: Last Vital Signs Temp 98.1 F 05/22/23 03:35 Pulse 81 05/22/23 07:45 Resp 17 05/22/23 07:45 BP 159/77 H 05/22/23 03:35 Pulse Ox 94 05/22/23 03:35 O2 Del Method Room Air 05/22/23 03:35 O2 Flow Rate 3 05/21/23 16:06 BMI result Body Mass Index 29.3 Const: General: comfortable, no acute distress and alert O rientation/consciousness: patient oriented x3 Resp: Effort & Inspection: normal respiratory effort GI: Inspection: No distended and Yes incision (clean) Palpation (GI): Soft to palpation and Tenderness to palpation present (GI) (mild incisional) Skin: General skin exam: no rashes or lesions noted and no jaundice Neuro: General: patient oriented x3 Objective Data Active Medications Albuterol Sulfate (Albuterol Sulfate 90 Mcg 8 Gm Inhaler) 2 puff INHALE Q6H PRN PRN Reason: wheezing Amlodipine Besylate (Amlodipine Besylate 5 Mg Tablet) 5 mg PO DAILY [facility] Last Admin: 05/21/23 16:49 Dose: 5 mg Documented By: FANNY Cyclobenzaprine HCl (Cyclobenzaprine Hcl 10 Mg Tablet) 10 mg PO BEDTIME PRN PRN Reason: Muscle Spasm Last Admin: 05/20/23 02:48 Dose: 10 mg Documented By: SHYLA Fluoxetine HCl (Fluoxetine Hcl 20 Mg Capsule) 20 mg PO DAILY [facility] Last Admin: 05/21/23 16:49 Dose: 20 mg Documented By: FANNY Fluticasone/Vilanterol (Fluticasone/Vilanterol 200/25 Blst.W.Dev) 1 puff INHALE DAILY [facility] Last Admin: 05/22/23 07:45 Dose: 1 puff Documented By: A[place] Hydralazine HCl (Hydralazine Hcl 25 Mg Tablet) 25 mg PO TID [facility]; Protocol Last Admin: 05/21/23 19:44 Dose: 25 mg Documented By: MARCO Ceftriaxone Sodium 2 gm/ (Sodium Chloride) 50 mls @ 100 mls/hr IV Q24H [facility] Last Infusion: 05/21/23 11:13 Dose: Infused Documented By: FANNY Ipratropium [place] (Ipratropium [place] 0.03 % 30 Ml [place]) 2 spray NOSTRIL-B TID PRN PRN Reason: allergies Melatonin (Melatonin 3 Mg Tablet) 6 mg PO BEDTIME PRN PRN Reason: Insomnia Last Admin: 05/19/23 02:44 Dose: 6 mg Documented By: TAMIKO Morphine Sulfate (Morphine Sulfate 4 Mg/Ml Cartridge) 4 mg IVPUSH Q4H PRN; Protocol PRN Reason: Pain, Severe (Pain Scale 7-10) Last Admin: 05/21/23 12:37 Dose: 4 mg Documented By: FANNY Multivitamins/Vitamin C (Multivitamin Tablet) 1 tab PO DAILY [facility] Last Admin: 05/21/23 16:49 Dose: 1 tab Documented By: FANNY Omeprazole (Omeprazole 40 Mg Capsule.Dr) 40 mg PO DAILY@0630 [facility] Last Admin: 05/22/23 06:14 Dose: 40 mg Documented By: MARCO Oxycodone HCl (Oxycodone Hcl Immed Release 5 Mg Tablet) 5 mg PO Q4H PRN PRN Reason: Pain, Moderate(Pain Scale 4-6) Last Admin: 05/22/23 03:42 Dose: 5 mg Documented By: MARCO Pantoprazole Sodium (Pantoprazole Sodium 40 Mg/10 Ml Vial) 40 mg IVPUSH DAILY [facility] Last Admin: 05/21/23 11:13 Dose: 40 mg Documented By: FANNY Propranolol HCl (Propranolol Hcl 10 Mg Tablet) 10 mg PO TID [facility]; Protocol Last Admin: 05/21/23 19:44 Dose: 10 mg Documented By: MARCO Sodium Chloride (0.9 % Sodium Chloride Flush 3 Ml Syringe) [facility] Last Admin: 05/21/23 19:47 Dose: 3 ml Documented By: MARCO Valsartan (Valsartan 80 Mg Tablet) 80 mg PO DAILY [facility] Last Admin: 05/21/23 16:49 Dose: 80 mg Documented By: FANNY Labs 05/20/23 05:59 05/21/23 05:13 Labs: Laboratory Results - last 24 hr 05/21/23 05:13 Anion Gap 13 Estim Creat Clear Calc 78.0 Estimated GFR > 60 Random Glucose 153 H Calcium 8.5 Microbiology Microbiology Results: Microbiology 05/20/23 08:17 Blood Culture - Preliminary Blood - Venous No growth after 24 hours. 05/20/23 08:17 Blood Culture - Preliminary Blood - Venous No growth after 24 hours. 05/19/23 01:38 Blood Culture - Final Blood - Venous Klebsiella oxytoca 05/19/23 01:34 Blood Culture - Final Blood - Venous Klebsiella oxytoca Procedures Date of Service Date of Service: 05/22/23 Progress Note: A&P Assessment and plan (1) S/P laparoscopic cholecystectomy: Status: Acute Plan s/p ERCP yesterday showed debris in CBD. Patient improved this am. If tolerating solid diet, stable for dc to home from surgical standpoint with f/u in [address] Ortega. Time Spent With Patient Time: Total time managing care of this patient today ____ minutes. Quality Stroke Does the patient have a stroke diagnosis?: No VTE Prior VTE?: No VTE Risk Level:: Medical - moderate - high VTE Device Contraindication: N/A - Device Ordered VTE Drug Contraindication: Treatment Not Indicated
[2023-05-22 08:00] VITALS: BP 149/81; PULSE 80; RESP 18; TEMP 36.8; O2SAT 93
--- NOTE | 2023-05-22 08:19 | P.DS_ITS ---
DS: Providers Provider Date of Service: 05/22/23 Date of admission: 05/19/23 02:07 Primary care physician: ELIZABETH Ahn Consults: 05/19/23 02:12 Consult to Gastroenterology Routine Consulting Provider: Karen Reed Reason for consultation: Abdominal pain, elevated LFT Has provider been notified: Yes 05/19/23 14:48 Consult to Infectious Diseases Routine Consulting Provider: [facility] [place] Infect[facility] Reason for consultation: gram negative bacteremia Has provider been notified: No 05/19/23 18:00 Consult to General Surgery Routine Consulting Provider: [facility] [place] General Surgeons Reason for consultation: possible cholangitis and gram neg bactermia Has provider been notified: No DS: Diagnosis Discharge Diagnosis (1) S/P laparoscopic cholecystectomy: Status: Acute DS: Summary Hospital Course Hospital Course: admission hpi Chief Complaint: Abdominal pain Alex Samuel is a 73 years old man with past medical history significant for essential hypertension and hyperlipidemia presents to the emergency department complaining of epigastric pain that started this morning. Denies associated nausea, vomiting, diarrhea, fever or chills. He also denied any acute urinary symptoms. Denies chest pain or shortness on breath. Last meal was peanut butter sandwich at lunchtime. No jaundice or yellowish sclera. He denied history abdominal surgeries. He drinks alcohol daily -2 light beers do not drink alcohol today. Did not report tobacco smoking or illicit drug use. In the ED, he was found to have temperature of 1.2. There is no tachycardia or hypotension. The and saturation is normal on room air. Blood workup is remarkable for marked leukocytosis, 17.3. Lactic acidosis. Hemoglobin and platelets are normal. There are no electrolyte imbalances. Creatinine is 0.981. LFTs are elevated (elevated direct bilirubin). Lipase is normal. Abdominal pelvis CT scan showed no acute abdominal pathology. There is cholelithiasis without cholecystitis or common bile dilatation. Abdominal and showed tiny gallstones and sludge without acute inflammation denies changes (CBD 0.5 cm). ED tx: Zosyn 3.375 g, acetaminophen 975 mg p.o., morphine 1 mg IV hospital course The patient presented with right upper quadrant (RUQ) pain, fever, and elevated liver function tests (LFTs). CT of the abdomen revealed no acute pathology aside from gallstones. Ultrasound (US) showed stones with sludge but no acute inflammation. However, the clinical presentation was consistent with acute cholecystitis or cholangitis. MRCP showed a hydropic gallbladder with gallbladder wall thickening and layering gallstones, suggesting acute cholecystitis. There was also dilatation of the proximal main pancreatic duct, common duct, and central intrahepatic ducts. An ampullary lesion could not be excluded. The patient was started on Zosyn, and surgical consultation was requested. Subsequently, the patient developed sepsis with Klebsiella oxytoca bacteremia. A laparoscopic cholecystectomy was performed the following day 05/20/23, revealing a filling defect on intraoperative cholangiogram (IOC). An ERCP was performed the day after, revealing microlithiasis and debris in the common bile duct (CBD), which were removed. The patient's diet was advanced to a regular diet, which he tolerated well. Regarding the bacteremia related to the gallbladder process, the patient was initially treated with Zosyn, which was later changed to Ceftriaxone once culture sensitivity results were available. An infectious disease expert recommended tranisition to oral Cefuroxime for 14 days Time Attestation Discharge Coordination Time (in mins): 38 Quality: Safe Use of Opioids Does Pt have an Active Cancer Diagnosis on the Problem List?: No Quality: Stroke Does the patient have a stroke diagnosis?: No Physical Exam Vital Signs: Vital Signs: Last Vital Signs Temp 98.2 F 05/22/23 08:00 Pulse 80 05/22/23 08:00 Resp 18 05/22/23 08:00 BP 149/81 H 05/22/23 08:00 Pulse Ox 93 05/22/23 08:00 O2 Del Method Room Air 05/22/23 08:00 O2 Flow Rate 3 05/21/23 16:06 BMI result Body Mass Index 29.3 General: AO X 3, no acute distress Resp: CTA bilateral CVS: S1,S2,RRR GI: +BS, mild tenderness around incisions, no distention Skin: No rash Neuro: motor grossly intact Psych: appropriate affect DS: Data Data Completed and Pending Pending studies at discharge: Pending at discharge 05/20/23 14:45 Surgical [PTH] Routine Labs on day of discharge: Laboratory Results - last 24 hr 05/21/23 05:13 Sodium 134 L Potassium 4.2 Chloride 103 Carbon Dioxide 22 Anion Gap 13 BUN 9 Creatinine 0.95 Estim Creat Clear Calc 78.0 Estimated GFR > 60 Random Glucose 153 H Calcium 8.5 Preliminary micro results at discharge 05/20/23 08:17 Blood Culture - Preliminary Blood - Venous No growth after 24 hours. 05/20/23 08:17 Blood Culture - Preliminary Blood - Venous No growth after 24 hours. Discharge Plan Discharge Anticipated Discharge Date/Time: 05/22/23 08:19 Patient Disposition: Home, Self-Care Discharge Diagnosis: Cholangitis, sepsis, bacteremia, Referrals: Amy Lazcano PA [Primary Care Provider] - 1 Week Andrew Ortega MD [Physician] - 1 Week Discharge Medications: New oxycodone 5 mg tablet 5 mg PO Q4H PRN (Reason: pain (scale score 7-10)) Qty: 24 0RF Rx Instructions: Partial Fill upon patient request. docusate sodium [Colace] 100 mg capsule 100 mg PO BID Qty: 30 0RF Continued amlodipine-olmesartan 5-20 mg tablet 1 tab PO DAILY fluticasone furoate-vilanterol [Breo Ellipta] 200-25 mcg/dose blister with device 1 ea INHALATION DAILY albuterol sulfate 90 mcg/actuation HFA aerosol inhaler 2 puff INHALATION Q6H PRN (Reason: wheezing) ipratropium bromide 21 mcg (0.03 %) spray,non-aerosol 2 spray intranasal TID PRN (Reason: allergies) DHEA 50 mg Tablet 100 mg PO DAILY multivitamin Tablet 1 tab PO DAILY omeprazole 40 mg capsule,delayed release(DR/EC) 40 mg PO DAILY ibuprofen 800 mg tablet 800 mg PO TID PRN (Reason: Pain) fluoxetine 20 mg capsule 20 mg PO DAILY pravastatin 10 mg tablet 10 mg PO DAILY Diet: Advance to usual diet Activity on Discharge: As tolerated Stand Alone Forms: Patient Portal Discharge page Activity Restrictions/Additional Instructions: Apply an ice pack for short intervals (20 minutes on, followed by at least 20 minutes off) for the first 2 days. Do not apply heat. Do not use creams, lotions, or topical antibiotics. These can cause infection or allergic reaction. Ok to shower 48 hours after your surgery. You have steri strips (small white cloth strips) covering your incision- these will fall off ~1 week. Follow up in office with Dr. Ortega in 1 week. ([phone]) No heavy lifting (>10lbs) or strenuous activity! Call Your Doctor If: -Your temperature exceeds 101.5? F -You experience excessive pain or swelling -You have an unexpected reaction to medication -You have excessive bleeding -You experience continued vomiting/nausea -Your incision begins to separate -Your incision shows signs of infection such as increased redness, swelling, excessive pain, drainage (light blood or clear fluid is normal) or heat Care Plan Goals: recovery from gallbladder surgery, sepsis, cholangitis Health Concerns: Sepsis, cholangitis, cholecystitis, Plan of Treatment: Take cefuroxime as directed and follow-up with your doctor and surgeon as directed. Assessment: See above Patient Instructions: Cholecystitis (GEN), Gallstones (GEN), Sepsis (GEN), MRCP (Magnetic Resonance Cholangiopancreatography) (GEN)
[2023-05-22] MEDS: 0.9 % Sodium Chloride Flush 3 ML SYRINGE IVFLUSH (09:09)
[2023-05-22] MEDS: hydrALAZINE HCl 25 MG TABLET PO (09:10)
[2023-05-22] MEDS: Propranolol HCL 10 MG TABLET PO (09:10)
[2023-05-22] MEDS: FLUoxetine HCl 20 MG CAPSULE PO (09:10)
[2023-05-22] MEDS: Valsartan 80 MG TABLET PO (09:11)
[2023-05-22] MEDS: amLODIPine Besylate 5 MG TABLET PO (09:11)
[2023-05-22] MEDS: Multivitamin TABLET 1 TAB PO (09:11)
[2023-05-22] MEDS: cefTRIAXone sodium 2 GM in 0.9 % Sodium Chloride 50 ML IV (09:12)
--- NOTE | 2023-05-22 13:02 | MHC.CM.PN ---
PT WILL DC HOME TODAY WITH NO SERVICES VIA PRIVATE TRANSPORT
--- NOTE | 2023-05-22 13:53 | HO.POSTANES ---
Post Anesthesia Evaluation Post Anesthesia Evaluation Date of Service: 05/22/23 Vital Signs: Vital Signs Temp Pulse Resp BP Pulse Ox O2 Del Method 05/22/23 08:00 98.2 F 80 18 149/81 H 93 Room Air 05/22/23 07:45 81 17 05/22/23 03:35 98.1 F 81 17 159/77 H 94 Room Air Anesthesia: General Endotracheal-GETA Mental Status: Awake Pain Control: Satisfactory Nausea/Vomiting: None Hydration: Adequate Anesthesia-Related Issues: No Anes. Related Issues
== END 2023-05-22 14:15 | disposition home or self-care (01) | DRG 710 ==
LOC: HO.ED 05-19 01:43 → HO.EDOVER 05-19 02:13 → HO.S3 05-19 07:15
PROVIDERS: Internal Medicine; Internal Medicine Gastroenterology; Nurse Practitioner Family; Surgery; Admitting Provider Internal Medicine; Emergency Provider Emergency Medicine; PCP Physician Assistant; Visit Provider Internal Medicine
PROC: 0FT44ZZ Resection of Gallbladder, Percutaneous Endoscopic Approach (ICD-10-PCS; CPT 47562; principal; 2023-05-20 14:10)
PROC: 0FC98ZZ Extirpation of Matter from Common Bile Duct, Via Natural or Artificial Opening Endoscopic (ICD-10-PCS; CPT 43260; principal; 2023-05-21 14:30)
DX: A41.9 Sepsis, unspecified organism (principal); K80.00 Calculus of gallbladder with acute cholecystitis without obstruction; K83.09 Other cholangitis; I71.21 Aneurysm of the ascending aorta, without rupture; I10 Essential (primary) hypertension; E78.5 Hyperlipidemia, unspecified; K42.0 Umbilical hernia with obstruction, without gangrene; Z20.822 Contact with and (suspected) exposure to COVID-19; Z79.51 Long term (current) use of inhaled steroids; Z79.899 Other long term (current) drug therapy
CPT/HCPCS: 0241U; 36415; 74177; 74181; 76705; 80048; 80053; 80076; 81003; 83605; 83690; 83735; 84484; 85025; 85027; 85610; 85730; 86704; 86706; 86709; 86803; 87040; 87077; 87186; 87205; 87340; 88302; 88304; 93005; 94640; 99285; C1726; C1769; C9113; J0665; J0696; J1170; J1610; J2270; J2405; J2543; J2704; J3010; Q9967

== ENCOUNTER → 2023-05-18 17:39 | Outpatient (BNV) | payer OTHER, SELFPAY | PROVIDERS: Admitting Provider Internal Medicine; Emergency Provider Emergency Medicine; PCP Physician Assistant; Visit Provider Internal Medicine Cardiovascular Disease | DX: R00.0 Tachycardia, unspecified (principal) | CPT/HCPCS: 93010 ==

== ENCOUNTER → 2023-05-19 02:07 | Outpatient (BNV) | payer OTHER, SELFPAY | PROVIDERS: Admitting Provider Internal Medicine; Emergency Provider Emergency Medicine; PCP Physician Assistant; Visit Provider Internal Medicine | DX: I71.21 Aneurysm of the ascending aorta, without rupture (principal); K80.51 Calculus of bile duct without cholangitis or cholecystitis with obstruction; I10 Essential (primary) hypertension | CPT/HCPCS: 99223; 99232; 99239; 99499 ==

== ENCOUNTER → 2023-05-19 02:07 | Outpatient (BNV) | payer OTHER, SELFPAY | PROVIDERS: Admitting Provider Internal Medicine; Emergency Provider Emergency Medicine; PCP Physician Assistant; Visit Provider Internal Medicine | DX: Z90.49 Acquired absence of other specified parts of digestive tract (principal); K83.09 Other cholangitis | CPT/HCPCS: 99222; 99232 ==

== ENCOUNTER → 2023-05-19 02:07 | Outpatient (BNV) | payer OTHER, SELFPAY | PROVIDERS: Admitting Provider Internal Medicine; Emergency Provider Emergency Medicine; PCP Physician Assistant; Visit Provider Physician Assistant Surgical | DX: K80.20 Calculus of gallbladder without cholecystitis without obstruction (principal) | CPT/HCPCS: 47563; 99024; 99222 ==

== ENCOUNTER → 2023-05-19 02:07 | Outpatient (BNV) | payer OTHER, SELFPAY | PROVIDERS: Admitting Provider Internal Medicine; Emergency Provider Emergency Medicine; PCP Physician Assistant; Visit Provider Internal Medicine | DX: K80.20 Calculus of gallbladder without cholecystitis without obstruction (principal); Z90.49 Acquired absence of other specified parts of digestive tract | CPT/HCPCS: 43277; 99222; 99232 ==

== ENCOUNTER 2023-06-02 10:16 | Outpatient (AMB) | payer OTHER, SELFPAY ==
--- NOTE | 2023-06-02 10:25 | MHC.OFFVIS ---
Intake Vital Signs 06/02/23 10:33 Weight 194 lb BP 121/71 Blood Pressure Location Rt brachial Position Sitting Pulse 106 H Intake Visit Reasons: S/P Lap judy, umbilical hernia Intake Note: Patient here s/p lap judy and umbilical hernia repair. Reports incisions healing well. Patient c/o: reports no concerns SX: 05-20-23 Casino Change Attendant Required: No Accompanied by: Self / Same As Patient Allergies No Known Allergies [No Known Allergies*] Allergy (Verified 06/02/23 10:32) HPI HPI Comments History of Present Illness Details Patient presents for follow-up. He is doing well. He has tolerating a diet. Having regular bowel habits. His increasing activity level. He has minimal incisional discomfort. [facility] Medical History Umbilical hernia, incarcerated (05/20/23) Hx of gastroesophageal reflux (GERD) History of high cholesterol IBS (irritable bowel syndrome) Essential hypertension Ascending aortic aneurysm Surgical History History of laparoscopic cholecystectomy (05/20/23) Hx of colonoscopy History of lumbar surgery (~2012) Family History Father Cancer Mother Cancer Social History Household Members: Family Housing: House Do you presently have visiting nurse or other home services: No Alcohol intake: current Alcohol intake frequency: 0-2 drinks per day Patient Tobacco Use Status: Never used Tobacco service: No Physical Exam Vital Signs: Last Vital Signs Pulse 106 H 06/02/23 10:33 BP 121/71 06/02/23 10:33 Eyes Other: Anicteric GI Other: Abdomen is soft benign. All wounds clean dry and intact healing very well. Assessment & Plan Assessment & Plan (1) S/P laparoscopic cholecystectomy: Comment: Klebsiella oxytoca Code(s): Z90.49 - Acquired absence of other specified parts of digestive tract Plan Patient has been given local instructions, and will follow-up p.r.n.. He would like to resume work which we will allow with 3 weeks light duty. No provided. All questions answered. Coding Level of Care Code Global (58877) Diagnoses S/P laparoscopic cholecystectomy Z90.49
[2023-06-02 10:33] VITALS: BP 121/71; PULSE 106
== END 2023-06-02 10:40 | disposition home or self-care (01) ==
PROVIDERS: PCP Physician Assistant; Visit Provider Surgery
DX: Z90.49 Acquired absence of other specified parts of digestive tract (principal)
CPT/HCPCS: 99024

== ENCOUNTER → 2023-06-02 10:16 | Outpatient (BNVA) | payer OTHER, SELFPAY | PROVIDERS: PCP Physician Assistant; Visit Provider Surgery ==

== ENCOUNTER → 2023-07-08 12:57 | Outpatient (REF) | payer OTHER, SELFPAY ==
--- NOTE | 2023-07-08 13:01 | CA_ITS ---
Transthoracic Echocardiogram Patient (Last, First, Middle): Alex Samuel, Gender: Male Date of : 1950 Age: 73 Procedure Date: 07/08/2023 Procedure Type: Transthoracic Echocardiogram Location: OP Height: 177.8 cm Weight: 88.99 kg BSA: 2.07 m2 Heart Rate: bpm BP: 122 / 68 mmHg [employer] Nurse: Referring MD: Gavin Cruz MD Symptoms: I71.2 - Thoracic aortic aneurysm, without rupture Study Quality: Fair ECG Rhythm: Sinus Conclusions: - The left ventricular systolic function is normal. The calculated ejection fraction is 57% by biplane method. - No obvious valvular pathology seen on this study. - There is mild dilatation of the ascending aorta measuring 4.20 cm. Findings Left Ventricle Normal left ventricular cavity size. There is mildly increased left ventricular wall thickness. The left ventricular systolic function is normal. The calculated ejection fraction is 57% by biplane method. There is no evidence of regional wall motion abnormalities. Evidence suggests grade I (mild) diastolic dysfunction. Right Ventricle Normal right ventricular cavity size and systolic function. Atria Both atria are normal in size. Aortic Valve There is mild calcification of the aortic valve. There is no aortic valve stenosis. There is no aortic valve regurgitation. Mitral Valve There is mild anterior mitral leaflet thickening. There is no mitral valve regurgitation. There is no mitral valve stenosis. Pulmonic Valve The pulmonic valve is likely normal. Tricuspid Valve Normal tricuspid valve structure. There is trace tricuspid valve regurgitation. There is no evidence of pulmonary hypertension. Great Vessels There is mild dilatation of the ascending aorta measuring 4.20 cm. Venous The inferior vena cava is normal in size and collapses greater than 50% with inspiration. Pericardium/Pleural There is no evidence of pericardial effusion. Prior Study Comparison No significant change compared to prior study dated: 08/19/2022. Recommendations, Care & Conclusions No obvious valvular pathology seen on this study. Measurements 2D Linear Measurements IVSd: 1.20 0.6-0.9/0.6-1.0 cm LVIDd: 3.75 3.9-5.3/4.2-5.9 cm LVIDd Index: 1.81 2.4-3.2/2.2-3.1 cm/m2 LVIDs: 2.42 2.0-3.6 cm LVPWd: 1.24 0.7-1.1 cm Ao Root: 4.00 2.1-3.5 cm LA Diam: 2.90 2.7-3.8/3.0-4.0 cm LAIDs Index: 1.40 1.5-2.3 cm/m2 LV Mass: 191.82 67-162/88-224 g LV Mass Index: 92.67 43-95/49-115 g/m2 LVOT Diam: 2.00 3.0+(-)1.3 cm 2D Systolic Function EF 4C: 58.60 >55% EF 2C: 53.10 >55% EF BiP: 57.10 >55% Mitral Valve MV Pk E: 0.61 MV PK A: 1.17 MV Decel Time: 177.00 E/A: 0.50 E'Lateral: 4.79 E'Medial: 5.22 E/E' Med: 11.70 E/E' Lat: 12.80 PHT: 52.00 MVA PHT: 4.23 Decel [place]: 3.47 Aortic Valve AoV Pk Ludwig: 1.35 AoV Mn Ludwig: 0.97 AoV VTI: 0.26 AoV Pk Grad: 7.00 Aov Mn Grad: 5.00 MAEGAN Cont.VTI: 2.31 LVOT LVOT Pk Ludwig: 0.94 LVOT Mn Ludwig: 0.67 LVOT VTI: 0.19 LVOT Pk Grad: 3.00 LVOT Mn Grad: 2.00 LVOT Diam: 2.00 LVOT Area: 3.14 Diastolic Function MV Pk E: 0.61 MV Pk A: 1.17 E/A: 0.50 E'Medial: 5.22 E/E' Med: 11.70 E' Laterial: 4.79 E/E' Lat: 12.80 Right Ventricle TAPSE (mm): 26.00 TVS' Ludwig: 14.00 Tricuspid Valve TR Pk Ludwig: 2.29 TR Pk Grad: 21.00 RA Press: 3.00 RVSP: 24.00 Great Vessels Aorta Ao Root-2D: 4.00 2.0-3.7 cm Ao Asc: 4.20 2.1-3.4 cm Pulmonary Valve PV Pk Ludwig: 0.94 Peak PV Grad: 4.00 Updated in Other Vendor System with Status of Final Gavin Cruz MD electronically signed on 07/10/2023 5:12:27 PM with status of Final
== END ==
LOC: HO.CARD 12:57
PROVIDERS: Visit Provider Internal Medicine
DX: I71.20 Thoracic aortic aneurysm, without rupture, unspecified (principal)
CPT/HCPCS: 93306

== ENCOUNTER → 2023-07-08 13:01 | Outpatient (BNV) | payer OTHER, SELFPAY | PROVIDERS: Visit Provider Internal Medicine | DX: I71.21 Aneurysm of the ascending aorta, without rupture (principal) | CPT/HCPCS: 93306 ==

== ENCOUNTER 2023-09-23 12:15 | Outpatient (AMB) | payer OTHER, SELFPAY ==
--- NOTE | 2023-09-23 12:31 | A.OFFVIS_ITS ---
Vital Signs 09/23/23 12:35 Weight 199 lb 11.821 oz BP 90/60 Blood Pressure Location Lt brachial Position Sitting Pulse 62 Pulse Source Pulse Oximeter Intake Visit Reasons: f/up pt r/s from [id number] [employer] Frames Required: No Accompanied by: Self / Same As Patient Allergies No Known Allergies [No Known Allergies*] Allergy (Verified 06/02/23 10:32) Medication List - Last Reconciled 09/23/23 by Gavin Cruz MD albuterol sulfate 90 mcg/actuation 2 puffs inhalation Q6H PRN amlodipine-olmesartan 5-20 mg 1 tab PO DAILY docusate sodium (Colace) 100 mg PO BID fluoxetine 20 mg PO DAILY fluticasone furoate-vilanterol 200-25 mcg/dose (Breo Ellipta) 1 ea inhalation DAILY ibuprofen 800 mg PO TID PRN ipratropium bromide 2 sprays intranasal TID PRN multivitamin 1 tab PO DAILY omeprazole 40 mg PO DAILY prasterone (dhea) (DHEA) 100 mg PO DAILY pravastatin 10 mg PO DAILY HPI Comments Details: Alex is here for follow-up regarding aortic aneurysm. In the past, he has had some atypical pains in the epigastric area radiating to the chest and that led to a stress test that was unremarkable. Echocardiogram had then showed mild ascending aortic dilatation. Overall, he is doing good. No complaints like angina or palpitations or shortness of breath or any other concerns. 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 Today, blood pressure slightly low but not clear if it is because of high heat and dehydration. PENDING SALE TO [facility] Medical History Umbilical hernia, incarcerated (05/20/23) Hx of gastroesophageal reflux (GERD) History of high cholesterol IBS (irritable bowel syndrome) Essential hypertension Ascending aortic aneurysm Surgical History History of laparoscopic cholecystectomy (05/20/23) Hx of colonoscopy History of lumbar surgery (~2012) Family History Father Cancer Mother Cancer Social History Household Members: Family Housing: House Do you presently have visiting nurse or other home services: No Alcohol intake: current Alcohol intake frequency: 0-2 drinks per day Patient Tobacco Use Status: Never used Tobacco service: No Review of Systems Const Denies chills, Denies fatigue, Denies fever(s), Denies weight gain and Denies weight loss ENT Denies dizziness Card Denies chest pain, Denies leg edema, Denies lightheadedness, Denies palpitations, Denies dyspnea on exertion, Denies orthopnea and Denies other Resp Denies cough and Denies dyspnea on exertion GI Denies hematochezia and Denies change in stool character Musc Denies abnormal gait, Denies muscle weakness, Denies numbness, Denies radiating pain into limb and Denies tingling Neuro Denies abnormal gait, Denies dizziness, Denies numbness and Denies tingling Endo Denies fatigue and Denies palpitations Physical Exam Vital Signs: Last Vital Signs Pulse 62 09/23/23 12:35 BP 90/60 09/23/23 12:35 Const General: comfortable and no acute distress Orientation/consciousness: patient oriented x3 HEENT Other: Unremarkable Head: Yes normal to inspection Neck Neck: Yes normal visual inspection Chest Chest palpation & inspection: normal inspection of the chest Resp Auscultation: clear to auscultation bilaterally Cardio Palpation: normal PMI Heart sounds: S1 normal heart sound present, S2 normal heart sound present, no gallops, no murmurs and no rubs GI Palpation (GI): Soft to palpation Back/Spine/Pelvis Other: unremarkable Skin General skin exam: no rashes or lesions noted Neuro General: patient oriented x3 Extrem General: Yes normal to inspection Psych Mental Status: mental status grossly normal Assessment & Plan Assessment & Plan (1) Ascending aortic aneurysm: Code(s): I71.2 - Thoracic aortic aneurysm, without rupture Category: Medical Qualifiers: Presence of rupture: without rupture Qualified Code(s): I71.21 - Aneurysm of the ascending aorta, without rupture (2) Essential hypertension: Code(s): I10 - Essential (primary) hypertension Category: Medical Plan Cardiac testing reviewed. In the most recent echocardiogram, ascending aortic size 4.2 cm. Similar to prior. In the stress test from 2022, no angina or EKG evidence of ischemia at 5.8 METS. Echocardiographic component was unremarkable. With regard to blood pressure, on the lower side today. Advised him to do home blood pressure checks. Unclear if it is due to the high heat outside and possible dehydration. He will contact us with concerns. Currently on Amlodipine/Olmesartan. If consistently low, may need to cut back on meds but he runs more high blood pressures then low. Will repeat an echocardiogram in 1 year for aortic size. Orders: Orders CA echo transthoracic complete 1 Year I71.21 - Aneurysm of the ascending aorta, without rupture Coding Level of Care Code Est Pt Level 3 (01625) Diagnoses Aneurysm of ascending aorta without rupture I71.21 Presence of rupture: without rupture Essential hypertension I10
[2023-09-23 12:35] VITALS: BP 90/60; PULSE 62
== END 2023-09-23 12:48 | disposition home or self-care (01) ==
PROVIDERS: PCP Physician Assistant; Visit Provider Internal Medicine
DX: I71.21 Aneurysm of the ascending aorta, without rupture (principal); I10 Essential (primary) hypertension
CPT/HCPCS: 99213

== ENCOUNTER → 2023-09-23 12:15 | Outpatient (BNVA) | payer OTHER, SELFPAY | PROVIDERS: Visit Provider Internal Medicine ==

== ENCOUNTER → 2024-02-03 12:42 | Outpatient (REF) | payer OTHER, SELFPAY ==
--- NOTE | 2024-02-03 12:44 | CA_ITS ---
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 The calculated ejection fraction is 67% by biplane method. - No obvious valvular pathology seen on this study. - There is mild dilatation of the ascending aorta measuring 3.90 cm. Findings Left Ventricle Normal left ventricular cavity size. There is mildly increased left ventricular wall thickness. The left ventricular systolic function is normal. The calculated ejection fraction is 67% by biplane method. There is no evidence of regional wall motion abnormalities. Evidence suggests grade I (mild) diastolic dysfunction. Right Ventricle Normal right ventricular cavity size and systolic function. Atria Both atria are normal in size. Aortic Valve The aortic valve was not well visualized. There is mild calcification of the aortic valve. There is no aortic valve stenosis. There is no aortic valve regurgitation. Mitral Valve There is mild anterior mitral leaflet thickening. There is no mitral valve regurgitation. There is no mitral valve stenosis. Pulmonic Valve The pulmonic valve is likely normal. Tricuspid Valve There is trace tricuspid valve regurgitation. There is no evidence of pulmonary hypertension. Great Vessels There is mild dilatation of the ascending aorta measuring 3.90 cm. Venous The inferior vena cava is normal in size and collapses greater than 50% with inspiration. Pericardium/Pleural There is no evidence of pericardial effusion. Prior Study Comparison No significant change compared to prior study dated: 07/08/2023. Ascending aortic size is smaller, could be underestimation. Recommendations, Care & Conclusions No obvious valvular pathology seen on this study. Measurements 2D Linear Measurements IVSd: 1.15 0.6-0.9/0.6-1.0 cm LVIDd: 3.97 3.9-5.3/4.2-5.9 cm LVIDd Index: 1.91 2.4-3.2/2.2-3.1 cm/m2 LVIDs: 2.32 2.0-3.6 cm LVPWd: 1.13 0.7-1.1 cm Ao Root: 3.80 2.1-3.5 cm LA Diam: 2.90 2.7-3.8/3.0-4.0 cm LAIDs Index: 1.39 1.5-2.3 cm/m2 LV Mass: 188.83 67-162/88-224 g LV Mass Index: 90.78 43-95/49-115 g/m2 LVOT Diam: 2.30 3.0+(-)1.3 cm 2D Systolic Function EF 4C: 62.70 >55% EF 2C: 72.30 >55% EF BiP: 67.00 >55% Mitral Valve MV Pk E: 0.51 MV PK A: 1.00 MV Decel Time: 168.00 E/A: 0.50 E'Lateral: 7.18 E'Medial: 6.09 E/E' Med: 8.30 E/E' Lat: 7.10 PHT: 49.00 MVA PHT: 4.49 Decel [place]: 3.02 Aortic Valve AoV Pk Ludwig: 1.93 AoV Pk Grad: 15.00 LVOT LVOT Pk Ludwig: 1.18 LVOT Mn Ludwig: 0.87 LVOT VTI: 0.24 LVOT Pk Grad: 6.00 LVOT Mn Grad: 4.00 LVOT Diam: 2.30 LVOT Area: 4.15 Diastolic Function MV Pk E: 0.51 MV Pk A: 1.00 E/A: 0.50 E'Medial: 6.09 E/E' Med: 8.30 E' Laterial: 7.18 E/E' Lat: 7.10 Right Ventricle TAPSE (mm): 17.00 TVS' Ludwig: 12.00 Tricuspid Valve TR Pk Ludwig: 2.31 TR Pk Grad: 21.00 RA Press: 3.00 RVSP: 24.00 Great Vessels Aorta Ao Root-2D: 3.80 2.0-3.7 cm Ao Asc: 3.90 2.1-3.4 cm Pulmonary Valve PV Pk Ludwig: 1.08 Peak PV Grad: 5.00 Updated in Other Vendor System with Status of Final Gavin Cruz MD electronically signed on 02/05/2024 1:34:48 PM with status of Final
== END ==
LOC: HO.CARD 12:42
PROVIDERS: Absent Provider Internal Medicine; PCP Physician Assistant; Visit Provider Physician Assistant
DX: I71.21 Aneurysm of the ascending aorta, without rupture (principal); R55 Syncope and collapse
CPT/HCPCS: 93306

== ENCOUNTER → 2024-02-03 12:44 | Outpatient (BNV) | payer OTHER, SELFPAY | PROVIDERS: Absent Provider Internal Medicine; PCP Physician Assistant; Visit Provider Internal Medicine | DX: I71.21 Aneurysm of the ascending aorta, without rupture (principal) | CPT/HCPCS: 93306 ==

== ENCOUNTER 2024-02-12 15:16 | Outpatient (AMB) | payer OTHER, SELFPAY ==
--- NOTE | 2024-02-12 15:46 | A.OFFVIS_ITS ---
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 Allergies No Known Allergies [No Known Allergies*] Allergy (Verified 02/12/24 15:50) Medication List - Last Reconciled 02/12/24 by Tiesha Heart NP-C albuterol sulfate 90 mcg/actuation 2 puffs inhalation Q6H PRN amlodipine-olmesartan 5-20 mg 1 tab PO DAILY fluoxetine 20 mg PO DAILY fluticasone furoate-vilanterol 200-25 mcg/dose (Breo Ellipta) 1 ea inhalation DAILY ibuprofen 800 mg PO TID PRN ipratropium bromide 2 sprays intranasal TID PRN multivitamin 1 tab PO DAILY omeprazole 40 mg PO DAILY pravastatin 10 mg PO DAILY HPI HPI 2wk f/up-[facility] per DC: Details: Alex is a 73-year-old male with past medical history of hypertension, ascending aortic aneurysm who presents for follow-up after recent echocardiogram. Today he reports that he has been doing well with no concerning symptoms. He denies chest discomfort at rest or with activity. No shortness of breath, PND, orthopnea or edema. No palpitations, lightheadedness, presyncope, syncope. Tries to remain physically active. Compliant with meds. [facility] Medical History Essential hypertension Ascending aortic aneurysm Umbilical hernia, incarcerated (05/20/23) Hx of gastroesophageal reflux (GERD) History of high cholesterol IBS (irritable bowel syndrome) Surgical History History of laparoscopic cholecystectomy (05/20/23) Hx of colonoscopy History of lumbar surgery (~2012) Family History Father Cancer Mother Cancer Social History Household Members: Family Housing: House Do you presently have visiting nurse or other home services: No Alcohol intake: current Alcohol intake frequency: 0-2 drinks per day Patient Tobacco Use Status: Never used Tobacco service: No Review of Systems Const All systems reviewed & are unremarkable except as noted in HPI and below ENT Denies dizziness Card Denies chest pain, Denies chest pain at rest, Denies chest pain with activity, Denies rapid heart rate, Denies pedal edema, Denies edema, Denies leg edema, Denies lightheadedness, Denies palpitations, Denies dyspnea, Denies dyspnea on exertion and Denies orthopnea Resp Denies cough, Denies dyspnea and Denies dyspnea on exertion GI Denies hematochezia and Denies change in stool character Musc Denies abnormal gait, Denies limited range of motion, Denies muscle cramps, Denies muscle weakness, Denies numbness, Denies radiating pain into limb, Denies stiffness and Denies tingling Neuro Denies abnormal gait, Denies dizziness, Denies numbness and Denies tingling Endo Denies palpitations Physical Exam Vital Signs: Last Vital Signs Pulse 84 02/12/24 15:48 BP 122/60 02/12/24 15:48 BMI result Body Mass Index 29.2 Const General: cooperative, healthy appearing, comfortable and no acute distress Orientation/consciousness: patient oriented x3 Neck Neck: Yes normal visual inspection Resp Effort & Inspection: normal respiratory effort Auscultation: clear to auscultation bilaterally, no crackles, no rales, no rhonchi and no wheezes Cardio Jugular venous distension: no JVD Rate: regular rate Rhythm: regular rhythm Heart sounds: S1 normal heart sound present, S2 normal heart sound present, no murmurs and no rubs Neuro General: patient oriented x3 Extrem General: Yes normal to inspection, No no pedal edema and No calf tenderness Psych Appearance: grossly normal Mental Status: mental status grossly normal Speech and movement: Normal speech and movement present Assessment & Plan Assessment & Plan (1) Ascending aortic aneurysm: Code(s): I71.2 - Thoracic aortic aneurysm, without rupture Category: Medical Qualifiers: Presence of rupture: without rupture Qualified Code(s): I71.21 - Aneurysm of the ascending aorta, without rupture Plan: History dilated ascending aorta which is being followed by periodic echocardiograms. Echocardiogram done 07/08/2023 shows ascending aorta 4.2 cm. Prior to that echocardiogram done 07/19/2022 showed ascending aorta 4.2 cm. An echocardiogram was done on 02/03/2024 which shows ascending aorta 3.9 cm which could be underestimated. Test results reviewed with him in detail. The importance of good blood pressure control discussed. Blood pressure currently normal range 122/60. He continues on amlodipine/olmesartan. He is on pravastatin. Will plan for a repeat echocardiogram 1 year from the last with c ardiology follow-up 1 year, sooner if needed. Emergency care if ever needed for chest discomfort. (2) Essential hypertension: Code(s): I10 - Essential (primary) hypertension Category: Medical Plan: As above Plan Time spent on chart review, documentation, interview and assessment Orders: Orders CA echo transthoracic complete 11 Months I10 - Essential (primary) hypertension, I71.21 - Aneurysm of the ascending aorta, without rupture Coding Level of Care Code Est Pt Level 4 (09934) Complex EM visit Add On G2211 Diagnoses Aneurysm of ascending aorta without rupture I71.21 Presence of rupture: without rupture Essential hypertension I10 Time Spent (min) 28
[2024-02-12 15:48] VITALS: BP 122/60; PULSE 84; BMI 29.2
== END 2024-02-12 16:18 | disposition home or self-care (01) ==
PROVIDERS: PCP Physician Assistant; Visit Provider Nurse Practitioner Family
DX: I71.21 Aneurysm of the ascending aorta, without rupture (principal); I10 Essential (primary) hypertension
CPT/HCPCS: 99214

== ENCOUNTER → 2024-02-12 15:16 | Outpatient (BNVA) | payer OTHER, SELFPAY | PROVIDERS: PCP Physician Assistant; Visit Provider Nurse Practitioner Family ==

== ENCOUNTER 2024-08-14 21:34 | Emergency (ER) | payer OTHER, SELFPAY ==
--- NOTE | 2024-08-14 | ECG_ITS ---
Test Reason : FALL Blood Pressure : */* mmHG Vent. Rate : 74 BPM Atrial Rate : 74 BPM P-R Int : 208 ms QRS Dur : 92 ms QT Int : 410 ms P-R-T Axes : 7 -4 33 degrees QTcB Int : 455 ms Sinus rhythm with Premature atrial complexes Inferior infarct , age undetermined Abnormal ECG When compared with ECG of 18-May-2023 17:43, Premature atrial complexes are now Present Referred By: Generic ED Physician Electronically Signed By: FAHAD WILDE
--- NOTE | ~2024-08-14 | CT_ITS ---
CLINICAL HISTORY: s p fall CT head without contrast Comparison: None Findings: No intra-axial mass, midline shift, hydrocephalus, or acute hemorrhage. There is atrophy. There are nonspecific supratentorial white matter hypodensities most suggestive of chronic small-vessel ischemic changes. Right lateral frontal lobe encephalomalacia. Atherosclerotic vascular disease. There is mild mucosal thickening in right maxillary sinus and bilateral ethmoid air cells. The orbits are unremarkable. No acute skull fracture. 4 mm round metallic foreign body in nasal soft tissues on the left. IMPRESSION: 1. No acute intracranial findings. 2. Right lateral frontal lobe encephalomalacia likely nonacute infarcts or other insult to the brain. 3. Additional nonacute findings as described. This document has been electronically signed by: Danica Walker MD on 08/15/2024 00:45:48
--- NOTE | ~2024-08-14 | CT_ITS ---
CLINICAL HISTORY: s p fall CT cervical spine without contrast Comparison: None Findings: Normal vertebral body alignment. Degenerative changes at C3-4, C4-5, C5-6 and C6-7 with bilateral foraminal stenosis at C3-4 and C5-6. No acute fractures or dislocations. Craniocervical junction is intact. Prevertebral soft tissues within normal limits. Atherosclerotic vascular disease with retropharyngeal course of right carotid artery. Lung apices are clear. Azygous lobe on the right. IMPRESSION: No acute findings. This document has been electronically signed by: Danica Walker MD on 08/15/2024 00:50:20
--- NOTE | ~2024-08-14 | CT_ITS ---
CLINICAL HISTORY: trauma CT chest without contrast Comparison: None Findings: This is a limited non IV contrast study. The exam is also limited due to motion artifact. The heart size is normal. The visualized thyroid and mediastinum are unremarkable. There is scattered bilateral pulmonary scarring most significant within the lower lobes. There are mild dependent hypoventilatory changes most significant within the right lower lobe. There is mild basilar right pulmonary opacity. No consolidation or effusion. Incidentally noted is a right lateral posterior chest and abdominal wall hernia within thinning of the aponeurosis with herniation of the right lower lung, right hepatic lobe and colon into the hernia defect. Surgical clips within the right upper quadrant from prior cholecystectomy. There are duodenal diverticula. No acute findings within the upper abdomen. There is a small hiatal hernia. There are old left rib fractures. There is mild cortical deformity left lower ribs. There is thoracic kyphosis with significant multilevel degenerative changes of the thoracic spine. There are mild multilevel schmorl's nodes. There are significant degenerative changes of bilateral shoulders incompletely included on the field of view. IMPRESSION: This is a limited non IV contrast study. The exam is also limited due to motion artifact. Old left rib fractures, mild deformity left lower ribs age indeterminate age fractures possible acute nondisplaced fractures correlate with clinical history and physical exam Mild scattered pulmonary scarring and mild dependent hypoventilatory changes, mild right basilar ground-glass pulmonary opacity secondary to hypoventilatory changes and/or pneumonia can not exclude aspiration pneumonia Chronic and incidental findings as above This document has been electronically signed by: Zackery Brown MD on 08/15/2024 04:20:17
[2024-08-14 21:40] VITALS: BP 133/78; BP 144/90; PULSE 81; PULSE 96; RESP 18; O2SAT 95; O2SAT 99; BMI 28.8
[2024-08-14 21:56] LABS: MANUAL DIFF FLAG NO
[2024-08-14 21:57] LABS: Basophils Absolute Auto 0.1 X10*3/uL (0.0-0.2); Basophils Percent Auto 0.8 % (0-2); Eosinophils Absolute Auto 0.4 X10*3/uL (0.0-0.4); Eosinophils Percent Auto 4.4 % (0-4); Hemoglobin 12.5 g/dl (14.0-18.0); Imm Gran Abs Auto 0.06 X10*3/uL (0.00-0.03); Imm Gran Pct Auto 0.6 % (0.0-0.4); Lymphocytes Percent Auto 40.6 % (20-40); Mean Corpuscular HGB Conc 35.7 g/dl (31.0-36.0); Mean Corpuscular Hemoglobin 34.5 pg (27.0-33.0); Mean Corpuscular Volume 96.7 fL (80.0-98.0); Monocytes Absolute Auto 1.1 X10*3/uL (0.1-1.2); Monocytes Percent Auto 11.4 % (2-11); Neutrophils Absolute Auto 4.2 x10*3/uL (2.0-8.3); Neutrophils Percent Auto 42.2 % (45-73); Platelet Count 264 X10*3/uL (160-400); Red Blood Count 3.62 X10*6/uL (4.60-5.80); Red Cell Distribution Width 11.4 % (11.0-16.0)
[2024-08-14 22:04] LABS: Prothrombin Time 11.6 SEC (10.9-12.4)
[2024-08-14 22:07] LABS: Partial Thromboplastin Time 24.7 SEC (26.0-36.8)
--- NOTE | 2024-08-14 22:11 | PC.NURSE ---
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 hx etoh. was sitting down watching tv/attempted to get up and became dizzy. +headstrike to metal bar in room? lacerations also noted to left side of body. bleeding controlled upon arrival. patient/granddaughter reports +thinners but unable to locate in external med hx. patient actively vomiting large amounts of nonbloody vomit upon arrival. distention noted to abd. cholecystectomy x a few months ago. c-collar not in place via EMS as pt was actively vomiting/uncooperative. upon ED arrival - pt a&ox4. neuros intact. answering questions/following commands appropriately. eyes PERRLA. vss and up to date. 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 on RA w/o difficulty. 20gIV placed in the left AC - labs obtained/sent to lab. ekg performed by tech. no sob/wob noted. respirations even/unlabored. family bedside for support. plan of care ongoing. call murdock placed within reach.
[2024-08-14 22:15] LABS: Alanine Aminotransferase 33 U/L (0-40); Albumin Level 4.2 g/dL (3.5-5.0); Alkaline Phosphatase 104 U/L (39-117); Anion Gap 11 (12-20); Aspartate Amino Transferase 31 U/L (5-37); Bilirubin Direct < 0.2 mg/dL (0.0-0.5); Bilirubin Total 0.2 mg/dL (0.0-1.0); Blood Urea Nitrogen 15 mg/dL (9-16); Calcium 8.6 mg/dL (8.4-10.2); Carbon Dioxide 23 mmol/L (22-29); Chloride 100 mmol/L (96-108); Creatinine Clr Calc Pharmacy 94.1; Estimated Glomerular Filt Rate > 60; Ethanol 252 mg/dL; Glucose Random 107 mg/dL (60-115); Lipase 88 U/L (8-78); Magnesium 1.9 mg/dL (1.6-2.6); Potassium 3.7 mmol/L (3.3-5.1); Sodium 130 mmol/L (135-145); Total Protein 6.9 g/dL (6.5-8.0)
--- OUTSIDE RECORDS SUMMARY | 2024-08-14 22:21 | XMS_ITS | Patient Health Record ---
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 Role Phone Amy Lazcano Primary Care Provider UnavailHany Yeager Unavailable [phone] Mirtha Clarke Unavailable [phone] Allergies Allergen (clinical drug ingredient) Drug/Non Drug Allergy documented on EMR Reaction Allergy Type Onset Date Status seasonal (uncoded) Unknown Allergy A ctive Reason For Referral No Information Medications Medication SIG (Take, Route, Frequency, Duration) Notes Start Date End Date Status OT Refurbishment Refurbish, both with left offloading navicular 01/13/2019 Not-Taking Pravastatin Sodium 20 MG 1 tablet Orally Once a day for 30 day(s) Active Sildenafil Citrate 25 MG as directed Orally Not-Taking FLUoxetine HCl 20 MG 1 capsule in the morning Orally Once a day for 30 day(s) Active Omeprazole 20 MG 1 capsule Orally Onc e a day for 30 day(s) Active amLODIPine Besylate Active Immunizations Vaccine Route Administration Date Status Comme nts COVID-19 Moderna Vaccine Unknown 02/27/2021 Administered 1st 06/28/2020 2nd 07/26/2020 Social History Tobacco Use: Social History Observation Description Date Details (start date - stop date) Never Smoker NA - NA Tobacco Use/Smoking Question Answer Notes Are you a: nonsmoker Additional Findings: Tobacco Non-User Current no n-smoker Alcohol Screen Question Answer Notes Did you have a drink containing alcohol in the p ast year? Yes Points 0 Interpretation Negative Tobacco use other than smoking: Question Answer Notes Are you an other tobacco user? No Problems Problem Type SNOMED Code ICD Code Onset Dates Problem Status W/U Status Risk Notes Problem Atherosclerosis of [place] arteries of the extremities ([id number]) Atherosclerosis of [place] artery of both lower extremities, with unspecified presence of clinical manifestation (I70.203) Active confirmed Vital Signs Blood pressure diastolic 80 mm Hg 06/11/2024 Height 0my74wk in 06/11/2024 Blood pressure systolic 140 mm Hg 06/11/2024 Weight 195 lbs 06/11/2024 BMI 27.98 kg/m2 06/11/2024 Procedures Procedure Date Ordered Date Performed Result Body Sit e 14108-WJHFWSD NAIL, 6 OR MORE 10/31/2023 N/A 78164-EION SKIN LESIONS, OVER 4 10/31/2023 N/A 90569-VFQOGGE NAIL, 6 OR MORE 01/30/2024 N/A 06917-SEWN SKIN LESIONS, OVER 4 01/30/2024 N/A Encounters Encounter Location Date Provider Diagnosis [address] [address] 10/31/2023 Hany Choe Atherosclerosis of [place] artery of both lower extremities, with unspecified presence of clinical manifestation I70.203 ; Onychomycosis B35.1 ; Pain of toe of right foot M79.674 and Pain of toe of left foot M79.[address] [address] 01/30/2024 Hany Choe Atherosclerosis of [place] artery of both lower extremities, with unspecified presence of clinical manifestation I70.203 ; Onychomycosis B35.1 ; Pain of toe of right foot M79.674 and Pain of toe of left foot M79.[address] [address] 06/11/2024 Mirtha Clarke Atherosclerosis of [place] artery of both lower extremities, with unspecified presence of clinical manifestation I70.203 ; Onychomycosis B35.1 ; Pain of toe of right foot M79.674 and Pain of toe of left foot M79.675 Assessments Encounter Date Diagnosis (ICD Code) Assessment Notes Treatment Notes Treatment Clinical Notes Section Notes 10/31/2023 Onychomycosis (ICD-10 - B35.1) 10/31/2023 Atherosclerosis of [place] artery of both lower extremities, with unspecified presence of clinical manifestation (ICD-10 - I70.203) 01/30/2024 Onychomycosis (ICD-10 - B35.1) 01/30/2024 Atherosclerosis of [place] artery of both lower extremities, with unspecified presence of clinical manifestation (ICD-10 - I70.203) 06/11/2024 Onychomycosis (ICD-10 - B35.1) 06/11/2024 Atherosclerosis of [place] artery of both lower extremities, with unspecified presence of clinical manifestation (ICD-10 - I70.203) 01/30/2024 Pain of toe of right foot (ICD-10 - M79.674) 06/11/2024 Pain of toe of right foot (ICD-10 - M79.674) 10/31/2023 Pain of toe of right foot (ICD-10 - M79.674) 10/31/2023 Pain of toe of left foot (ICD-10 - M79.675) 06/11/2024 Pain of toe of left foot (ICD-10 - M79.675) 01/30/2024 Pain of toe of left foot (ICD-10 - M79.675) Plan Of Treatment Pending Test Test Name Order Date 75637-SODUNJQ NAIL, 6 OR MORE 02/21/2020 27206-VEQLIIJ NAIL, 6 OR MORE 09/22/2020 30276-NJHHMOZ NAIL, 6 OR MORE 12/29/2020 56540-QWXPHML NAIL, 6 OR MORE 03/30/2021 15739-GZAPJRH NAIL, 6 OR MORE 07/06/2021 48823-EGZHBXC NAIL, 6 OR MORE 10/02/2021 28665-NCULEOQ NAIL, 6 OR MORE 01/01/2022 31835-VHEOXNI NAIL, 6 OR MORE 07/12/2022 63284-OBMZJEA NAIL, 6 OR MORE 10/18/2022 58378-FJVWRKA NAIL, 6 OR MORE 01/14/2023 60871-WCVJOXX NAIL, 6 OR MORE 04/15/2023 72714-CPVKODX NAIL, 6 OR MORE 07/18/2023 44297-ZRXTBDM NAIL, 6 OR MORE 10/31/2023 21802-MWOTESD NAIL, 6 OR MORE 01/30/2024 29424-Tvlg Destruction, -07/12/2022 39285-Xxmj Destruction, -14 01/01/2022 67408-Xkhs Destruction, 03-2310/02/2021 19784-Egpy Destruction, -14 07/06/2021 74482-Lbbr Destruction, -14 03/30/2021 18725-Lbli Destruction, 03-2312/29/2020 66258-Oelc Destruction, 03-2309/22/2020 83839-Ieqc Destruction, 03-2302/26/2011 00484-Mybg Destruction, 03-2304/19/2011 23747-Obnp Destruction, 03-2305/31/2011 60565-Vgkm Destruction, 03-2308/16/2011 10771-Zdbk Destruction, 03-2309/24/2011 90240-Naho Destruction, 03-2310/16/2012 97883-Ubwp Destruction, 03-2311/20/2012 27124-Bhve Destruction, 03-2302/26/2013 60850-Eaqv Destruction, 03-2303/25/2013 23544-Lolw Destruction, 03-2304/12/2016 28404-Fkob Destruction, 03-2310/29/2016 96705-Chpj Destruction, 14 11/07/2017 53705-Iztw Destruction, 14 02/24/2018 82149-Zczy Destruction, 03-2302/21/2020 40303-ECFZ SKIN LESIONS, OVER 4 10/19/19 23 57311-PMLJ SKIN LESIONS, OVER 4 10/31/19 24 96180-MIUY SKIN LESIONS, OVER 4 07/18/19 24 23452-BWZF SKIN LESIONS, OVER 4 04/15/19 24 48705-BOWU SKIN LESIONS, OVER 4 01/15/20 23 08538-POIC SKIN LESIONS, OVER 4 01/30/20 24 Next Appt Details Provider Name:Hany Choe , 09/14/2024 11:00:00 AM, [address] [place] [address], [phone], Insurance Providers Payer Name Payer Address Payer Phone Subscriber Number Group Number Insured Name Patient Relationship to Insured Coverage Start Date Coverage End Date [facility] [address] [place] [address] [id number] Alex Samuel Self - patient is the insured Medical (General) History Medical History History ICD Code Cholesterol reflux Surgical History Surgery Date(Month/Year) lower lumbar 03/12/2011 gall bladder removal 06/2023 Hospitalization History Reason Date(Month/Year) C- bronchitis 2020 Lower lumbar- [facility] 03/12/2011 colostomy 05/30/2011
[2024-08-14 22:45] VITALS: BP 133/78; PULSE 75; RESP 12; TEMP 36; O2SAT 93
[2024-08-15 01:31] VITALS: BP 106/55; PULSE 86; RESP 17; TEMP 36.6; O2SAT 97
[2024-08-15] MEDS: 0.9 % Sodium Chloride 1,000 ML 999 ML IV (02:01)
[2024-08-15] MEDS: Morphine Sulfate 4 MG/ML CARTRIDGE IVPUSH (03:04)
[2024-08-15] MEDS: Lidocaine HCl 1%/Epi 1:100,000 10 ML VIAL INFILTRATI (03:05)
--- NOTE | 2024-08-15 03:05 | PC.NURSE ---
family remains at bedside. patient awaiting results from ct scan, medicated per the MAR.
[2024-08-15 03:10] VITALS: BP 96/60; PULSE 82; RESP 16; TEMP 36.4; O2SAT 94
--- NOTE | 2024-08-15 04:16 | ED.GENADULT ---
HPI - General Adult General Chief complaint: Fall Stated complaint: FALL W/HS, +MULTIPLE LACS, THINNERS PER EMS Time Seen by Provider: 08/15/24 01:35 Source: patient and family Limitations: no limitations History of Present Illness ED Provider: Barbie Carrasco PA-C HPI narrative: 74-year-old male with a history of alcohol use disorder, hypertension, COPD, hyperlipidemia, GERD, obesity, presents after fall. Patient was watching TV he stood up lost his balance subsequently falling forward striking his head on a metal table. Patient admits to drinking overnight. Patient complains of left-sided rib pain. Pt not on blood thinners. Related Data Home Medications ?Medication ?Instructions ?Recorded ?Confirmed fluoxetine 20 mg capsule 20 mg PO DAILY 01/04/20 02/12/24 ibuprofen 800 mg tablet 800 mg PO TID PRN Pain 01/04/20 02/12/24 omeprazole 40 mg capsule,delayed 40 mg PO DAILY 01/04/20 02/12/24 release pravastatin 10 mg tablet 10 mg PO DAILY 11/08/20 02/12/24 albuterol sulfate 90 mcg/actuation 2 puff inhalation Q6H PRN wheezing 05/19/23 02/12/24 aerosol inhaler amlodipine 5 mg-olmesartan 20 mg 1 tab PO DAILY 05/19/23 02/12/24 tablet fluticasone furoate 200 1 ea inhalation DAILY 05/19/23 02/12/24 mcg-vilanterol 25 mcg/dose inhalation powder (Breo Ellipta) ipratropium bromide 21 mcg (0.03 2 spray intranasal TID PRN 05/19/23 02/12/24 %) nasal spray allergies multivitamin 1 tab PO DAILY 05/19/23 02/12/24 Previous Rx's ?Medication ?Instructions ?Recorded amoxicillin 875 mg-potassium 1 tab PO Q12H #19 tabs 08/15/24 clavulanate 125 mg tablet doxycycline hyclate 100 mg capsule 100 mg PO BID #19 caps 08/15/24 Allergies Allergy/AdvReac Type Severity Reaction Status Date / Time No Known Allergies Allergy Verified 08/14/24 21:44 [No Known Allergies*] Review of Systems Review of Systems: Unable to obtain secondary to intoxication Yes all other systems are reviewed and are negative PMFSH Past Medical History Attestation statement: The following information was validated with the patient. Medical History Essential hypertension Ascending aortic aneurysm Umbilical hernia, incarcerated (05/20/23) Hx of gastroesophageal reflux (GERD) History of high cholesterol IBS (irritable bowel syndrome) Surgical History History of laparoscopic cholecystectomy (05/20/23) Hx of colonoscopy History of lumbar surgery (~2012) Family History Family History Father Cancer Mother Cancer Social History Social History Household Members: Family Housing: House Do you presently have visiting nurse or other home services: No Alcohol intake: current Alcohol intake frequency: 3 or more drinks per day Patient Tobacco Use Status: Never used Tobacco Use of substances other than those prescribed or required for medical reasons: Unknown Advance Directives: No Advance Directives Information Provided: No Do you have a plan to hurt others: No Plan service: No Physical Exam ED Vital Signs: Vital Signs - 24 hr 08/14/24 21:40 08/14/24 22:45 08/15/24 01:31 Temperature 96.8 F 97.9 F Pulse Rate 81 75 86 Respiratory Rate 18 12 17 Blood Pressure 133/78 133/78 106/55 L Pulse Oximetry 99 93 97 Oxygen Delivery Method Room Air Room Air Room Air 08/15/24 03:10 08/15/24 04:26 Temperature 97.6 F 98.2 F Pulse Rate 82 88 Respiratory Rate 16 16 Blood Pressure 96/60 140/83 H Pulse Oximetry 94 98 Oxygen Delivery Method Room Air Room Air BMI result Body Mass Index 28.8 Const Other: Alert, 3 cm linear laceration located central forehead, minimally bleeding Orientation/consciousness: patient oriented x3 HENMT Other: Alcohol halitosis Chest Other: Pain along left lateral chest wall no deformity Resp Effort & Inspection: normal respiratory effort Cardio Other: normal peripheral perfusion Skin Other: Warm dry no rash Neuro General: patient oriented x3, gait normal, no focal motor deficits and CN's II-XI intact bilaterally Psych Other: Cooperative Medications Administered Discontinued Medications Generic Name Dose Route Start Last Admin Trade Name Freq PRN Reason Stop Dose Admin Sodium Chloride 1,000 mls @ 999 mls/hr 08/15/24 01:45 08/15/24 03:04 Ns IV 08/15/24 02:45 Infused .Q1H1M JASON Infusion Lidocaine/Epinephrine 10 ml 08/15/24 02:22 08/15/24 03:05 Lidocaine Hcl 1%/Epi 1:100,000 10 Ml Vial INFILTRATI 08/15/24 02:23 10 ml ONCE ONE Administration Morphine Sulfate 4 mg 08/15/24 02:40 08/15/24 03:04 Morphine Sulfate 4 Mg/Ml Cartridge IVPUSH 08/15/24 02:41 4 mg ONCE ONE Administration Protocol Procedures Laceration Laceration 1: Site: face Size (cm): 3 Description: linear Depth: simple, single layer Local Anesthetic: lidocaine 1% and with epi Amount of anesthesia used (mL): 5 Pre-repair: irrigated extensively Skin layer closed with: vicryl Size (cm): 5-0 Number of sutures: 7 Technique: simple, interrupted Medical Decision Making Medical Decision Making MDM Narrative: 74-year-old male with a history of alcohol use disorder, hypertension, asthma, hyperlipidemia, GERD, obesity, presents after fall. Patient was watching TV he stood up lost his balance subsequently falling forward striking his head on a metal table. Patient admits to drinking overnight. Patient complains of left-sided rib pain. Pt not on blood thinners. Problem: Alcohol use disorder History: Per patient and family I have considered the following differential diagnoses: Intracranial hemorrhage, cervical spine injury, rib fracture, intoxication Plan: We will be scanning of the patient, he clearly is not a reliable historian, he was vomiting pre arrival, it is concerning for a bleed. However he has no neurologic deficits on exam. We will screen basic labs including a serum ethanol in the event that he has sustained an acute injury and requires admission and/or other intervention. The laceration he sustained of the forehead with require simple repair, tetanus is up-to-date. I have independently reviewed the following tests: Labs: Ethanol 252, no leukocytosis, stable anemia, hyponatremic at 130, no additional electrolyte abnormalities, lipase 88, troponin 5 CT brain:MPRESSION: 1. No acute intracranial findings. 2. Right lateral frontal lobe encephalomalacia likely nonacute infarcts or other insult to the brain. 3. Additional nonacute findings as described. CT cervical spine:indings: Normal vertebral body alignment. Degenerative changes at C3-4, C4-5, C5-6 and C6-7 with bilateral foraminal stenosis at C3-4 and C5-6. No acute fractures or dislocations. Craniocervical junction is intact. Prevertebral soft tissues within normal limits. Atherosclerotic vascular disease with retropharyngeal course of right carotid artery. Lung apices are clear. Azygous lobe on the right. IMPRESSION: No acute findings. CT chest: IMPRESSION: This is a limited non IV contrast study. The exam is also limited due to motion artifact. Old left rib fractures, mild deformity left lower ribs age indeterminate age fractures possible acute nondisplaced fractures correlate with clinical history and physical exam Mild scattered pulmonary scarring and mild dependent hypoventilatory changes, mild right basilar ground-glass pulmonary opacity secondary to hypoventilatory changes and/or pneumonia can not exclude aspiration pneumonia Chronic and incidental findings as above The patient states he has been having a cough, I can hear basilar crackles on the right, we will treat for pneumonia, he is not a smoker, he does have asthma. Given suspect aspiration pneumonia, we will cover with doxy and Augmentin Lab Data 08/14/24 21:52 08/14/24 21:52 Labs: Lab Results 08/14/24 Range/Units 21:52 WBC 10.0 (4.8-10.8) X10*3/uL RBC 3.62 L (4.60-5.80) X10*6/uL Hgb 12.5 L (14.0-18.0) g/dl Hct 35.0 L (42.0-52.0) % MCV 96.7 (80.0-98.0) fL MCH 34.5 H (27.0-33.0) pg MCHC 35.7 (31.0-36.0) g/dl RDW 11.4 (11.0-16.0) % Plt Count 264 (160-400) X10*3/uL MPV 9.0 L (9.4-12.4) fL Immature Gran % (Auto) 0.6 H (0.0-0.4) % Neut % (Auto) 42.2 L (45-73) % Lymph % (Auto) 40.6 H (20-40) % [place] % (Auto) 11.4 H (2-11) % Eos % (Auto) 4.4 H (0-4) % Baso % (Auto) 0.8 (0-2) % Lymph # (Auto) 4.0 (1.2-4.9) X10*3/uL [place] # (Auto) 1.1 (0.1-1.2) X10*3/uL Eos # (Auto) 0.4 (0.0-0.4) X10*3/uL Baso # (Auto) 0.1 (0.0-0.2) X10*3/uL Abs Immat Gran (auto) 0.06 H (0.00-0.03) X10*3/uL Absolute Neuts (auto) 4.2 (2.0-8.3) x10*3/uL Absolute Nucleated RBC 0.000 (0.0-0.012) X10*3/uL Nucleated RBC % (auto) 0.0 (0.0-0.2) /100WBC PT 11.6 (10.9-12.4) SEC INR 1.0 (0.9-1.1) APTT 24.7 L (26.0-36.8) SEC Sodium 130 L (135-145) mmol/L Potassium 3.7 (3.3-5.1) mmol/L Chloride 100 (96-108) mmol/L Carbon Dioxide 23 (22-29) mmol/L Anion Gap 11 L (12-20) BUN 15 (9-16) mg/dL Creatinine 0.77 (0.5-1.4) mg/dL Estim Creat Clear Calc 94.1 Estimated GFR > 60 Random Glucose 107 (60-115) mg/dL Calcium 8.6 (8.4-10.2) mg/dL Magnesium 1.9 (1.6-2.6) mg/dL Total Bilirubin 0.2 (0.0-1.0) mg/dL Direct Bilirubin < 0.2 (0.0-0.5) mg/dL AST 31 (5-37) U/L ALT 33 (0-40) U/L Alkaline Phosphatase 104 (39-117) U/L Troponin I High Sens 5.0 (<3.5-35.0) ng/L Total Protein 6.9 (6.5-8.0) g/dL Albumin 4.2 (3.5-5.0) g/dL Lipase 88 H (8-78) U/L Ethyl Alcohol 252 mg/dL Discharge Plan Discharge Clinical Impression: Pneumonia, Facial laceration, Alcohol use disorder, Alcohol intoxication Patient Disposition: Home, Self-Care Instructions: Alcohol Intoxication (ED), Community Acquired Pneumonia (ED), Care For Your Absorbable Stitches (ED) Additional Instructions: CT scan of your brain and cervical spine were normal. The chest CT revealed no rib fractures, however you are developing pneumonia. See home care instructions. Take the Augmentin and doxycycline as directed, be sure to complete the course of each antibiotic. Seven stitches were used to repair the laceration of the forehead, they will absorb on their own. See home care instructions. Follow up with your primary care provider as needed. Prescriptions: New amoxicillin-pot clavulanate 875-125 mg tablet 1 tab PO Q12H Qty: 19 0RF doxycycline hyclate 100 mg capsule 100 mg PO BID Qty: 19 0RF No Action amlodipine-olmesartan 5-20 mg tablet 1 tab PO DAILY fluticasone furoate-vilanterol [Breo Ellipta] 200-25 mcg/dose blister with device 1 ea INHALATION DAILY albuterol sulfate 90 mcg/actuation HFA aerosol inhaler 2 puff INHALATION Q6H PRN (Reason: wheezing) ipratropium bromide 21 mcg (0.03 %) spray,non-aerosol 2 spray intranasal TID PRN (Reason: allergies) multivitamin Tablet 1 tab PO DAILY omeprazole 40 mg capsule,delayed release(DR/EC) 40 mg PO DAILY ibuprofen 800 mg tablet 800 mg PO TID PRN (Reason: Pain) fluoxetine 20 mg capsule 20 mg PO DAILY pravastatin 10 mg tablet 10 mg PO DAILY Stand Alone Forms: Work/School Release Print Language: Portuguese
[2024-08-15 04:26] VITALS: BP 140/83; PULSE 88; RESP 16; TEMP 36.8; O2SAT 98
--- NOTE | 2024-08-15 04:31 | PC.NURSE ---
patient was able to stand w/out dizziness or issue to urinate into urinal. 1000mL output. plan for discharge, family at bedside to bring patient home.
[2024-08-15] MEDS: Doxycycline Monohydrate 100 MG CAPSULE PO (04:39)
[2024-08-15] MEDS: Amoxicillin/Potassium Clav 875 MG TABLET PO (04:39)
[2024-08-15 05:00] VITALS: BP 140/83; PULSE 88; RESP 16; TEMP 36.8; O2SAT 98
== END 2024-08-15 04:50 | disposition home or self-care (01) ==
PROVIDERS: Emergency Provider Internal Medicine
DX: S09.90XA Unspecified injury of head, initial encounter (principal); S01.81XA Laceration without foreign body of other part of head, initial encounter; W08.XXXA Fall from other furniture, initial encounter; Y93.9 Activity, unspecified; Y92.9 Unspecified place or not applicable; Y99.9 Unspecified external cause status; F10.129 Alcohol abuse with intoxication, unspecified; Y90.8 Blood alcohol level of 240 mg/100 ml or more; R07.81 Pleurodynia; I10 Essential (primary) hypertension; J44.9 Chronic obstructive pulmonary disease, unspecified; Z79.899 Other long term (current) drug therapy
CPT/HCPCS: 12013; 36415; 70450; 71250; 72125; 80053; 80307; 82248; 83690; 83735; 84484; 85025; 85610; 85730; 93005; 96361; 96374; 99284; 99285; J2004; J2270

== ENCOUNTER → 2024-08-14 22:05 | Outpatient (BNV) | payer OTHER, SELFPAY | PROVIDERS: Emergency Provider Internal Medicine; Visit Provider Internal Medicine | DX: I49.1 Atrial premature depolarization (principal) | CPT/HCPCS: 93010 ==

== ENCOUNTER → 2024-08-14 22:47 | Outpatient (BNV) | payer OTHER, SELFPAY | PROVIDERS: Visit Provider Specialist | DX: S14.109A Unspecified injury at unspecified level of cervical spinal cord, initial encounter (principal); G93.89 Other specified disorders of brain; W19.XXXA Unspecified fall, initial encounter | CPT/HCPCS: 70450; 72125 ==

== ENCOUNTER → 2024-08-15 02:10 | Outpatient (BNV) | payer OTHER, SELFPAY | PROVIDERS: Emergency Provider Internal Medicine; Visit Provider Radiology Diagnostic Radiology | DX: R07.81 Pleurodynia (principal) | CPT/HCPCS: 71250 ==

== ENCOUNTER → 2024-09-23 08:50 | Outpatient (REF) | payer OTHER, SELFPAY ==
--- NOTE | 2024-09-23 08:56 | CA_ITS ---
Transthoracic Echocardiogram Patient (Last, First, Middle): Alex Samuel, Gender: Male Date of : 1950 Age: 74 Procedure Date: 09/23/2024 Procedure Type: Transthoracic Echocardiogram Location: OP Height: 177.8 cm Weight: 88.45 kg BSA: 2.06 m2 Heart Rate: bpm BP: 140 / 83 mmHg Seismic Computer: SB Referring MD: Gavin Cruz MD Symptoms: I71.21 - Aneurysm of the ascending aorta, without rupture Study Quality: Technically Difficult, contrast ECG Rhythm: Sinus Conclusions: - The left ventricular systolic function is hyperdynamic. The visually estimated ejection fraction is >70%. - There is moderate calcification of the aortic valve. - There is mild dilatation of the sinuses of Valsalva measuring 4.20 cm and mild dilatation of the ascending aorta measuring 4.40 cm. Findings Procedure Information Contrast agent, definity, is being given per protocol without apparent complications. The study quality is limited by the patients inability to tolerate the test. Left Ventricle Normal left ventricular cavity size. The left ventricular systolic function is hyperdynamic. The visually estimated ejection fraction is >70%. There is no evidence of regional wall motion abnormalities. Evidence suggests grade I (mild) diastolic dysfunction. Right Ventricle Normal right ventricular cavity size and systolic function. Atria Both atria are normal in size. Aortic Valve There is moderate calcification of the aortic valve. There is no aortic valve stenosis. There is no aortic valve regurgitation. Mitral Valve There is mild anterior mitral leaflet thickening. There is no mitral valve regurgitation. There is no mitral valve stenosis. Pulmonic Valve The pulmonic valve is likely normal. Tricuspid Valve There is no tricuspid valve regurgitation. Tricuspid regurgitation envelope is inadequate for calculation of right ventricular systolic pressure. Great Vessels There is mild dilatation of the sinuses of Valsalva measuring 4.20 cm and mild dilatation of the ascending aorta measuring 4.40 cm. Venous The inferior vena cava is normal in size and collapses greater than 50% with inspiration. Pericardium/Pleural There is no evidence of pericardial effusion. Prior Study Comparison Changes noted compared to prior study dated: 02/03/2024. Some increase in ascending aortic size, but upon review of older studies variable measurements. Measurements 2D Linear Measurements IVSd: 0.89 0.6-0.9/0.6-1.0 cm LVIDd: 4.11 3.9-5.3/4.2-5.9 cm LVIDd Index: 2.00 2.4-3.2/2.2-3.1 cm/m2 LVIDs: 2.96 2.0-3.6 cm LVPWd: 0.77 0.7-1.1 cm LA Diam: 3.20 2.7-3.8/3.0-4.0 cm LAIDs Index: 1.55 1.5-2.3 cm/m2 LV Mass: 126.65 67-162/88-224 g LV Mass Index: 61.48 43-95/49-115 g/m2 LVOT Diam: 2.30 3.0+(-)1.3 cm 2D Systolic Function EF 4C: 77.30 >55% EF 2C: 73.30 >55% EF BiP: 76.10 >55% Mitral Valve MV Pk E: 0.46 MV PK A: 0.90 MV Decel Time: 232.00 E/A: 0.50 E'Lateral: 7.29 E'Medial: 5.77 E/E' Med: 7.90 E/E' Lat: 6.30 PHT: 68.00 MVA PHT: 3.24 Decel Banks: 1.97 Aortic Valve AoV Pk Ludwig: 1.07 AoV Pk Grad: 5.00 LVOT LVOT Pk Ludwig: 0.79 LVOT Mn Ludwig: 0.55 LVOT VTI: 0.14 LVOT Pk Grad: 3.00 LVOT Mn Grad: 1.00 LVOT Diam: 2.30 LVOT Area: 4.15 Diastolic Function MV Pk E: 0.46 MV Pk A: 0.90 E/A: 0.50 E'Medial: 5.77 E/E' Med: 7.90 E' Laterial: 7.29 E/E' Lat: 6.30 Right Ventricle TVS' Ludwig: 11.50 Great Vessels Aorta Sinus of Valsalva: 4.20 2.0-3.5 cm Ao Asc: 4.40 2.1-3.4 cm Pulmonary Valve PV Pk Ludwig: 0.69 Peak PV Grad: 2.00 Updated in Other Vendor System with Status of Final Gavin Cruz MD electronically signed on 09/25/2024 11:18:48 AM with status of Final
--- OUTSIDE RECORDS SUMMARY | 2024-09-23 09:08 | XMS_ITS | Patient Health Record ---
Author Organization [facility] Address 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 Name Role Phone Amy Lazcano Primary Care Provider UnavailHany Yeager Unavailable [phone] Mirtha Clarke Unavailable [phone] Allergies Allergen (clinical drug ingredient) Drug/Non Drug Allergy documented on EMR Reaction Allergy Type Onset Date Status seasonal (uncoded) Unknown Allergy A ctive Reason For Referral No Information Medications Medication SIG (Take, Route, Frequency, Duration) Notes Start Date End Date Status Omeprazole 20 MG 1 capsule Orally Onc e a day; Duration: 30 day(s) Active FLUoxetine HCl 20 MG 1 capsule in the morning Orally Once a day; Duration: 30 day(s) Active Sildenafil Citrate 25 MG as directed Orally Not-Taking Pravastatin Sodium 20 MG 1 tablet Orally Once a day; Duration: 30 day(s) Active OT Refurbishment Refurbish, both with left offloading navicular 01/13/2019 Not-Taking amLODIPine Besylate Active Immunizations Vaccine Route Administration Date Status Comme nts COVID-19 Moderna Vaccine Unknown 02/27/2021 Administered 1st 06/28/2020 2nd 07/26/2020 Influenza Unknown 12/09/2023 Administered Social History Tobacco Use: Social History Observation Description Date Details (start date - stop date) Never Smoker NA - NA Tobacco use other than smoking: Question Answer Notes Are you an other tobacco user? No Tobacco Control (Standard) Question Answer Notes Tobacco use: Nonsmoker Additional Findings: Tobacco non-user Current no nsmoker AUDIT-C (Standard) Question Answer Notes Did you have a drink contain ing alcohol in the past year? Yes How often did you have a dri nk containing alcohol in the past year? 2 to 4 times a month (2 points) How many drinks did you have on a typical day when you were drinking in the past year? 3 or 4 drinks (1 point) How often did you have six o r more drinks on one occasion in the past year? Less than monthly (1 point) Points 4 Interpretation Positive Problems Problem Type SNOMED Code ICD Code Onset Dates Problem Status W/U Status Risk Notes Problem Bilateral atherosclerosis of arteries of lower limbs (disorder) ([id number] ) Atherosclerosis of benton artery of both lower extremities, with unspecified presence of clinical manifestation (I70.203) Active confirmed Vital Signs Blood pressure diastolic 70 mm Hg 09/14/2024 Height 9cg87ly in 09/14/2024 Blood pressure systolic 140 mm Hg 09/14/2024 Weight 195 lbs 09/14/2024 BMI 27.98 kg/m2 09/14/2024 Procedures Procedure Date Ordered Date Performed Result Body Sit e 44752-ACXFLFP NAIL, 6 OR MORE 09/14/2024 N/A 80117-BSZG SKIN LESIONS, OVER 4 09/14/2024 N/A 29621-DYKD SKIN LESIONS, OVER 4 10/31/2023 N/A 71739-YHLYFQV NAIL, 6 OR MORE 10/31/2023 N/A 98977-KKCY SKIN LESIONS, OVER 4 01/30/2024 N/A 14389-EDMETUN NAIL, 6 OR MORE 01/30/2024 N/A Encounters Encounter Location Date Provider Diagnosis [facility] [address] [address] 10/31/2023 Hany Choe Atherosclerosis of benton artery of both lower extremities, with unspecified presence of clinical manifestation I70.203 ; Onychomycosis B35.1 ; Pain of toe of right foot M79.674 and Pain of toe of left foot M79.675 [facility] [address] 01/30/2024 Hany Choe Atherosclerosis of benton artery of both lower extremities, with unspecified presence of clinical manifestation I70.203 ; Onychomycosis B35.1 ; Pain of toe of right foot M79.674 and Pain of toe of left foot M79.[address] [facility] [address] [address] 06/11/2024 Mirtha Sondrakaryn Atherosclerosis of benton artery of both lower extremities, with unspecified presence of clinical manifestation I70.203 ; Onychomycosis B35.1 ; Pain of toe of right foot M79.674 and Pain of toe of left foot M79.675 [facility] [address] [address] 09/14/2024 Hanygeo DavidsonDaija Atherosclerosis of benton artery of both lower extremities, with unspecified presence of clinical manifestation I70.203 ; Onychomycosis B35.1 ; Pain of toe of right foot M79.674 and Pain of toe of left foot M79.675 Assessments Encounter Date Diagnosis (ICD Code) Assessment Notes Treatment Notes Treatment Clinical Notes Section Notes 10/31/2023 Onychomycosis (ICD-10 - B35.1) 10/31/2023 Atherosclerosis of benton artery of both lower extremities, with unspecified presence of clinical manifestation (ICD-10 - I70.203) 01/30/2024 Onychomycosis (ICD-10 - B35.1) 01/30/2024 Atherosclerosis of benton artery of both lower extremities, with unspecified presence of clinical manifestation (ICD-10 - I70.203) 06/11/2024 Onychomycosis (ICD-10 - B35.1) 06/11/2024 Atherosclerosis of benton artery of both lower extremities, with unspecified presence of clinical manifestation (ICD-10 - I70.203) 09/14/2024 Onychomycosis (ICD-10 - B35.1) 09/14/2024 Atherosclerosis of benton artery of both lower extremities, with unspecified presence of clinical manifestation (ICD-10 - I70.203) 09/14/2024 Pain of toe of right foot (ICD-10 - M79.674) 01/30/2024 Pain of toe of right foot (ICD-10 - M79.674) 06/11/2024 Pain of toe of right foot (ICD-10 - M79.674) 10/31/2023 Pain of toe of right foot (ICD-10 - M79.674) 10/31/2023 Pain of toe of left foot (ICD-10 - M79.675) 09/14/2024 Pain of toe of left foot (ICD-10 - M79.675) 06/11/2024 Pain of toe of left foot (ICD-10 - M79.675) 01/30/2024 Pain of toe of left foot (ICD-10 - M79.675) Plan Of Treatment Pending Test Test Name Order Date 88238-ONEBZEA NAIL, 6 OR MORE 02/21/2020 92330-KMWJEMR NAIL, 6 OR MORE 09/22/2020 19281-MOCQNZV NAIL, 6 OR MORE 12/29/2020 28427-UAUDKRV NAIL, 6 OR MORE 03/30/2021 53686-SGXQGOT NAIL, 6 OR MORE 07/06/2021 99561-FXOMLVM NAIL, 6 OR MORE 10/02/2021 94668-OKEVDIP NAIL, 6 OR MORE 01/01/2022 72455-GNDKXAH NAIL, 6 OR MORE 07/12/2022 84093-UVLLCSI NAIL, 6 OR MORE 10/18/2022 10906-HDALWAB NAIL, 6 OR MORE 01/14/2023 77599-KHRPWJM NAIL, 6 OR MORE 04/15/2023 02057-TOXILCL NAIL, 6 OR MORE 07/18/2023 76286-LEQCNEK NAIL, 6 OR MORE 10/31/2023 14889-LAVIYQQ NAIL, 6 OR MORE 01/30/2024 68584-DETKQYC NAIL, 6 OR MORE 09/14/2024 86864-Dhms Destruction, 1-14 07/12/2022 97368-Coav Destruction, 1-14 01/01/2022 88803-Bjme Destruction, 1-14 10/02/2021 71875-Kkgf Destruction, 1-14 07/06/2021 93666-Jknk Destruction, 1-14 03/30/2021 44207-Tdfr Destruction, 1-14 12/29/2020 64667-Qeeq Destruction, 1-14 09/22/2020 39068-Rpcx Destruction, 1-14 02/26/2011 55784-Eblj Destruction, 1-14 04/19/2011 48778-Upib Destruction, 1-14 05/31/2011 18051-Pqkw Destruction, 03-2308/16/2011 60974-Bnnq Destruction, 03-2309/24/2011 81571-Ahsx Destruction, 03-2310/16/2012 03321-Uzrb Destruction, 03-2311/20/2012 06482-Umxb Destruction, 03-2302/26/2013 24440-Lgmt Destruction, 03-2303/25/2013 84469-Pwyc Destruction, 03-2304/12/2016 36097-Deec Destruction, 03-2310/29/2016 85104-Jbzy Destruction, 03-2311/07/2017 61338-Wajv Destruction, 03-2302/24/2018 84643-Vrwx Destruction, 03-2302/21/2020 00546-MSEG SKIN LESIONS, OVER 4 10/19/19 23 63662-PHWI SKIN LESIONS, OVER 4 10/31/19 24 63980-HWCW SKIN LESIONS, OVER 4 07/18/19 24 29205-QCWL SKIN LESIONS, OVER 4 04/15/19 24 91952-UOLV SKIN LESIONS, OVER 4 01/15/20 23 97242-VDFY SKIN LESIONS, OVER 4 09/15/19 25 60458-BFRG SKIN LESIONS, OVER 4 01/30/20 24 Next Appt Details Provider Name:Hany Choe , 12/14/2024 09:15:00 AM, [address] [place], [address], Insurance Providers Payer Name Payer Address Payer Phone Subscriber Number Group Number Insured Name Patient Relationship to Insured Coverage Start Date Coverage End Date [facility] [address] [place] [address] [id number] Alex Samuel Self - patient is the insured Medical (General) History Medical History History ICD Code Cholesterol reflux Surgical History Surgery Date(Month/Year) lower lumbar 03/12/2011 gall bladder removal 06/2023 Hospitalization History Reason Date(Month/Year) C- bronchitis 2019 Lower lumbar- [facility] 03/12/2011 colostomy 05/30/2011
== END ==
LOC: HO.CARD 08:50
PROVIDERS: PCP Physician Assistant; Visit Provider Internal Medicine
DX: I71.21 Aneurysm of the ascending aorta, without rupture (principal); I10 Essential (primary) hypertension
CPT/HCPCS: 93306; Q9957

== ENCOUNTER → 2024-09-23 08:56 | Outpatient (BNV) | payer OTHER, SELFPAY | PROVIDERS: PCP Physician Assistant; Visit Provider Internal Medicine | DX: I35.8 Other nonrheumatic aortic valve disorders (principal); I51.89 Other ill-defined heart diseases | CPT/HCPCS: 93306 ==